=== PATIENT | female | born 1945 | race Caucasian/White ===

== ENCOUNTER → 2024-11-15 08:28 | Outpatient (REF) | payer OTHER, SELFPAY | LOC: RAD 08:28 | PROVIDERS: ATTENDING PHYSICIAN Surgery Vascular Surgery; FAMILY PHYSICIAN Family Medicine | DX: I65.23 Occlusion and stenosis of bilateral carotid arteries (principal) | CPT/HCPCS: 70496; 70498; Q9967 ==

== ENCOUNTER 2024-11-28 22:19 | Observation (INO) | payer OTHER, SELFPAY ==
[2024-11-28] VITALS (9 sets, daily range): BP systolic 139–186; BP diastolic 48–70; BMI 27.3
[2024-11-28 18:19] LABS: Hematocrit 31.8 % (37.0-47.0); Hemoglobin 10.4 g/dL (12.0-16.0); Mean Corp Hgb Conc. 32.7 g/dL (33.0-37.0); Mean Corpuscular Volume 91.6 fL (81.0-99.0); Nucleated Red Blood Cells % 0 %; Platelet Count 343 10^3/uL (130-400); Red Cell Dist. Width 16.9 % (11.5-14.5)
--- NOTE | 2024-11-28 19:08 | ED.GENMED ---
History of Present Illness
General
Chief Complaint: Breathing Problem
Source: patient
Exam Limitations: none
Time Seen by Provider: 11/28/24 19:09
Nursing documentation reviewed up to this point in time: agreed with
History of Present Illness
History of Present Illness:
The patient is a pleasant 79-year-old female with a past medical history of atrial fibrillation and CHF, on Eliquis, who reports fairly sudden onset of feeling as if it was difficult to catch her breath after walking to the bathroom just prior to
arrival. Patient reports that now after sitting, she feels completely fine. Patient denies all chest pain and chest pressure. She denies weight gain. She denies leg pain, as well as history of PE and DVT. She reports she has been taking Eliquis
reliably and does not skip any days. Patient states she just wants to make sure she is okay. She denies fever and sore throat. She reports a mild dry cough. She denies current shortness of breath.
Past History
Past History
ED Past Medical History: Arrthythmia and CHF
ED Past Surgical History: Bowel resection
Social History
Tobacco: Non-smoker
Alcohol: None
Drug: None
Personal: Other
Living: other
Employment: Other
Family History
Family History: Other
Review of Systems
Review of Systems
Allergies reviewed?: Yes
All Other Systems: ROS reviewed and negative except as documented in HPI and ROS
Constitutional: Reports no symptoms
EENT: Reports no symptoms
Respiratory: Reports cough (Dry cough) and trouble breathing
Cardiac: Reports no symptoms
ABD/GI: Reports no symptoms
: Reports no symptoms
Musculoskeletal: Reports edema (Chronic)
Skin: Reports no symptoms
Neurological: Reports no symptoms
Endocrine: Reports no symptoms
Hematologic/Lymphatic: Reports no symptoms
Psychiatric: Reports no symptoms
Phy Exam
Physical Exam
Physical Exam:
Physical Exam
General: no apparent distress, not acutely ill
Neck: supple. no meningeal signs. normal posterior pharynx
Heart: s1/s2 regular rate and rhythm, no murmur. equal radial pulses.
Lungs: no acute respiratory distress. Questionable decreased breath sounds and mild crackles left lower lung base
Abdomen: normal bowel sounds. not tender. no CVAT
Neuro: alert and oriented. no focal neurological deficits
Skin: no rash
Psychiatric: well kept. interactive and cooperative
Extremities: Trace edema. Negative Homans' sign
Scores
Heart Failure Risk
Heart Failure Risk Score: Not Applicable
Course
Orders/Labs/Results
Orders:
Orders
11/28/24 17:51
Electrocardiogram (*1) Urgent
Reason for Study: Chest Pain
EKG- Treatment ONCE
11/28/24 18:00
Complete Blood Count/With Diff Urgent
11/28/24 19:19
Comprehensive Metabolic Panel Urgent
NT-proBNP Urgent
Comment: ADD ON
Troponin I Urgent
11/28/24 19:33
Add On- LAB Urgent
Tests Added?: Pro-BNP
CR Chest - 2 Views Urgent
Comment:
Reason For Exam: SOB
11/28/24 21:07
Furosemide [Lasix] 40 mg IV NOW STA
11/28/24 21:54
Admit/Transfer Patient As Directed
Co-Sign Provider:
Level of Care: Observation services
Assign to:: Telemetry
Physician / Group: Juan M
Diagnosis: CHF
Reason for Telemetry: Subacute Heart Failure
Date to Stop Telemetry: 11/30/24
Time to Stop Telemetry: 11:00
PRN Pain Medication Management As Directed
May give lesser potent ordered pain med per pt: Yes
preference::
Protocol:: Medication orders for pain may be administered in a
manner that supports deferring to patient preference
when the pt is:
- Requesting an ordered lesser potent pain medication.
Least to most potent pain medications are defined
as: acetaminophen < NSAID < tramadol < opioids
(morphine, oxycodone, hydromorphone).
- Requesting a lesser dose of the same medication IF
ORDERED.
- Requesting a less intrusive route of administration
if both routes are prescribed by the provider (PO <
IV).
11/28/24 21:56
Code Status As Directed
Resuscitation Status: Do not resuscitate
Reached after discussion with pt or family/Healthcare POA: Yes
11/28/24 21:57
DNR Bracelet Application ONCE
11/30/24 11:00
DC Protocol for Telemetry ONCE
Abnormal Lab Results
11/28/24
18:00
RBC 3.47 L 10^6/uL
(4.20-5.40)
Hgb 10.4 L g/dL
(12.0-16.0)
Hct 31.8 L %
(37.0-47.0)
MCHC 32.7 L g/dL
(33.0-37.0)
RDW 16.9 H %
(11.5-14.5)
Absolute Lymphs (auto) 0.9 L 10^3/uL
(1.2-3.4)
Neutrophils % 76.9 H %
(42.2-75.2)
Lymphocytes % 12.1 L %
(20.5-51.1)
11/28/24 18:00
11/28/24 19:19
Vital Signs
Initial and Last Documented VS:
Initial Vital Signs
Temp Pulse Resp BP Pulse Ox
98.3 F 57 16 186/70 91
11/28/24 17:48 11/28/24 17:48 11/28/24 17:48 11/28/24 17:48 11/28/24 17:48
Last Documented Vital Signs
Temp Pulse Resp BP Pulse Ox
98.3 F 54 18 162/49 92
11/28/24 17:48 11/28/24 20:00 11/28/24 20:00 11/28/24 20:00 11/28/24 20:00
MDM/Problems Addressed
Differential Diagnosis Includes:
Acute on chronic CHF, pneumonia, acute on chronic anemia
MDM/Problems Addressed:
Patient presents with acute shortness of breath which is now resolved
Chronic conditions affecting care: Cardiomyopathy and Arrhythmia
Acute Exacerbation and/or Progression of Chronic Illness:
Patient's heart rate is in the 50s and there is no sign of active A-fib
*Radiology
Radiology exam reviewed: preliminary read by ED provider (Chest x-ray read by me. Bilateral pleural effusions)
*Pulse Oximetry
SaO2: 91
Oxygen Mode of Delivery: Room air
Patient hypoxic: yes
Comment: Pulse ox 85% with walking. Resting pulse ox is 91 to 95% on room air
*EKG
Interpreted by ED Provider?: Yes
Interpretation: abnormal
Comparison EKG: no changes
Rate: bradycardiac
Rhythm: sinus
Bruneau: left axis deviation
Interval: normal interval and long QT
QRS Pattern: normal QRS
Ischemia: non-specific ST changes
*Plant Ecologist Interpretation
Rate: bradycardiac
Interpretation: normal
Rhythm: sinus
*Critical Care Note
Total Time (30-74mins, 75-104mins- exclusive of procedures): Not Applicable
Data Reviewed
Review of Other/Old Records Reveals: Testing (Cardiac echo from 08/13/2024 showed EF of 70%)
Source: patient and family
Patient Management
Social determinants of health affecting care: Living situation and Strong social support
ED Attending Note
-
Portions of this chart may have been created with voice recognition software.� Occasional wrong word or��sound alike� substitutions may have occurred due to the inherent limitations of voice recognition software.
Discharge Plan
Departure
Patient Disposition: Admit
Date of Disposition: 11/28/24
Time of Disposition: 21:07
Admit to: Telemetry
Presentation/result/management discussed w/ accepting MD/DO: Hospitalist
Patient with high blood pressure during this ER visit?: Yes
Condition: Good
Discharge Problem:
Acute on chronic systolic CHF (congestive heart failure)
Prescriptions:
No Action
metformin 500 mg Tablet
500 mg PO DAILY
atorvastatin 80 mg Tablet
80 mg PO HS
cyanocobalamin (vitamin B-12) 1,000 mcg Tablet
1,000 mcg PO DAILY
lisinopril 10 mg Tablet
10 mg PO DAILY
escitalopram oxalate [Lexapro] 10 mg Tablet
10 mg PO DAILY
ezetimibe [Zetia] 10 mg Tablet
10 mg PO HS
cholecalciferol (vitamin D3) [Vitamin D3] 50 mcg (2,000 unit) Tablet
50 mcg PO DAILY
aspirin 81 mg Tablet,Delayed Release (Dr/Ec)
81 mg PO DAILY Qty: 30 0RF
levothyroxine 150 mcg Tablet
150 mcg PO DAILY
ferrous sulfate [iron] 325 mg (65 mg iron) Tablet
325 mg PO DAILY
umeclidinium-vilanterol [Anoro Ellipta] 62.5-25 mcg/actuation Blister With Device
1 inh INHALATION R DAILY
furosemide 20 mg Tablet
20 mg PO DAILY
Eliquis 5 mg Tablet
5 mg PO BID
melatonin 5 mg Tablet,Chewable
10 mg PO HS
Referrals:
Sari Maynard DO [Family Provider, Family Practice]
Interventions
Interventions:
*Risk Screen - Suicide Last Done: 11/28/24 17:48
*Neglect/Abuse Screening Last Done: 11/28/24 17:48
*ED- Fall Risk Assessment Last Done: 11/28/24 17:48
ED- Cardiac Assessment Last Done: 11/28/24 19:30
ED- Pulmonary Assessment Last Done: 11/28/24 19:30
Discharge Date and Time
Print Language: CITIZEN OF [place]
[2024-11-28 19:51] LABS: ALT (SGPT) 31 U/L (0-35); AST (SGOT) 34 U/L (14-36); Albumin 3.9 g/dl (3.5-5.0); Alkaline Phosphatase 63 U/L (38-126); Blood Urea Nitrogen 14 mg/dl (7-17); Calcium 8.6 mg/dl (8.4-10.2); Carbon Dioxide 26 mmol/L (22-30); Chloride 106 mmol/L (98-107); Glucose 83 mg/dl (70-99); Potassium 4.3 mmol/L (3.5-5.1); Sodium 139 mmol/L (135-145); Total Protein 6.9 g/dl (6.3-8.2); eGFR 58.02
[2024-11-28 20:03] LABS: Troponin I < 0.012 ng/ml
--- NOTE | 2024-11-28 21:59 | HPS.HSE ---
Family Physician
-
Family Physician: Sari Maynard, DO
Chief Complaint
-
SOB
History of Present Illness
Patient is a 79y F with PMH significant for ASCVD, CHF, A-Fib and recent colon polyp surgery who presents to ED complaining of SOB. Patient states that she was 'breathing heavy' after walking to the bathroom this afternoon. She was feeling well
yesterday with no SOB. She denies any chest pain, fevers / chills, changes in medications, etc. Patient states that she has been compliant with her meds including Lasix and checks her weight at home daily. Her weight is not increased at home.
Family noted some swelling of her ankles this evening.
Patient states that she did eat out for breakfast yesterday AM. She had creamed chipped beef (which she states she does weekly).
Medical History
Past Medical History
Past Medical History: Reports Other
Additional Past Medical History:
ASCVD
Chronic HFpEF
Atrial Fibrillation
Hypertension
DM-II
Hypothyroidism
Colon Polyp
Obesity
Past Surgical History: Reports Other
Additional Past Surgical History:
Partial Colectomy (08/02/24 - [facility])
PTCA with Stents
Right TKA
Right CEA
Left Tibia Bone Grafting
DCCV
Social History
Tobacco: Former Smoker (Quit smoking 2 years ago. > 50 pack years total use.)
Alcohol: Occasional
Drug: None
Family History
Family History: Not pertinent
Allergies / Home Medications
Allergies reflects when Allergies were last updated in [facility].
Home Medications with original date entered in [facility]
Allergy/Medication List:
Allergies
Allergy/AdvReac Type Severity Reaction Status Date / Time
No Known Allergies Allergy Verified 11/28/24 17:51
Home Medications
atorvastatin 80 mg tablet 80 mg PO HS High Cholesterol 08/11/24
cholecalciferol (vitamin D3) 50 mcg (2,000 unit) tablet (Vitamin D3) 50 mcg PO DAILY Supplement 08/11/24
cyanocobalamin (vitamin B-12) 1,000 mcg tablet 1,000 mcg PO DAILY Supplement 08/11/24
escitalopram oxalate 10 mg tablet (Lexapro) 10 mg PO DAILY Depression 08/11/24
ezetimibe 10 mg tablet (Zetia) 10 mg PO HS High Cholesterol 08/11/24
lisinopril 10 mg tablet 10 mg PO DAILY Blood Pressure 08/11/24
metformin 500 mg tablet 500 mg PO DAILY Diabetes 08/11/24
aspirin 81 mg tablet,delayed release 81 mg PO DAILY #30 tabs 08/19/24
ferrous sulfate 325 mg (65 mg iron) tablet (iron) 325 mg PO DAILY 10/30/24
levothyroxine 150 mcg tablet 150 mcg PO DAILY 10/30/24
umeclidinium 62.5 mcg-vilanterol 25 mcg/actuation powdr for inhalation (Anoro Ellipta) 1 inh inhalation R DAILY 10/30/24
apixaban 5 mg tablet (Eliquis) 5 mg PO BID 11/28/24
furosemide 20 mg tablet 20 mg PO DAILY 11/28/24
melatonin 5 mg chewable tablet 10 mg PO HS 11/28/24
Review of Systems
-
History Source: Patient
A 12 point ROS was completed and negative except as noted: Yes
Constitutional: Denies Fever or Chills
Respiratory: Reports Cough (chronic / unchanged per patient.) and Trouble Breathing
Cardiac: Denies Chest Pain or Palpitations
Abdomen/GI: Denies Abdominal Pain, Nausea, Vomiting or Diarrhea
: Denies Dysuria or Frequency
Musculoskeletal: Reports Edema; Denies Joint Pain
Neurological: Denies Dizzy or Headache
Physical Exam
Vital Signs
Vital Signs
Temp Pulse Resp BP Pulse Ox
98.3 F 54 18 162/49 92
11/28/24 17:48 11/28/24 20:00 11/28/24 20:00 11/28/24 20:00 11/28/24 20:00
Physical Exam
General: Other (78y F in no acute distress. )
HEENT: Moist mucous membranes and PERRLA
Respiratory: Other (Decreased breath sounds at both bases. Fine bibasilar rales. No wheeze / rhonchi.)
Cardiac: S1/S2, Regular Rhythm and Murmur (II/ MARQUEZ)
GI: Soft, Non Tender, Non Distended, Normal Bowel Sounds and Other (Port sites healing well. Scattered ecchymosis. No tenderness.)
Musculoskeletal: No Clubbing, No Cyanosis and Other (1+ pitting edema b/l LEs.)
Neuro: AO x 3
Laboratory Results
-
11/28/24 18:00
11/28/24 19:19
Laboratory Results
Total Bilirubin 0.9 mg/dl (0.2-1.3) 11/28/24 19:19
AST 34 U/L (14-36) 11/28/24 19:19
ALT 31 U/L (0-35) 11/28/24 19:19
Alkaline Phosphatase 63 U/L (38-126) 11/28/24 19:19
Troponin I < 0.012 ng/ml 11/28/24 19:19
Impression/Plan
-
A/P: Patient is a 79y F with PMH significant for ASCVD, CHF and recent colon resection who presents to ED complaining of SOB.
Acute on Chronic HFpEF
- Observe overnight for further evaluation and treatment.
- Subjective dyspnea with exertion today, mild edema and increased ProBNP.
- IV Lasix BID for now and follow I/Os, daily weights, etc.
- ? exacerbation secondary to dietary indiscretions.
- Follow for clinical improvement.
- Echo done 08/2024 with LVEF = 70% and mild - moderate valvular heart disease.
ASCVD
- Stable. No chest pain / palpitations.
- Continue current CV med regimen including ASA, statin, etc.
- Follow for any new complaints.
Paroxysmal Atrial Fibrillation
- Stable. In sinus bradycardia at present.
- Continue current med regimen including Eliquis.
Benign Hypertension
- Stable. Continue outpatient meds with holding parameters.
DM-II
- Stable. Hold metformin for now.
- Follow glucose and cover with SSI as needed.
- Update A1C.
Hypothyroidism
- Stable. Continue T4 replacement.
- Dose was decreased from 125 to 88mcg in August, but now on 150mcg?
- Update TFTs.
DVT Prophylaxis: On Eliquis
Code Status: DNR
[2024-11-28] MEDS: LASIX 40 MG IV (22:41)
[2024-11-28] MEDS: ZETIA 10 MG PO (23:35)
[2024-11-28] MEDS: LIPITOR 80 MG PO (23:36)
[2024-11-28] MEDS: MELATONIN 10 MG PO (23:36)
[2024-11-28 23:43] LABS: Glucose - Point of Care 108 mg/dl (70-99)
--- NOTE | 2024-11-28 23:45 | PTCARENOTE ---
Received patient from ED via stretcher. Patient ambulated from stretcher to bed x1 assist. AAOx3, no current complaints of pain. Oriented patient to room and placed call serra within reach.
[2024-11-29 00:32] LABS: Troponin I < 0.012 ng/ml
--- NOTE | 2024-11-29 00:33 | W.PN.UPDATE ---
Update Note
Progress Note Update
patient requesting code status to be changed. patient seen, Ox3, able to make own decisions. Code status explained, verbalized understanding.
Code status Full Code.
[2024-11-29 03:15] VITALS: BP 155/55
[2024-11-29] MEDS: SYNTHROID 112 MCG PO (04:57)
[2024-11-29 05:18] LABS: Hematocrit 29.3 % (37.0-47.0); Hemoglobin 9.2 g/dL (12.0-16.0); Mean Corp Hgb Conc. 31.4 g/dL (33.0-37.0); Mean Corpuscular Volume 93.3 fL (81.0-99.0); Platelet Count 298 10^3/uL (130-400); Red Cell Dist. Width 17.1 % (11.5-14.5)
[2024-11-29 05:43] LABS: Blood Urea Nitrogen 15 mg/dl (7-17); Calcium 8.4 mg/dl (8.4-10.2); Carbon Dioxide 28 mmol/L (22-30); Chloride 107 mmol/L (98-107); Estimated Creatinine Clearance 39 ml/min; Glucose 93 mg/dl (70-99); Potassium 4.1 mmol/L (3.5-5.1); Sodium 139 mmol/L (135-145); eGFR 51.75
[2024-11-29 06:00] VITALS: BMI 27.1
[2024-11-29 06:04] LABS: Troponin I < 0.012 ng/ml
[2024-11-29 06:28] LABS: Hepatitis C Antibody Negative (Negative)
[2024-11-29 07:36] VITALS: BP 132/63
[2024-11-29 07:51] LABS: Glucose - Point of Care 97 mg/dl (70-99)
[2024-11-29 08:13] LABS: Magnesium 2.1 mg/dl (1.6-2.3)
[2024-11-29] MEDS: VITAMIN D3 (cholecalciferol) 50 MCG PO (08:15)
[2024-11-29] MEDS: LEXAPRO 10 MG PO (08:15)
[2024-11-29] MEDS: VITAMIN B-12 1000 MCG PO (08:15)
[2024-11-29] MEDS: FEOSOL 325 MG PO (08:15)
[2024-11-29] MEDS: ELIQUIS 5 MG PO ×2 (08:15→22:08)
[2024-11-29] MEDS: LASIX 40 MG IV ×2 (08:15→15:48)
[2024-11-29] MEDS: ZESTRIL 10 MG PO (08:15)
[2024-11-29] MEDS: ASPIR LOW (ENTERIC COATED) 81 MG PO (08:15)
[2024-11-29] MEDS: SPIRIVA RESPIMAT 2.5 MCG 2 PUFF INH (08:27)
--- NOTE | 2024-11-29 08:28 | VNURNOTE ---
Chart reviewed. Patient is current with [facility]. Will continue to follow hospital course and DC plans.
--- NOTE | 2024-11-29 08:39 | W.PN.HOSP.TC ---
Today's Communication/Plan
-
See PN
Assessment / Plan
Assessment / Plan
79yo F with Afib on eliquis, HLD, OREN, HTN, DM, anxiety, COPD came with SOB on excertion started overnight. She was on the democrat over past weekend and had some potato salad and other food that was pretty salty that (as per pt) - she did not suppose
to eat. Admitted with weight gain, elevated BNP and signs of pulmonary edema on XR, managed for subacute CHF
#Acute on chronic HFpEF exacerbation
#QTc prolongation
#Afib, paroxysmal s/p successful DEWAYNE and cardioversion August 19 2024
#BRadycardia
#CKD stage 3a
#CAD s/p PCI (@21, @23)
#Moderate MR
Lasix, daily weight, follow and replete electrolyts. follow Cr
Counselled on low sodium diet and fluid restriction
recently taken off Amiodarone due to beckie
cont rate contro and telemetry
Eliquis
Cardio follow up
Trop WNL
#OREN
stable
Had colonoscopy and EGD in July 2024 as per patient
on iron pills
follow up with PCP
#DM type 2 with circulatory complications
Insulin SS, accuchecks, DM diet
Check HgbA1c
#PAD
#Carotid stenosis
#Hypothyroidism
#Essential HTN
#Anxiety
#B12 deficiency
#COPD not in exacerbation
cont home meds
check TSH
DVT ppx Elqiusi
Full code
I have spent at least 51min reviewing chart, test results, communication with consultantans and providing direct patent care
Anticipated Discharge: 24 - 48 hours
Subjective/Interval History
-
Date of Service: November 29, 2024
Objective Data
-
Labs:
Laboratory Results
07/24/25 07/25/25
19:19 05:07
WBC 6.6
Hgb 9.2 L
Hct 29.3 L
Plt Count 298
Sodium 139 139
Potassium 4.3 4.1
Chloride 106 107
Carbon Dioxide 26 28
BUN 14 15
Creatinine 1.0 1.1 H
Glucose 83 93
Calcium 8.6 8.4
Total Bilirubin 0.9
AST 34
ALT 31
Alkaline Phosphatase 63
Vital Signs:
Vital Signs
Temp Pulse Resp BP Pulse Ox
97.8 F 60 18 132/63 92
11/29/24 07:36 11/29/24 08:35 11/29/24 08:35 11/29/24 08:15 11/29/24 08:35
I&O
11/28/24 11/29/24 11/30/24
06:59 06:59 06:59
Intake Total 480 / 480
Balance 480 / 480
Review of Systems
-
History Source: Patient
All other systems: Reviewed and negative
Physical Exam
-
General: No Apparent Distress
Cardiac: Irregular Rhythm and Murmur (mid systolic)
Musculoskeletal: No Clubbing, No Cyanosis and No Edema
Neuro: Awake, Alert, Oriented and AO x 3
Psych: Calm
[2024-11-29 09:08] LABS: Glycohemoglobin (HgbA1c) 4.9 % (4.0-5.6)
[2024-11-29 11:55] VITALS: BP 152/61
[2024-11-29 12:37] LABS: Glucose - Point of Care 102 mg/dl (70-99)
--- NOTE | 2024-11-29 14:13 | CM ---
Initial assessment completed with patient whose niece lives with her in a 2 story home with full B/B setup on 1st floor, 3 steps to enter. 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 No other DME. Did have [facility] RN services. Will
resume. No longer drives. Her niece is her caregiver 5 days a week for 8 hrs/day. PCP is Dr. Tatiana Maynard. Pharmacy is [facility] in [place]. Does have [facility]. Discharge POC: Home with resumption of [facility] RN.
[2024-11-29 15:59] VITALS: BP 120/49
[2024-11-29 16:40] LABS: Glucose - Point of Care 139 mg/dl (70-99)
[2024-11-29 19:45] VITALS: BP 127/51
[2024-11-29] MEDS: ZETIA 10 MG PO (22:04)
[2024-11-29] MEDS: LIPITOR 80 MG PO (22:04)
[2024-11-29] MEDS: MELATONIN 10 MG PO (22:04)
[2024-11-29 22:13] LABS: Glucose - Point of Care 116 mg/dl (70-99)
[2024-11-29 23:14] VITALS: BP 119/54
[2024-11-30 03:43] VITALS: BP 91/53
[2024-11-30] MEDS: SYNTHROID 112 MCG PO (05:40)
[2024-11-30 06:00] VITALS: BMI 26.9
[2024-11-30 06:35] VITALS: BP 112/53
[2024-11-30] MEDS: SPIRIVA RESPIMAT 2.5 MCG 2 PUFF INH (07:35)
[2024-11-30 07:56] VITALS: BP 139/44
[2024-11-30 08:24] LABS: Glucose - Point of Care 102 mg/dl (70-99)
[2024-11-30] MEDS: LEXAPRO 10 MG PO (09:13)
[2024-11-30] MEDS: ELIQUIS 5 MG PO (09:13)
[2024-11-30] MEDS: VITAMIN D3 (cholecalciferol) 50 MCG PO (09:13)
[2024-11-30] MEDS: VITAMIN B-12 1000 MCG PO (09:13)
[2024-11-30] MEDS: FEOSOL 325 MG PO (09:13)
[2024-11-30] MEDS: ASPIR LOW (ENTERIC COATED) 81 MG PO (09:13)
[2024-11-30 09:29] LABS: Hematocrit 31.7 % (37.0-47.0); Hemoglobin 10.1 g/dL (12.0-16.0); Mean Corp Hgb Conc. 31.9 g/dL (33.0-37.0); Mean Corpuscular Volume 93.8 fL (81.0-99.0); Nucleated Red Blood Cells % 0 %; Platelet Count 322 10^3/uL (130-400); Red Cell Dist. Width 16.9 % (11.5-14.5)
[2024-11-30 09:58] LABS: Blood Urea Nitrogen 19 mg/dl (7-17); Calcium 8.7 mg/dl (8.4-10.2); Carbon Dioxide 30 mmol/L (22-30); Chloride 102 mmol/L (98-107); Estimated Creatinine Clearance 33 ml/min; Glucose 116 mg/dl (70-99); Magnesium 2.3 mg/dl (1.6-2.3); Potassium 4.0 mmol/L (3.5-5.1); Sodium 139 mmol/L (135-145); eGFR 42.35
[2024-11-30] MEDS: ZESTRIL 10 MG PO (10:22)
[2024-11-30] MEDS: LASIX IV (10:27)
--- NOTE | 2024-11-30 10:31 | W.PN.HOSP.TC ---
Today's Communication/Plan
-
Weight decreased by 1 KG, Cr expectedly elevated to 1.3 from 1.1
Pending cardiology reccs for outpatient regimen
Assessment / Plan
Assessment / Plan
79yo F with Afib on eliquis, HLD, OREN, HTN, DM, anxiety, COPD came with SOB on excertion started overnight. She was on the constitution party over past weekend and had some potato salad and other food that was pretty salty that (as per pt) - she did not suppose
to eat. Admitted with weight gain, elevated BNP and signs of pulmonary edema on XR, managed for subacute CHF. Weight decreased by 1kg, symptoms resolved. Cr elevated and patient will be recommended to repeat BMP in 5 days. Cardiology to provide
outpatient reccomendations
A/P:
#Acute on chronic HFpEF exacerbation
#QTc prolongation
#Afib, paroxysmal s/p successful DEWAYNE and cardioversion August 19 2024
#BRadycardia
#CKD stage 3a
#CAD s/p PCI (@21, @23)
#Moderate MR
Lasix, daily weight, follow and replete electrolytes. follow Cr
Counselled on low sodium diet and fluid restriction
recently taken off Amiodarone due to beckie
cont rate control and telemetry
Eliquis
Cardio consult
Trop WNL
#OREN
stable
Had colonoscopy and EGD in July 2024 as per patient
on iron pills
follow up with PCP
#DM type 2 with circulatory complications
Insulin SS, accuchecks, DM diet
HgbA1c 4.9 - advised to discuss stopping Metformin with PCP
#PAD
#Carotid stenosis
#Hypothyroidism
#Essential HTN
#Anxiety
#B12 deficiency
#COPD not in exacerbation
cont home meds
TSH low, so Synthroid decreased - repeat with PCP in2-3 weeks
DVT ppx Eliquis
Full code
I have spent at least 36min reviewing chart, test results, communication with consultantans and providing direct patent care
Anticipated Discharge: Within 24 hours
Subjective/Interval History
-
Date of Service: November 30, 2024
Objective Data
-
Labs:
Laboratory Results
11/30/24
08:54
WBC 7.9
Hgb 10.1 L
Hct 31.7 L
Plt Count 322
Sodium 139
Potassium 4.0
Chloride 102
Carbon Dioxide 30
BUN 19 H
Creatinine 1.3 H
Glucose 116 H
Calcium 8.7
Vital Signs:
Vital Signs
Temp Pulse Resp BP Pulse Ox
98 F 55 16 133/44 96
11/30/24 07:56 11/30/24 10:22 11/30/24 07:56 11/30/24 10:22 11/30/24 09:51
I&O
11/29/24 11/30/24 12/01/24
06:59 06:59 06:59
Intake Total 480 / 480 1200 / 1200
Balance 480 / 480 1200 / 1200
Review of Systems
-
History Source: Patient
All other systems: Reviewed and negative
Physical Exam
-
General: No Apparent Distress
HEENT: Normocephalic
Cardiac: Regular Rhythm
GI: Soft, Nontender and Nondistended
Neuro: Awake, Alert, Oriented and AO x 3
Psych: Calm
--- NOTE | 2024-11-30 10:37 | W.DCSUMMARY ---
Discharge Summary
Discharge Data
Date of Admission: 11/28/24
Date of Discharge: 11/30/24
-
Pending Results: No
Hospital Course
9yo F with Afib on eliquis, HLD, OREN, HTN, DM, anxiety, COPD came with SOB on excertion started overnight. She was on the constitution party over past weekend and had some potato salad and other food that was pretty salty that (as per pt) - she did not suppose
to eat. Admitted with weight gain, elevated BNP and signs of pulmonary edema on XR, managed for subacute CHF. Weight decreased by 1kg, symptoms resolved. Cr elevated and patient will be recommended to repeat BMP in 5 days. Cardiology provided
outpatient reccomendations. Patient is medically stable for d/c home.
I have spent at least 51min reviewing chart, test results, communication with consultantans and providing direct patent care
Patient was managed for
#Acute on chronic HFpEF exacerbation
#QTc prolongation
#Afib, paroxysmal s/p successful DEWAYNE and cardioversion August 19 2024
#Bradycardia
#CKD stage 3a
#CAD s/p PCI (@21, @23)
#Moderate MR
#OREN
#DM type 2 with circulatory complications
#PAD
#Carotid stenosis
#Hypothyroidism
#Essential HTN
#Anxiety
#B12 deficiency
#COPD not in exacerbation
Discharge Plan
-
Patient Disposition: Home (Routine Discharge)
Discharge Diagnosis/Procedures: CHF
Diet: 2 Gram Sodium, Diabetic, Carb Controlled and Restrict fluids to 64 oz
Blood Work: BMP in 5 days with PCP, TFT in 2 weeks with PCP
Specialty Instructions: Weigh Daily- Call MD for wt gain/loss 3 lbs overnight/5 lbs in 1 week
Referrals:
Lois Truong, [Active, Cardiology] - 12/19/24 9:00 am
Referral Note: You have an appt to see Dr. Peña's physician project assistant, Rosaline, at the [place] office on 12/19/24 at 9 AM.
Sari Maynard DO [Family Provider, Family Practice] - in less than 1 week
Referral Note: BMP blood test in 5 days after discharge, thyroid function test in 2-3 weeks upon discharge, since Synthroid dose decreased
Additional Discharge Medication Instructions: -Discuss to stop metformin with family doctor, since HgbA1c is 4.9%
-Take an extra Lasix (furosemide) 40 mg (Lasix 40 mg twice daily for 1 day only) as needed for weight gain following salty meals at the holidays.
Prescriptions:
New
levothyroxine 112 mcg Tablet
125 mcg PO DAILY @ 0600 Qty: 30 0RF
furosemide [Lasix] 40 mg tablet
40 mg PO DAILY Qty: 30 11RF
Continued
metformin 500 mg Tablet
500 mg PO DAILY
atorvastatin 80 mg Tablet
80 mg PO HS
cyanocobalamin (vitamin B-12) 1,000 mcg Tablet
1,000 mcg PO DAILY
lisinopril 10 mg Tablet
10 mg PO DAILY
escitalopram oxalate [Lexapro] 10 mg Tablet
10 mg PO DAILY
ezetimibe [Zetia] 10 mg Tablet
10 mg PO HS
cholecalciferol (vitamin D3) [Vitamin D3] 50 mcg (2,000 unit) Tablet
50 mcg PO DAILY
aspirin 81 mg Tablet,Delayed Release (Dr/Ec)
81 mg PO DAILY Qty: 30 0RF
ferrous sulfate [iron] 325 mg (65 mg iron) Tablet
325 mg PO DAILY
umeclidinium-vilanterol [Anoro Ellipta] 62.5-25 mcg/actuation Blister With Device
1 inh INHALATION R DAILY
Eliquis 5 mg Tablet
5 mg PO BID
melatonin 5 mg Tablet,Chewable
10 mg PO HS
Discontinued
levothyroxine 150 mcg Tablet
150 mcg PO DAILY
furosemide 20 mg Tablet
20 mg PO DAILY
Discharge Orders:
Discharge Patient (As Directed); Ordered 11/30/24
Ordered By: Azam Chavez
Discharge Date and Time
Print Language: [id number]
[2024-11-30 11:08] VITALS: BP 113/51
--- NOTE | 2024-11-30 11:15 | CON.CAR ---
Addendum entered and electronically signed by Fermin Peña DO 11/30/24 11:55:
I saw and examined the patient.
The Director Mobile's note was reviewed and I agree with the note.
Comment:
Plan:
HPI: Went to the ER with SOB and LE edema on 11/28/2024 and was admitted with acute HFpEF, cardiology is now consulted. Patient was last admitted for acute HFpEF in the setting of recurrent A-fib from 08/21/2024 until 08/19/2024. Patient had
successful DEWAYNE/CV at that time. Patient was also started on amiodarone at that time. Patient was last seen in cardiology office on 10/11/2024 and at that time was bradycardic and so a 3-day monitor was placed. 3-day monitor showed an average heart
rate of 50 bpm and patient was SR throughout, no atrial arrhythmia detected. Patient was also complaining of tremors on a separate telephone call test to the office. Amiodarone was stopped 10/2024. Patient came to the ER with increased SOB
described as intermittent BHAKTA and increased LE edema. Patient had noticed weight gain at home, but only a couple of pounds. Patient figured this was related to a family picnic she attended where she ate lots of salt rich foods. proBNP was 6610
and CXR suggested mild acute HF. Patient was diuresed with Lasix 40 mg IV twice daily and reports symptomatic improvement in breathing and edema.
Wt is down with IV diuresis
She was taking lasix 20 mg daily as outpt. Will increase lasix to 40 mg PO daily as outpt and can take additional lasix as needed with Holiday meals.
Check BMP before follow up appt
Cont ASA for hx PCI
Follow up appt with cardiology in Dec
Discussed with nursing
Remains sinus, cont Eliquis
-EF preserved at 55 to 60% by DEWAYNE 08/19/2024.
Stable for d/c from cardiac standpoint.
-Patient is scheduled for cardiology follow-up in the office on 12/19/2024 and is then scheduled for TCAR with Dr. Davila on 01/02/2025
Discussed with nursing.
Original Note:
Consultation
Consultation Request
Date/Time Consultation Requested: 11/30/2024
Date/Time Consultation Performed: 11/30/2024
Requesting Provider: Dr. Chavez
Performing Provider: Dr. Peña
Reason for Consultation: Acute HFpEF
Medical History
-
History of Present Illness:
Patient came to the ER with SOB and LE edema on 11/28/2024 and was admitted with acute HFpEF, cardiology is now consulted. Patient was last admitted for acute HFpEF in the setting of recurrent A-fib from 08/21/2024 until 08/19/2024. Patient had
successful DEWAYNE/CV at that time. Patient was also started on amiodarone at that time. Patient was last seen in cardiology office on 10/11/2024 and at that time was bradycardic and so a 3-day monitor was placed. 3-day monitor showed an average heart
rate of 50 bpm and patient was SR throughout, no atrial arrhythmia detected. Patient was also complaining of tremors on a separate telephone call test to the office. Amiodarone was stopped 10/2024. Patient came to the ER with increased SOB
described as intermittent BHAKTA and increased LE edema. Patient had noticed weight gain at home, but only a couple of pounds. Patient figured this was related to a family picnic she attended where she ate lots of salt rich foods. proBNP was 6610
and CXR suggested mild acute HF. Patient was diuresed with Lasix 40 mg IV twice daily and reports symptomatic improvement in breathing and edema.
PMH:
Recent admission for acute HFpEF 08/11/2024 until 08/19/2024
Chronic HFpEF
EF 55 to 60% by DEWAYNE 08/19/2024
Paroxysmal A-fib
s/p successful DEWAYNE/CV 08/19/2024
Previously managed with amiodarone, but stopped due to tremors 10/2024
Chronic Eliquis OAC
Colon polyp with recent resection/colectomy 08/02/2024 ([facility])
Coronary artery disease
s/p OM1 TOSIN 2000
s/p D1 TOSIN in May 2022 ([facility])
Hypertension
Hyperlipidemia
Type 2 diabetes
Mild to moderate mitral regurgitation by DEWAYNE 08/19/2024
Hypothyroidism
Obesity
Vertigo
PAD/right carotid surgery, CTA head and neck May 2024 greater than 80% LICA stenosis
Scheduled for TCAR with Dr. Davila 01/02/2025
Past Medical History
Past Medical History: Other (See HPI)
Past Surgical History: Bowel Resection (08/02/2024 a [facility]), Cardiac (Drug-eluting stent May 2022), Orthopedic (Right knee replacement, left tibial fracture with surgery) and Other (Right carotid endarterectomy)
Social History
Tobacco: Former Smoker (Quit 2022)
Alcohol: Occasional
Drug: None
Personal:
Living: With Family (Niece)
Family History
Family History: CAD (Brother suddenly in his 60s while playing tennis)
Allergies / Home Medications
Allergy/AdvReac Type Severity Reaction Status Date / Time
No Known Allergies Allergy Verified 11/28/24 17:51
�Medication �Instructions �Recorded �Confirmed �Type
atorvastatin 80 mg tablet 80 mg PO HS High Cholesterol 08/11/24 11/28/24 History
cholecalciferol (vitamin D3) 50 50 mcg PO DAILY Supplement 08/11/24 11/28/24 History
mcg (2,000 unit) tablet (Vitamin
D3)
cyanocobalamin (vitamin B-12) 1,000 mcg PO DAILY Supplement 08/11/24 11/28/24 History
1,000 mcg tablet
escitalopram oxalate 10 mg tablet 10 mg PO DAILY Depression 08/11/24 11/28/24 History
(Lexapro)
ezetimibe 10 mg tablet (Zetia) 10 mg PO HS High Cholesterol 08/11/24 11/28/24 History
lisinopril 10 mg tablet 10 mg PO DAILY Blood Pressure 08/11/24 11/28/24 History
metformin 500 mg tablet 500 mg PO DAILY Diabetes 08/11/24 11/28/24 History
aspirin 81 mg tablet,delayed 81 mg PO DAILY #30 tabs 08/19/24 11/28/24 Rx
release
ferrous sulfate 325 mg (65 mg 325 mg PO DAILY Supplement 10/30/24 11/28/24 History
iron) tablet (iron)
levothyroxine 150 mcg tablet 150 mcg PO DAILY Thyroid 10/30/24 11/28/24 History
umeclidinium 62.5 mcg-vilanterol 1 inh inhalation R DAILY 10/30/24 11/28/24 History
25 mcg/actuation powdr for Lung/Breathing Issues
inhalation (Anoro Ellipta)
apixaban 5 mg tablet (Eliquis) 5 mg PO BID Blood Clot 11/28/24 11/28/24 History
Prevention/Tx
furosemide 20 mg tablet 20 mg PO DAILY Fluid 11/28/24 11/28/24 History
Retention/Swelling
melatonin 5 mg chewable tablet 10 mg PO HS Sleep 11/28/24 11/28/24 History
Review of Systems
-
History Source: Patient and Family (Edward, Guerita, on phone throughout HPI)
All other systems: Negative unless noted
Physical Exam
Vital Signs
Temp Pulse Resp BP Pulse Ox
98 F 55 16 133/44 96
11/30/24 07:56 11/30/24 10:22 11/30/24 07:56 11/30/24 10:22 11/30/24 09:51
GEN: NAD. AAOx3
HEENT: EOMI
LUNGS: RA. CTA B/L, no wheeze
CV: SR on tele. Reg, no murmur
ABD: ND
EXT: Trace B/L LE edema
NEURO: Gross non-focal
SKIN: Warm, pink, dry. No rash
Lab Results
11/30/24 08:54
11/30/24 08:54
Troponin I < 0.012 ng/ml 11/29/24 05:07
Muc-Z-[id number] Pept 6610 pg/ml 11/28/24 19:19
Impression / Plan
-
PCP: Sari Maynard
Stainless Steel Finisher: Juan Carlos Fatima
Impression:
Admitted with acute HFpEF 11/28/2024
Recent admission for acute HFpEF 08/11/2024 until 08/19/2024
Acute on chronic HFpEF
EF 55 to 60% by DEWAYNE 08/19/2024
Paroxysmal A-fib
s/p successful DEWAYNE/CV 08/19/2024
Previously managed with amiodarone, but stopped due to tremors 10/2024
Chronic Eliquis OAC
Colon polyp with recent resection/colectomy 08/02/2024 ([facility])
Coronary artery disease
s/p OM1 TOSIN 2000
s/p D1 TOSIN in May 2022 ([facility])
Hypertension
Hyperlipidemia
Type 2 diabetes
Mild to moderate mitral regurgitation by DEWAYNE 08/19/2024
Hypothyroidism
Obesity
Vertigo
PAD/right carotid surgery, CTA head and neck May 2024 greater than 80% LICA stenosis
Scheduled for TCAR with Dr. Davila 01/02/2025
Echo 07/24/24 [facility]: EF 65 to 70% moderate left atrial dilation. Aortic sclerosis without stenosis. Severe MAC with moderate mitral regurgitation, mild TR, PAP 33 mmHg
ECHO 08/13/24: EF 70%, no regional wall motion abnormalities noted, mildly dilated LA, mild to moderate MS with mean gradient 7 mmHg, mild to moderate MR, mild to moderate TR, moderate to severe pulmonary hypertension with PAP 50 to 55 mmHg
DEWAYNE 08/19/24: EF 55 to 60%, no HECTOR thrombus, mild to moderate MR, mild to moderate TR
Plan:
-Patient came to the ER with SOB and LE edema on 11/28/2024 and was admitted with acute HFpEF, cardiology is now consulted. Patient was last admitted for acute HFpEF in the setting of recurrent A-fib from 08/21/2024 until 08/19/2024. Patient had
successful DEWAYNE/CV at that time. Patient was also started on amiodarone at that time. Patient was last seen in cardiology office on 10/11/2024 and at that time was bradycardic and so a 3-day monitor was placed. 3-day monitor showed an average heart
rate of 50 bpm and patient was SR throughout, no atrial arrhythmia detected. Patient was also complaining of tremors on a separate telephone call test to the office. Amiodarone was stopped 10/2024. Patient came to the ER with increased SOB
described as intermittent BHAKTA and increased LE edema. Patient had noticed weight gain at home, but only a couple of pounds. Patient figured this was related to a family picnic she attended where she ate lots of salt rich foods. proBNP was 6610
and CXR suggested mild acute HF. Patient was diuresed with Lasix 40 mg IV twice daily and reports symptomatic improvement in breathing and edema.
-ECG and telemetry reviewed by me show SR. QTc 511 ms by ECG 11/28/2024
-Weight is down at least 2 lbs with Lasix 40 mg IV BID diuresis. Patient was taking Lasix 20 mg PO daily prior to admission. Talked with patient and her niece, Guerita, by phone and we made a plan to increase the outpatient Lasix dose to 40 mg PO
daily. We also made a plan for additional Lasix 40 mg once a day as needed for weight gain associated with holiday meals.
-Lasix dosing changes updated on discharge med list by me, also updated hospitalist attending
-Cre was 1.1 on admission and is up to 1.3 on 11/30/2024. Recheck BMP in 1 week, lab slip generated in [facility] by me.
-EF preserved at 55 to 60% by DEWAYNE 08/19/2024.
-Patient is not chronically on BB due to sinus bradycardia with average heart rate 50 by outpatient monitor 10/2024
-Outpatient dose of lisinopril 10 mg daily has been continued
-Patient is not chronically on aldosterone antagonist
-Patient is not chronically on an SGLT2 inhibitor due to intermittent procedures and risk for infection, we will address this as an outpatient once she has recovered from her upcoming TCAR
-Remains in SR by ECG and telemetry reviewed by me. Outpatient dose of amiodarone stopped 10/2024 due to tremor and sinus bradycardia on monitor 10/2024.
-Outpatient dose of Eliquis 5 mg BID (age 79, Cre 1.3) should be continued
-Patient with known CAD and last stent was 05/2022. Outpatient dose of aspirin 81 mg daily should be continued
-Patient is scheduled for cardiology follow-up in the office on 12/19/2024 and is then scheduled for TCAR with Dr. Davila on 01/02/2025
--- NOTE | 2024-11-30 12:34 | CM ---
CM reviewed chart and noted dc order
Bedside meeting with pt
Plan for home with [facility]- update provided via [facility] order requested
IMM not issued as pt remains OBS
Pt contacted niece for ride home
Discharge Disposition- home with [facility], niece transport
== END 2024-11-30 12:41 | disposition home health service (06) ==
LOC: 4 EAST ACU 22:19
PROVIDERS: Emergency Medicine; ADMITTING PHYSICIAN Hospitalist; ATTENDING PHYSICIAN Internal Medicine; CONSULT PHYSICIAN Nuclear Medicine Nuclear Cardiology; EMERGENCY PHYSICIAN Emergency Medicine; FAMILY PHYSICIAN Family Medicine
DX: I13.0 Hypertensive heart and chronic kidney disease with heart failure and stage 1 through stage 4 chronic kidney disease, or unspecified chronic kidney disease (principal); I50.33 Acute on chronic diastolic (congestive) heart failure; N18.31 Chronic kidney disease, stage 3a; I25.10 Atherosclerotic heart disease of native coronary artery without angina pectoris; Z79.899 Other long term (current) drug therapy; I48.0 Paroxysmal atrial fibrillation; E03.9 Hypothyroidism, unspecified; Z95.5 Presence of coronary angioplasty implant and graft; E78.5 Hyperlipidemia, unspecified; E66.9 Obesity, unspecified; Z68.26 Body mass index [BMI] 26.0-26.9, adult; Z66 Do not resuscitate; R25.1 Tremor, unspecified; E11.22 Type 2 diabetes mellitus with diabetic chronic kidney disease; E11.59 Type 2 diabetes mellitus with other circulatory complications; E11.51 Type 2 diabetes mellitus with diabetic peripheral angiopathy without gangrene; I65.29 Occlusion and stenosis of unspecified carotid artery; F41.9 Anxiety disorder, unspecified; E53.8 Deficiency of other specified B group vitamins; J44.9 Chronic obstructive pulmonary disease, unspecified; I70.0 Atherosclerosis of aorta; Z79.01 Long term (current) use of anticoagulants; Z79.82 Long term (current) use of aspirin; Z79.84 Long term (current) use of oral hypoglycemic drugs; Z87.891 Personal history of nicotine dependence
CPT/HCPCS: 71046; 80048; 80053; 82962; 83036; 83735; 83880; 84439; 84443; 84484; 85025; 85027; 86803; 93005; 94640; 96374; 99285; G0378

== ENCOUNTER → 2024-12-05 08:21 | Outpatient (REF) | payer OTHER, SELFPAY | LOC: PET 08:21 | PROVIDERS: ATTENDING PHYSICIAN Internal Medicine | DX: R91.8 Other nonspecific abnormal finding of lung field (principal) | CPT/HCPCS: 78815; A9552 ==

== ENCOUNTER → 2024-12-30 13:00 | Outpatient (REF) | payer OTHER, SELFPAY ==
[2024-12-30 11:42] LABS: Hematocrit 31.0 % (37.0-47.0); Hemoglobin 9.9 g/dL (12.0-16.0); Mean Corp Hgb Conc. 31.9 g/dL (33.0-37.0); Mean Corpuscular Volume 96.6 fL (81.0-99.0); Nucleated Red Blood Cells % 0 %; Platelet Count 304 10^3/uL (130-400); Red Cell Dist. Width 14.5 % (11.5-14.5)
[2024-12-30 11:43] LABS: INR 1.59; PT 19.2 Sec (11.4-14.6)
[2024-12-30 11:44] LABS: APTT 29.3 Sec (23.4-35.0)
[2024-12-30 12:02] LABS: Blood Urea Nitrogen 26 mg/dl (7-17); Calcium 8.5 mg/dl (8.4-10.2); Carbon Dioxide 28 mmol/L (22-30); Chloride 109 mmol/L (98-107); Glucose 90 mg/dl (70-99); Potassium 4.7 mmol/L (3.5-5.1); Sodium 143 mmol/L (135-145); eGFR 51.75
[2024-12-30 12:31] VITALS: BMI 27.9
--- NOTE | 2024-12-31 09:14 | PTCARENOTE ---
LATE ENTRY: Abn CXR Dr. Kraus notified (12/30), no additional interventions requested.
--- NOTE | 2025-01-01 08:25 | PTCARENOTE ---
Patients 12/30 INR 1.59, Radha @ Dr. Gray office notified
== END ==
LOC: SDSPAT 13:00
PROVIDERS: ATTENDING PHYSICIAN Surgery Vascular Surgery; FAMILY PHYSICIAN Family Medicine; REFERRING PHYSICIAN Internal Medicine Cardiovascular Disease
DX: I65.23 Occlusion and stenosis of bilateral carotid arteries (principal)
CPT/HCPCS: 36415; 80048; 85025; 85610; 85730; 86850; 86900; 86901

== ENCOUNTER 2025-01-04 00:43 | Inpatient (IN) | payer OTHER, SELFPAY ==
[2025-01-03] VITALS (8 sets, daily range): BP systolic 128–194; BP diastolic 47–84
[2025-01-03 21:21] LABS: Hematocrit 31.9 % (37.0-47.0); Hemoglobin 10.4 g/dL (12.0-16.0); Mean Corp Hgb Conc. 32.6 g/dL (33.0-37.0); Mean Corpuscular Volume 94.1 fL (81.0-99.0); Nucleated Red Blood Cells % 0 %; Platelet Count 327 10^3/uL (130-400); Red Cell Dist. Width 14.3 % (11.5-14.5)
[2025-01-03] MEDS: NITROGLYCERIN PREMIX 250 IV (21:29)
[2025-01-03 21:40] LABS: ALT (SGPT) 21 U/L (0-35); AST (SGOT) 25 U/L (14-36); Albumin 3.6 g/dl (3.5-5.0); Alkaline Phosphatase 66 U/L (38-126); Blood Urea Nitrogen 19 mg/dl (7-17); Calcium 8.4 mg/dl (8.4-10.2); Carbon Dioxide 27 mmol/L (22-30); Chloride 109 mmol/L (98-107); Estimated Creatinine Clearance 45 ml/min; Glucose 116 mg/dl (70-99); Potassium 4.8 mmol/L (3.5-5.1); Sodium 141 mmol/L (135-145); Total Protein 6.8 g/dl (6.3-8.2); eGFR 51.75
[2025-01-03 21:50] LABS: Troponin I < 0.012 ng/ml
--- NOTE | 2025-01-03 23:11 | ED.GENMED ---
History of Present Illness
<Zachary Celis PA-C - Last Filed: 01/04/25 02:30>
General
Chief Complaint: Breathing Problem
Time Seen by Provider: 01/03/25 20:54
History of Present Illness
History of Present Illness:
79-year-old male presents to the emergency department for evaluation of shortness of breath. She called EMS due to abrupt onset of dyspnea and was found to be saturating in the 80s, was placed promptly on BiPAP which she did not tolerate, was then
given IV nitroglycerin bolus and started on supplemental nasal cannula oxygen She was placed on 6 L nasal cannula by the time she arrived in the ED her symptoms had dramatically improved. She denies chest pain or leg swelling. She has been
compliant with her medications however was scheduled for an outpatient carotid endarterectomy that has since been postponed, she did hold her Eliquis for several days earlier in the week in anticipation of this but is restarted once the procedure
was postponed.
Past History
<Zachary Celis PA-C - Last Filed: 01/04/25 02:30>
Past History
ED Past Medical History: Arrthythmia and CHF
ED Past Surgical History: Bowel resection
Social History
Tobacco: Non-smoker
Alcohol: None
Drug: None
Personal: Other
Living: other
Employment: Other
Family History
Family History: Other
Review of Systems
<Zachary Celis PA-C - Last Filed: 01/04/25 02:30>
Review of Systems
Allergies reviewed?: Yes
All Other Systems: ROS reviewed and negative except as documented in HPI and ROS
Phy Exam
<Zachary Celis PA-C - Last Filed: 01/04/25 02:30>
Physical Exam
Physical Exam:
GEN: Well appearing, NAD, WDWN
HEENT: Oral mucosa moist, no scleral icterus
Cardiac: Bradycardic and irregular
Lung: Tachypneic however no accessory muscle use, diminished bibasilar breath
MSK: No gross deformity or injuries
Skin: Good color, no pallor or jaundice, no rashes
Neuro: AO x3, moves all extremities freely
Psych: Calm, cooperative
Scores
<Zachary Celis PA-C - Last Filed: 01/04/25 02:30>
Heart Failure Risk
Heart Failure Risk Score: Not Applicable
Course
<Zachary Celis PA-C - Last Filed: 01/04/25 02:30>
Orders/Labs/Results
Orders:
Orders
01/03/25 20:59
Nitroglycerin 100 mg/250 ml [Nitroglycerin Premix] 100 mg in 250 ml .ROUTE .STK-MED
01/03/25 21:11
Electrocardiogram (*1) Urgent
Reason for Study: Other
Other Reason for Exam: Respiratory Distress
Cardiac Monitoring- Treatment ONCE
EKG- Treatment ONCE
O2 Therapy [RESP] Urgent
Titrate/Wean O2 to maintain O2 sat greater than (%): 93
Special Instructions: TO MAINTAIN CONTINUOUS O2 SATS >/= 93%
Pulse Ox/cont/shift [RESP] Urgent
Quantity: 1
Special Instructions: continuous pulse ox
01/03/25 21:12
Comprehensive Metabolic Panel Urgent
NT-proBNP Urgent
Troponin I Urgent
01/03/25 21:13
Complete Blood Count/With Diff Urgent
01/03/25 21:15
Nitroglycerin 100 mg/250 ml [Nitroglycerin Premix] 100 mg in 250 ml IV PER PROTOCOL
Initial dose in mcg/min, then titrate:: 100
Titrate to keep:: SBP < 160 mmHg
Titrate by mcg/min:: 5 mcg/min, may increase by 10 mcg/min if dose > 20 mcg/min
Frequency of titrations (minutes):: every 3-5 minutes
Maximum dose in mcg/min:: 200
Begin to taper infusion when:: Remained at goal for 2hrs
Taper by mcg/min:: 5 mcg/min
Frequency of taper (minutes) if patient maintains goal:: 30
Taper to off?: Yes
If infusion off & no longer maintaining goal:: Contact Provider
01/03/25 22:56
CR Chest Portable - 1 View Urgent
Comment:
Reason For Exam: SOB
Reason Study Needs to be Portable: Unable to Transport
01/03/25 23:26
Furosemide [Lasix] 40 mg IV ONCE ONE
01/04/25 00:26
Admit/Transfer Patient As Directed
Co-Sign Provider:
Level of Care: Inpatient admission
Assign to:: IVU
Physician / Group: Melva
Diagnosis: CHF exacerbation
Reason for Hospitalization: CHF exacerbation
Expected length of stay greater than two midnights?: Yes
ELOS- Estimated Length of Stay in days: 2
I certify the patient meets the requirements for IP care: Yes
01/04/25 00:27
PRN Pain Medication Management As Directed
May give lesser potent ordered pain med per pt: Yes
preference::
Protocol:: Medication orders for pain may be administered in a
manner that supports deferring to patient preference
when the pt is:
- Requesting an ordered lesser potent pain medication.
Least to most potent pain medications are defined
as: acetaminophen < NSAID < tramadol < opioids
(morphine, oxycodone, hydromorphone).
- Requesting a lesser dose of the same medication IF
ORDERED.
- Requesting a less intrusive route of administration
if both routes are prescribed by the provider (PO <
IV).
01/04/25 00:28
Code Status As Directed
Resuscitation Status: Full Code
01/04/25 03:06
Acetaminophen [Tylenol] 650 mg PO Q6HPRN PRN
Nitroglycerin 100 mg/250 ml [Nitroglycerin Premix] 100 mg in 250 ml IV PER PROTOCOL
Currently infusing. Continue current dose and titrate:: Yes
Titrate to keep:: SBP < 160 mmHg
Titrate by mcg/min:: 5 mcg/min, may increase by 10 mcg/min if dose > 20 mcg/min
Frequency of titrations (minutes):: every 3-5 minutes
Maximum dose in mcg/min:: 200
Begin to taper infusion when:: Remained at goal for 2hrs
Taper by mcg/min:: 5 mcg/min
Frequency of taper (minutes) if patient maintains goal:: 30
Taper to off?: Yes
If infusion off & no longer maintaining goal:: Contact Provider
01/04/25 03:06
CARDIOLOGY CONSULT Routine
Consulting Provider: Kaitlyn Davis
Was physician already notified: No
Reason for consult: CHF exacerbation
HF DIETARY CONSULT Routine
HF EDUCATOR CONSULT Routine
Comment:
VTE Contraindication Routine
VTE Mechanical Device Contraindication: Medical Contraindication
Pharmocologic Contraindication: Medical Contraindication
Activity As Directed
Activity Level: With Assistance
Intake/ Output As Directed
Frequency: Per unit guidelines
Patient Education As Directed
Type: CHF folder
Comment: give on admission. Document in Interdisciplinary Education record
Sleep Apnea Assessment by RN As Directed
Comment:
Physician Instructions:
Vital Signs As Directed
Frequency: Other
Additional Instructions:: Q12 or per unit guidelines if more frequent.
Weight As Directed
Frequency: Daily
Type of Scale: Standing Scale
Comment: Daily morning weight. If unable to stand, use balanced bed scale.
Weight As Directed
Frequency: Once
Type of Scale: Standing Scale
Comment: Upon Admission. If unable to stand, use balanced bed scale.
Pulse Ox/cont/shift [RESP] Routine
Quantity: 1
Special Instructions: Daily pulse oximetry at rest. If greater than 92% at rest also obtain pulse oximetry
while ambulating as tolerated.
01/04/25 05:51
Basic Metabolic Panel IN AM
Magnesium IN AM
01/04/25 Breakfast
Cholesterol Lowering
At Your Request: Full Participation
Cholesterol Lowering: Sodium, 2 Gram
Levothyroxine [Synthroid] 125 mcg PO DAILY @ 0600
01/04/25 06:54
Consult Notification Routine
Specialty to Notify: Cardiology
Date consulting provider notified: 01/04/25
Time consulting provider notified: 07:00
Notified:: Provider
01/04/25 08:00
Apixaban [Eliquis] 5 mg PO BID
Aspirin Low Dose EC [Aspir Low (Enteric Coated)] 81 mg PO DAILY
Escitalopram Oxalate [Lexapro] 10 mg PO DAILY
Ferrous Sulfate [Feosol] 325 mg PO DAILY
Furosemide [Lasix] 40 mg IV BID AT 0800,1600
Lisinopril [Zestril] 10 mg PO DAILY
01/04/25 22:00
Atorvastatin [Lipitor] 80 mg PO HS
Ezetimibe [Zetia] 10 mg PO HS
Melatonin 10 mg PO HS
01/05/25 06:00
Basic Metabolic Panel IN AM
01/06/25 06:00
Basic Metabolic Panel IN AM
Abnormal Lab Results
01/03/25 01/03/25
21:12 21:13
RBC 3.39 L 10^6/uL
(4.20-5.40)
Hgb 10.4 L g/dL
(12.0-16.0)
Hct 31.9 L %
(37.0-47.0)
MCHC 32.6 L g/dL
(33.0-37.0)
Absolute Neuts (auto) 8.2 H 10^3/uL
(1.4-6.5)
Absolute Monos (auto) 0.7 H 10^3/uL
(0.1-0.6)
Neutrophils % 76.3 H %
(42.2-75.2)
Lymphocytes % 13.5 L %
(20.5-51.1)
Chloride 109 H mmol/L
(98-107)
BUN 19 H mg/dl
(7-17)
Creatinine 1.1 H mg/dL
(0.6-1.0)
Glucose 116 H mg/dl
(70-99)
01/03/25 21:13
01/03/25 21:12
Vital Signs
Initial and Last Documented VS:
Initial Vital Signs
Temp Pulse Resp BP Pulse Ox
98.4 F 68 28 194/84 96
01/03/25 20:48 01/03/25 20:48 01/03/25 20:48 01/03/25 20:48 01/03/25 20:48
Last Documented Vital Signs
Temp Pulse Resp BP Pulse Ox
98.3 F 55 16 157/58 96
01/04/25 07:10 01/04/25 08:21 01/04/25 08:21 01/04/25 07:13 01/04/25 08:21
<Mary Shannon MD - Last Filed: 01/04/25 10:47>
Orders/Labs/Results
Orders:
Orders
01/03/25 20:59
Nitroglycerin 100 mg/250 ml [Nitroglycerin Premix] 100 mg in 250 ml .ROUTE .STK-MED
01/03/25 21:11
Electrocardiogram (*1) Urgent
Reason for Study: Other
Other Reason for Exam: Respiratory Distress
Cardiac Monitoring- Treatment ONCE
EKG- Treatment ONCE
O2 Therapy [RESP] Urgent
Titrate/Wean O2 to maintain O2 sat greater than (%): 93
Special Instructions: TO MAINTAIN CONTINUOUS O2 SATS >/= 93%
Pulse Ox/cont/shift [RESP] Urgent
Quantity: 1
Special Instructions: continuous pulse ox
01/03/25 21:12
Comprehensive Metabolic Panel Urgent
NT-proBNP Urgent
Troponin I Urgent
01/03/25 21:13
Complete Blood Count/With Diff Urgent
01/03/25 21:15
Nitroglycerin 100 mg/250 ml [Nitroglycerin Premix] 100 mg in 250 ml IV PER PROTOCOL
Initial dose in mcg/min, then titrate:: 100
Titrate to keep:: SBP < 160 mmHg
Titrate by mcg/min:: 5 mcg/min, may increase by 10 mcg/min if dose > 20 mcg/min
Frequency of titrations (minutes):: every 3-5 minutes
Maximum dose in mcg/min:: 200
Begin to taper infusion when:: Remained at goal for 2hrs
Taper by mcg/min:: 5 mcg/min
Frequency of taper (minutes) if patient maintains goal:: 30
Taper to off?: Yes
If infusion off & no longer maintaining goal:: Contact Provider
01/03/25 22:56
CR Chest Portable - 1 View Urgent
Comment:
Reason For Exam: SOB
Reason Study Needs to be Portable: Unable to Transport
01/03/25 23:26
Furosemide [Lasix] 40 mg IV ONCE ONE
01/04/25 00:26
Admit/Transfer Patient As Directed
Co-Sign Provider:
Level of Care: Inpatient admission
Assign to:: IVU
Physician / Group: Melva
Diagnosis: CHF exacerbation
Reason for Hospitalization: CHF exacerbation
Expected length of stay greater than two midnights?: Yes
ELOS- Estimated Length of Stay in days: 2
I certify the patient meets the requirements for IP care: Yes
01/04/25 00:27
PRN Pain Medication Management As Directed
May give lesser potent ordered pain med per pt: Yes
preference::
Protocol:: Medication orders for pain may be administered in a
manner that supports deferring to patient preference
when the pt is:
- Requesting an ordered lesser potent pain medication.
Least to most potent pain medications are defined
as: acetaminophen < NSAID < tramadol < opioids
(morphine, oxycodone, hydromorphone).
- Requesting a lesser dose of the same medication IF
ORDERED.
- Requesting a less intrusive route of administration
if both routes are prescribed by the provider (PO <
IV).
01/04/25 00:28
Code Status As Directed
Resuscitation Status: Full Code
01/04/25 03:06
Acetaminophen [Tylenol] 650 mg PO Q6HPRN PRN
Nitroglycerin 100 mg/250 ml [Nitroglycerin Premix] 100 mg in 250 ml IV PER PROTOCOL
Currently infusing. Continue current dose and titrate:: Yes
Titrate to keep:: SBP < 160 mmHg
Titrate by mcg/min:: 5 mcg/min, may increase by 10 mcg/min if dose > 20 mcg/min
Frequency of titrations (minutes):: every 3-5 minutes
Maximum dose in mcg/min:: 200
Begin to taper infusion when:: Remained at goal for 2hrs
Taper by mcg/min:: 5 mcg/min
Frequency of taper (minutes) if patient maintains goal:: 30
Taper to off?: Yes
If infusion off & no longer maintaining goal:: Contact Provider
01/04/25 03:06
CARDIOLOGY CONSULT Routine
Consulting Provider: Kaitlyn Davis
Was physician already notified: No
Reason for consult: CHF exacerbation
HF DIETARY CONSULT Routine
HF EDUCATOR CONSULT Routine
Comment:
VTE Contraindication Routine
VTE Mechanical Device Contraindication: Medical Contraindication
Pharmocologic Contraindication: Medical Contraindication
Activity As Directed
Activity Level: With Assistance
Intake/ Output As Directed
Frequency: Per unit guidelines
Patient Education As Directed
Type: CHF folder
Comment: give on admission. Document in Interdisciplinary Education record
Sleep Apnea Assessment by RN As Directed
Comment:
Physician Instructions:
Vital Signs As Directed
Frequency: Other
Additional Instructions:: Q12 or per unit guidelines if more frequent.
Weight As Directed
Frequency: Daily
Type of Scale: Standing Scale
Comment: Daily morning weight. If unable to stand, use balanced bed scale.
Weight As Directed
Frequency: Once
Type of Scale: Standing Scale
Comment: Upon Admission. If unable to stand, use balanced bed scale.
Pulse Ox/cont/shift [RESP] Routine
Quantity: 1
Special Instructions: Daily pulse oximetry at rest. If greater than 92% at rest also obtain pulse oximetry
while ambulating as tolerated.
01/04/25 05:51
Basic Metabolic Panel IN AM
Magnesium IN AM
01/04/25 Breakfast
Cholesterol Lowering
At Your Request: Full Participation
Cholesterol Lowering: Sodium, 2 Gram
Levothyroxine [Synthroid] 125 mcg PO DAILY @ 0600
01/04/25 06:54
Consult Notification Routine
Specialty to Notify: Cardiology
Date consulting provider notified: 01/04/25
Time consulting provider notified: 07:00
Notified:: Provider
01/04/25 08:00
Apixaban [Eliquis] 5 mg PO BID
Aspirin Low Dose EC [Aspir Low (Enteric Coated)] 81 mg PO DAILY
Escitalopram Oxalate [Lexapro] 10 mg PO DAILY
Ferrous Sulfate [Feosol] 325 mg PO DAILY
Furosemide [Lasix] 40 mg IV BID AT 0800,1600
Lisinopril [Zestril] 10 mg PO DAILY
01/04/25 22:00
Atorvastatin [Lipitor] 80 mg PO HS
Ezetimibe [Zetia] 10 mg PO HS
Melatonin 10 mg PO HS
01/05/25 06:00
Basic Metabolic Panel IN AM
01/06/25 06:00
Basic Metabolic Panel IN AM
Abnormal Lab Results
01/03/25 01/03/25
21:12 21:13
RBC 3.39 L 10^6/uL
(4.20-5.40)
Hgb 10.4 L g/dL
(12.0-16.0)
Hct 31.9 L %
(37.0-47.0)
MCHC 32.6 L g/dL
(33.0-37.0)
Absolute Neuts (auto) 8.2 H 10^3/uL
(1.4-6.5)
Absolute Monos (auto) 0.7 H 10^3/uL
(0.1-0.6)
Neutrophils % 76.3 H %
(42.2-75.2)
Lymphocytes % 13.5 L %
(20.5-51.1)
Chloride 109 H mmol/L
(98-107)
BUN 19 H mg/dl
(7-17)
Creatinine 1.1 H mg/dL
(0.6-1.0)
Glucose 116 H mg/dl
(70-99)
01/03/25 21:13
01/03/25 21:12
Vital Signs
Initial and Last Documented VS:
Initial Vital Signs
Temp Pulse Resp BP Pulse Ox
98.4 F 68 28 194/84 96
01/03/25 20:48 01/03/25 20:48 01/03/25 20:48 01/03/25 20:48 01/03/25 20:48
Last Documented Vital Signs
Temp Pulse Resp BP Pulse Ox
98.3 F 55 16 157/58 96
01/04/25 07:10 01/04/25 08:21 01/04/25 08:21 01/04/25 07:13 01/04/25 08:21
<Zachayr Celis PA-C - Last Filed: 01/04/25 02:30>
MDM/Problems Addressed
MDM/Problems Addressed:
On arrival patient was stable on a nitroglycerin drip and supplemental oxygen, workup is consistent with acute CHF evidenced by pulmonary edema on chest x-ray and elevated proBNP. Gradually weaning down oxygen and nitro drip in the ED nevertheless
will admit to the hospitalist service for further management
<Zachary Celis PA-C - Last Filed: 01/04/25 02:30>
*Pulse Oximetry
SaO2: 96
Nasal Cannula flow liters per minute: 6
Patient hypoxic: no
*Critical Care Note
Total Time (30-74mins, 75-104mins- exclusive of procedures): Not Applicable
<Zachary Celis PA-C - Last Filed: 01/04/25 02:30>
Update Note
Update Note:
2317: Pt remains stable, weaned O2 down to 2L, nitro to 80
ED Attending Note
<Zachary Celis PA-C - Last Filed: 01/04/25 02:30>
-
Portions of this chart may have been created with voice recognition software.� Occasional wrong word or��sound alike� substitutions may have occurred due to the inherent limitations of voice recognition software.
<Mary Shannon MD - Last Filed: 01/04/25 10:47>
ED Attending Note
Patient seen and examined by attending physician: Yes
I performed the substantive portion of visit, reviewed & personally made and approve the management plan that is documented in note by myself or WINSTON.: Yes
ED Attending Note:
(Case d/w EMS upon pt arrival, had recent CEA scheduled that was cancelled...presented with sob, noted to be hypoxic upon their arrival, did not tolerate bipap. They began nitro gtt given basilar rales, sob with noted improvement of hypoxia and
resp status. Here in ED, pt with oxygen in place -nc- I instructed RN to continue nitro gtt Lungs with bibasilar rales. PT a wake and alert.)
Discharge Plan
Departure
Patient Disposition: Admit
Date of Disposition: 01/03/25
Time of Disposition: 23:33
Admit to: Med/Surg
Presentation/result/management discussed w/ accepting MD/DO: Hospitalist
Discharge Problem:
Acute heart failure with preserved ejection fraction (HFpEF), Acute hypoxemic respiratory failure
Interventions
Interventions:
*Risk Screen - Suicide Last Done: 01/03/25 20:48
*General Assessment Last Done: 01/03/25 20:48
*Neglect/Abuse Screening Last Done: 01/03/25 20:48
*ED- Fall Risk Assessment Last Done: 01/03/25 20:48
*ED COVID-19 Vaccine History Last Done: 01/04/25 03:14
*Nursing Disposition Last Done: 01/04/25 03:25
ED- Cardiac Assessment Last Done: 01/03/25 21:30
ED- Pulmonary Assessment Last Done: 01/03/25 21:30
Discharge Date and Time
Discharge Date/Time: 01/04/25 03:26
[2025-01-04] VITALS (16 sets, daily range): BP systolic 95–172; BP diastolic 43–63; BMI 27.4
--- NOTE | 2025-01-04 00:06 | HPS.HSE ---
Family Physician
-
Family Physician: Sari Maynard, DO
Chief Complaint
-
Shortness of breath
History of Present Illness
This is a 79-year-old female with past medical history significant for CHF with preserved EF, atrial fibrillation status post cardioversion and on anticoagulation, CKD stage III, CAD status post PCI, type 2 diabetes, carotid stenosis pending carotid
endarterectomy, hypertension and COPD presents to the emergency department with acute onset of shortness of breath. Similar presentation during her last admission 1 month ago when she was admitted with acute shortness of breath and found to be in
acute pulmonary edema treated with diuresis and had marked improvement.
Patient reports sudden onset of shortness of breath. She stated that around the time she had a brief episode of shortness of breath lasting a few seconds and then resolving. Did not think much of it. Then later on after dinner she was sitting and
watching TV and then had again shortness of breath that came on all of a sudden. There was no associated chest pain. She denies any palpitation. She denies any nausea vomiting or diaphoresis.
Patient denies any recent cough cold flulike symptoms. She denies having any wheezing. She states that weight has been around 164 pounds and has been steady. She denies any recent dietary indiscretions. She reports history of lower extremity
swelling left greater than right but that has not changed recently.
She was off Eliquis for 4 days pending left carotid endarterectomy which has now been postponed and patient has now restarted the Eliquis yesterday.
She called EMS due to shortness of breath and was found to be hypoxic to 80%. She was initially placed on BiPAP which she did not tolerate. She was given nitroglycerin drip and also Levophed to support her blood pressure. She was then placed on 6
L of oxygen. By the time she arrived in the emergency department she appeared much more improved.
In the emergency department she was afebrile, blood pressure was 128/47 with a pulse of 63 and she was satting 95%. Chest x-ray shows mild pulmonary edema. ECG shows sinus bradycardia rate of [address] or T wave changes.
Troponin was 0.012. BNP was 3600. CBC was unremarkable. Electrolytes BUN/creatinine were normal.
Medical History
Past Medical History
Past Medical History: Reports Other
Additional Past Medical History:
ASCVD
Chronic HFpEF
Atrial Fibrillation
Hypertension
DM-II
Hypothyroidism
Colon Polyp
Obesity
Past Surgical History: Reports Other
Additional Past Surgical History:
Partial Colectomy (08/02/24 - [facility])
PTCA with Stents
Right TKA
Right CEA
Left Tibia Bone Grafting
DCCV
Social History
Tobacco: Former Smoker (Quit smoking 2 years ago. > 50 pack years total use.)
Alcohol: Occasional
Drug: None
Family History
Family History: Not pertinent
Allergies / Home Medications
Allergies reflects when Allergies were last updated in [employer].
Home Medications with original date entered in [employer]
Allergy/Medication List:
Allergies
Allergy/AdvReac Type Severity Reaction Status Date / Time
No Known Allergies Allergy Verified 11/28/24 17:51
Home Medications
atorvastatin 80 mg tablet 80 mg PO HS High Cholesterol 08/11/24
cholecalciferol (vitamin D3) 50 mcg (2,000 unit) tablet (Vitamin D3) 50 mcg PO DAILY Supplement 08/11/24
cyanocobalamin (vitamin B-12) 1,000 mcg tablet 1,000 mcg PO DAILY Supplement 08/11/24
escitalopram oxalate 10 mg tablet (Lexapro) 10 mg PO DAILY Depression 08/11/24
ezetimibe 10 mg tablet (Zetia) 10 mg PO HS High Cholesterol 08/11/24
lisinopril 10 mg tablet 10 mg PO DAILY Blood Pressure 08/11/24
metformin 500 mg tablet 500 mg PO DAILY Diabetes 08/11/24
aspirin 81 mg tablet,delayed release 81 mg PO DAILY #30 tabs 08/19/24
ferrous sulfate 325 mg (65 mg iron) tablet (iron) 325 mg PO DAILY 10/30/24
levothyroxine 150 mcg tablet 150 mcg PO DAILY 10/30/24
umeclidinium 62.5 mcg-vilanterol 25 mcg/actuation powdr for inhalation (Anoro Ellipta) 1 inh inhalation R DAILY 10/30/24
apixaban 5 mg tablet (Eliquis) 5 mg PO BID 11/28/24
furosemide 20 mg tablet 20 mg PO DAILY 11/28/24
melatonin 5 mg chewable tablet 10 mg PO HS 11/28/24
Review of Systems
-
History Source: Patient
A 12 point ROS was completed and negative except as noted: Yes
Constitutional: Denies Fever or Chills
Respiratory: Reports Cough (chronic / unchanged per patient.) and Trouble Breathing
Cardiac: Denies Chest Pain or Palpitations
Abdomen/GI: Denies Abdominal Pain, Nausea, Vomiting or Diarrhea
: Denies Dysuria or Frequency
Musculoskeletal: Reports Edema; Denies Joint Pain
Neurological: Denies Dizzy or Headache
Physical Exam
Vital Signs
Vital Signs
Temp Pulse Resp BP Pulse Ox
98.4 F 63 19 128/47 95
01/03/25 20:48 01/03/25 23:30 01/03/25 23:30 01/03/25 23:30 01/03/25 23:15
Physical Exam
General: No Apparent Distress
HEENT: Moist mucous membranes, PERRLA and Oxygen
Respiratory: Crackles (faint basilar crackles); No Wheezes or Rhonchi
Cardiac: S1/S2, Regular Rhythm and Murmur (II/ MARQUEZ); No JVD
GI: Soft, Non Tender, Non Distended, Normal Bowel Sounds and Other (Port sites healing well. Scattered ecchymosis. No tenderness.)
Musculoskeletal: No Clubbing, No Cyanosis and Edema, Left Lower Extremity (trace le edema)
Neuro: AO x 3 and Nonfocal/grossly intact
Psych: Calm
Laboratory Results
-
01/03/25 21:13
01/03/25 21:12
Laboratory Results
Total Bilirubin 0.8 mg/dl (0.2-1.3) 01/03/25 21:12
AST 25 U/L (14-36) 01/03/25 21:12
ALT 21 U/L (0-35) 01/03/25 21:12
Alkaline Phosphatase 66 U/L (38-126) 01/03/25 21:12
Troponin I < 0.012 ng/ml 01/03/25 21:12
Data Reviewed
-
Diagnostic Radiology: Image Personally Visualized and interpreted and Report Reviewed by me
Medical Tests (Nuc Med, Echo, EKG etc): Image Personally Visualized and interpreted
Lab Data: Labs Reviewed by me
Old Records: Reviewed
Impression/Plan
-
IMPRESSION:
79-year-old female with past medical history of CHF with preserved EF, CAD and hypertension as well as atrial fibrillation on anticoagulation, COPD not on home O2 who presents to the Emergency Department with very acute onset shortness of breath
that started essentially this evening and found to be hypoxic by EMS. She improved rather rapidly after placement on nitroglycerin. Chest x-ray shows pulmonary edema which is mild. BNP is elevated at 3600 which is similar to prior. ECG is
without ischemia. Troponin is negative. On exam she has some mild crackles and no wheezes. She has no increased work of breathing. She is currently normotensive on the nitroglycerin drip and in no acute distress. Suspect flash pulmonary edema
similar to her prior presentation but no obvious triggers at this time as patient has been compliant with her medications and denies any recent salt load. She has no signs of an acute infection.
PLAN:
CHF exacerbation -suspect episode of flash pulmonary edema. No known history of coronary stenosis or renal artery stenosis
-Admit to IVU
-Titrate nitroglycerin to SBP less than 140
-Lasix 40 mg IV every 12
-Hold off on repeat echocardiogram for now
-Salt restriction
-Daily weights and ins and out
-Repeat troponin
-Cardiology consult
Atrial fibrillation - rate controlled, sinus rhythm
- Continue Eliquis 5 twice daily
- Status post cardioversion, not currently on rate agent
COPD
- No wheezing or coug, no acute exacerbation evident
- continue her usual inhalers
DM II
- continue metformin 500 daily
- sliding scale insulin
Hypothyroid
- continue levothyroxine 125 daily
DVT PPX - on apixaban
code status - full code
[2025-01-04] MEDS: LASIX 40 MG IV ×3 (00:20→16:44)
--- NOTE | 2025-01-04 03:31 | PTCARENOTE ---
Addendum entered by Artemio Ruiz RN 01/04/25 03:47:
sp02 dropping into the 80s while sleeping. placed patient back on 2L NC- 93%.
Original Note:
received the patient from the ED. AAOx3. patient states feeling much better. denies any sob at this time. 93% on RA. SB/SR on tele 50s-60s. nitro gtt infusing per protocol for blood pressure control. tapered per order. reviewed plan of care with
patient and verbalized understanding. refused CHF book at this time- has one at home. reviewed highlights-verbalized understanding. call serra within reach. makes needs known.
[2025-01-04 06:24] LABS: Blood Urea Nitrogen 21 mg/dl (7-17); Calcium 8.6 mg/dl (8.4-10.2); Carbon Dioxide 28 mmol/L (22-30); Chloride 108 mmol/L (98-107); Estimated Creatinine Clearance 48 ml/min; Glucose 93 mg/dl (70-99); Magnesium 2.1 mg/dl (1.6-2.3); Potassium 4.5 mmol/L (3.5-5.1); Sodium 139 mmol/L (135-145); eGFR 58.02
[2025-01-04] MEDS: SYNTHROID 125 MCG PO (07:09)
--- NOTE | 2025-01-04 07:59 | W.PN.HOSP.TC ---
Today's Communication/Plan
-
IV Lasix
Assessment / Plan
Assessment / Plan
Physical exam:
General: Well Developed, Well Nourished and No Apparent Distress
HEENT: Normocephalic, Atraumatic and Moist Mucous Membranes
Respiratory: Clear to Auscultation; Negative Wheezes, Rales or Rhonchi
Cardiac: Regular Rhythm and S1/S2
GI: Soft, Nontender and Nondistended
Musculoskeletal: No Clubbing, No Cyanosis and No Edema
Neuro: Awake, Alert and Oriented, no neurological deficits
Psych: Calm
A/P:
Acute diastolic congestive heart failure with pulmonary edema:
Continue IV Lasix 40 mg twice a day
On IV nitroglycerin drip
Continue daily weights and ins and out
Cardiology consult appreciated
GDMT--> continue TJ inhibitor, not on Beta-blane due to bradycardia
Acute respiratory insufficiency:
On oxygen supplementation and BiPAP but off both now
Monitor respiratory status closely
Paroxysmal atrial fibrillation:
Successful cardioversion on August of this year
Not on rate control or antiarrhythmic due to side effects
On anticoagulation, Eliquis 5 mg twice a day
Continue cardiac monitoring
Hypertension:
Continue antihypertensives
Hyperlipidemia:
Continue home statins and Zetia
Hypothyroidism:
Continue levothyroxine 125 mcg daily
Diabetes mellitus:
Start insulin sliding scale this morning
Peripheral vascular disease:
Plan for TCAR by vascular coming January
COPD:
Continue Spiriva
Add bronchodilators as needed
Depression:
Continue antidepressant
DVT prophylaxis:
Eliquis
CODE STATUS:
Full code
Total time spent on today's encounter was 35 minutes which included time spent in counseling the patient/family regarding diagnosis and treatment plan as listed above, goals of care, and symptom management. Case was discussed with nursing staff,
specialists, and care coordinators/case management. All labs and imaging personally reviewed by me. Remainder the time spent in detailed review of previous records, lab data, imaging, and other medical provider documentation.
Anticipated Discharge: > 48 hours
Subjective/Interval History
-
Date of Service: January 04, 2025
Patient feels better today, less shortness of breath, no chest pain.
Objective Data
-
Labs:
Laboratory Results
01/03/25 01/03/25 01/04/25
21:12 21:13 05:51
WBC 10.7
Hgb 10.4 L
Hct 31.9 L
Plt Count 327
Sodium 141 139
Potassium 4.8 4.5
Chloride 109 H 108 H
Carbon Dioxide 27 28
BUN 19 H 21 H
Creatinine 1.1 H 1.0
Glucose 116 H 93
Calcium 8.4 8.6
Total Bilirubin 0.8
AST 25
ALT 21
Alkaline Phosphatase 66
Vital Signs:
Vital Signs
Temp Pulse Resp BP Pulse Ox
98.3 F 69 15 157/58 93
01/04/25 07:10 01/04/25 07:30 01/04/25 07:10 01/04/25 07:13 01/04/25 07:10
I&O
01/03/25 01/04/25 01/05/25
06:59 06:59 06:59
Intake Total 150 / 150
Output Total 600 / 600
Balance -450 / -450
[2025-01-04] MEDS: SPIRIVA RESPIMAT 2.5 MCG 2 PUFF INH (08:17)
[2025-01-04] MEDS: STRIVERDI RESPIMAT 2 PUFF INH (08:17)
--- NOTE | 2025-01-04 08:20 | CON.CAR ---
Addendum entered and electronically signed by Fernando Rodriguez MD 01/04/25 12:41:
79-year-old woman admitted with acute heart failure presumably with preserved EF. Recently hospitalized with heart failure in November, proBNP 6610. Recently postponed left TCAR
PMH: CAD, bare-metal stent to OM1 2000, D1 in 2022, paroxysmal atrial fibrillation with DEWAYNE cardioversion August 2024, HFpEF, mild to moderate mitral regurgitation, cerebrovascular disease with right carotid endarterectomy, hypertension,
hyperlipidemia, type 2 diabetes, hypothyroidism, obesity, hemicolectomy July 2024 for polyp
PSH: Hemicolectomy 2024, right knee replacement, left tibial fracture, right carotid endarterectomy
Allergies: Amiodarone: Tremor
Current medications: Apixaban 5 mg twice daily, aspirin 81 mg a day, atorvastatin 80 mg daily, Lexapro 10 mg daily, Zetia 10 mg daily, iron sulfate 325 mg daily, lisinopril 10 mg daily, IV nitroglycerin, furosemide 40 mg IV twice daily, Spiriva,
Striverdi, levothyroxine, insulin
157/58, pulse 61, respiratory rate 14, weight is 74.8 kg, if accurate down 3.4 kg, pleasant, no acute distress, head neck exam unremarkable, lungs are relatively clear rare crackles in bases soft MR murmur
Echo August 2024: EF 70%, mildly dilated left atrium, mild to moderate mitral stenosis, mean gradient 7, mild to moderate MR, mild to moderate TR pulmonary artery systolic pressure 50-55 mmHg
Cardiac catheterization 2022: Report not currently available
Chest x-ray vascular congestion
ECG sinus rhythm, nonspecific ST changes
Hemoglobin 10.4, platelets 327, BUN/creatinine 21 and 1.0, potassium 4.5, proBNP is 3660, troponin is undetectable. Creatinine had been as high as 1.3 in hospital, and may have been as high as 1.6.
Impression:
Recurrent acute on chronic HFpEF
Mitral regurgitation with mild mitral stenosis
CAD with PCI to diagonal 2022, obtuse marginal in 2020
Status post right CEA, for left carotid TCAR January 15
Paroxysmal A-fib, intolerant of amiodarone, cardioversion August 2024 Hemicolectomy for polyp July 2024
Hypertension, hyperlipidemia, type 2 diabetes, COPD, depression
Plan:
Overall, she looks well but has had recurrent heart failure admissions.
Volume status is now improved. Will resume oral furosemide in a.m.
She has a history of elevated creatinine but currently creatinine is normal.
Mention has been made of SGLT2 antagonist, will ask case management to weiner and will start Farxiga 10 mg daily.
Thereafter, would likely add spironolactone at low-dose.
Will need to review her prior cath film. May need to consider stress testing to exclude underlying CAD as cause of exacerbations of CHF. Mitral regurgitation may also be a contributor.
May also need to consider secondary causes of hypertension.
Will reassess in AM.
Original Note:
Consultation
Consultation Request
Date/Time Consultation Requested: 01/04/2025
Date/Time Consultation Performed: 01/04/2025
Requesting Provider: Dr. Frye
Performing Provider: Rosaline Moe PA-C for Dr. Fernando Rodriguez
Reason for Consultation: Acute shortness of breath, pulmonary edema
Medical History
-
History of Present Illness:
Patient is a 79-year-old female with past medical history significant for coronary artery disease status post TOSIN x 2 (OM1 2000, D1 05/2022), paroxysmal atrial fibrillation, chronic anticoagulation on Eliquis, heart failure with preserved ejection
fraction, mitral stenosis/regurgitation, pulmonary hypertension, PAD, bilateral carotid artery stenosis remote right endarterectomy, hypertension, hyperlipidemia, type 2 diabetes, hypothyroidism, obesity, vertigo and anemia due to colon mass s/p
hemicolectomy 08/02/2024 ([facility]). She was hospitalized late November 2024 with acute heart failure exacerbation with proBNP of 6610 at that time. She admitted to dietary indiscretion. Patient reports she was scheduled for left carotid endarterectomy on
01/02/[address] Davila however procedure was canceled as she had only held Plavix for 2 days. Patient reports she was very upset about procedure being rescheduled and went out to breakfast and had eggs and scrapple. On the evening of 01/02/2025 she
reports she had acute onset of shortness of breath at dinner which lasted a brief time. She then had another episode several hours later while watching TV and called 911. She was found to be hypoxic by EMS with pulse oximetry of 80%. She was
initially placed on BiPAP but did not tolerate and was given nitroglycerin drip and supplemental oxygen. Blood pressure was 194/84 on arrival. proBNP was found to be elevated at 3660. Chest x-ray showed pulmonary edema. Patient was provided IV
Lasix 40 mg with significant improvement of symptoms. Patient reports good diuretic response overnight. At time of this evaluation patient resting comfortably in bed on room air and denies chest pain, shortness of breath, dizziness or
lightheadedness.
PMH:
Recent admission for acute HFpEF 11/28/2024 until 11/30/2024
Chronic HFpEF
EF 55 to 60% by DEWAYNE 08/19/2024
Paroxysmal A-fib
s/p successful DEWAYNE/CV 08/19/2024
Previously managed with amiodarone, but stopped due to tremors 10/2024
Chronic Eliquis OAC
Colon polyp with recent resection/colectomy 08/02/2024 ([facility])
Coronary artery disease
s/p OM1 TOSIN 2000
s/p D1 TOSIN in May 2022 ([facility])
Hypertension
Hyperlipidemia
Type 2 diabetes
Mild to moderate mitral regurgitation by DEWAYNE 08/19/2024
Hypothyroidism
Obesity
Vertigo
PAD/right carotid surgery, CTA head and neck May 2024 greater than 80% LICA stenosis
Scheduled for TCAR with Dr. Davila 01/15/2025
Past Medical History
Past Medical History: Other (See HPI)
Past Surgical History: Bowel Resection (08/02/2024 a TONI), Cardiac (Drug-eluting stent May 2022), Orthopedic (Right knee replacement, left tibial fracture with surgery) and Other (Right carotid endarterectomy)
Social History
Tobacco: Former Smoker (Quit 2022)
Alcohol: Occasional
Drug: None
Personal:
Living: With Family (Niece)
Family History
Family History: CAD (Brother suddenly in his 60s while playing tennis)
Allergies / Home Medications
Allergy/AdvReac Type Severity Reaction Status Date / Time
No Known Allergies Allergy Verified 01/03/25 20:47
�Medication �Instructions �Recorded �Confirmed �Type
atorvastatin 80 mg tablet 80 mg PO HS High Cholesterol 08/11/24 12/25/24 History
cholecalciferol (vitamin D3) 50 50 mcg PO DAILY Supplement 08/11/24 12/25/24 History
mcg (2,000 unit) tablet (Vitamin
D3)
cyanocobalamin (vitamin B-12) 1,000 mcg PO DAILY Supplement 08/11/24 12/25/24 History
1,000 mcg tablet
escitalopram oxalate 10 mg tablet 10 mg PO DAILY Depression 08/11/24 12/25/24 History
(Lexapro)
ezetimibe 10 mg tablet (Zetia) 10 mg PO HS High Cholesterol 08/11/24 12/25/24 History
lisinopril 10 mg tablet 10 mg PO DAILY Blood Pressure 08/11/24 12/25/24 History
aspirin 81 mg tablet,delayed 81 mg PO DAILY #30 tabs 08/19/24 12/25/24 Rx
release
ferrous sulfate 325 mg (65 mg 325 mg PO DAILY Supplement 10/30/24 12/25/24 History
iron) tablet (iron)
umeclidinium 62.5 mcg-vilanterol 1 inh inhalation R DAILY 10/30/24 12/25/24 History
25 mcg/actuation powdr for Lung/Breathing Issues
inhalation (Anoro Ellipta)
apixaban 5 mg tablet (Eliquis) 5 mg PO BID Blood Clot 11/28/24 12/25/24 History
Prevention/Tx
melatonin 5 mg chewable tablet 10 mg PO HS Sleep 11/28/24 12/25/24 History
furosemide 40 mg tablet (Lasix) 40 mg PO DAILY Heart Failure #30 11/30/24 12/25/24 Rx
tabs
levothyroxine 150 mcg tablet 150 mcg PO DAILY 12/25/24 12/25/24 History
Review of Systems
-
History Source: Patient
All other systems: Negative unless noted
Physical Exam
Vital Signs
Temp Pulse Resp BP Pulse Ox
98.3 F 69 15 157/58 93
01/04/25 07:10 01/04/25 07:30 01/04/25 07:10 01/04/25 07:13 01/04/25 07:10
GEN: No distress, awake, Ox3, sitting in bed on room air
HEENT: supple, anicteric, mmm
LUNGS: CTA, no wheezes/rales
CV: Reg, S1/S2, 1/6 syst murmur, no rub or gallop
ABD: soft, BS+, NT/ND
EXT: No edema, clubbing or cyanosis
NEURO: Gross non-focal
SKIN: No rash, warm, dry, pink
Lab Results
01/03/25 21:13
01/04/25 05:51
Troponin I < 0.012 ng/ml 01/03/25 21:12
Jhu-A-Ezdvvvesudn Pept 3660 pg/ml 01/03/25 21:12
Impression / Plan
-
PCP: Sari Maynard
Pattern Grader:Dr. Lois Truong
Impression:
Presented 01/03/2025 with acute shortness of breath, hypoxia likely secondary to dietary indiscretion
Acute HFpEF proBNP 3660
Pulmonary edema on chest x-ray
Recent admission for acute HFpEF 11/30/2024 until 11/30/2024
EF 55 to 60% by DEWAYNE 08/19/2024
Paroxysmal A-fib
s/p successful DEWAYNE/CV 08/19/2024
Previously managed with amiodarone, but stopped due to tremors 10/2024
Chronic Eliquis OAC
Colon polyp with recent resection/colectomy 08/02/2024 ([facility])
Coronary artery disease
s/p OM1 TOSIN 2000
s/p D1 TOSIN in May 2022 ([facility])
Hypertension
Hyperlipidemia
Type 2 diabetes
Mild to moderate mitral regurgitation by DEWAYNE 08/19/2024
Hypothyroidism
Obesity
Vertigo
PAD/right carotid surgery, CTA head and neck May 2024 greater than 80% LICA stenosis
Scheduled for TCAR with Dr. Davila 01/02/2025
Echo 07/24/[address] [facility]: EF 65 to 70% moderate left atrial dilation. Aortic sclerosis without stenosis. Severe MAC with moderate mitral regurgitation, mild TR, PAP 33 mmHg
ECHO 08/13/24: EF 70%, no regional wall motion abnormalities noted, mildly dilated LA, mild to moderate MS with mean gradient 7 mmHg, mild to moderate MR, mild to moderate TR, moderate to severe pulmonary hypertension with PAP 50 to 55 mmHg
DEWAYNE 08/19/24: EF 55 to 60%, no HECTOR thrombus, mild to moderate MR, mild to moderate TR
Plan:
-Presented 01/03/2025 with acute shortness of breath, hypoxia likely secondary to dietary indiscretion. Found to be in acute HFpEF proBNP 3660 and pulmonary edema on chest x-ray
-Patient reports good response to IV Lasix 40 mg in emergency department. Currently denies shortness of breath or chest pain
-Initially required BiPAP, now weaned off oxygen with SpO2 94 to 96% on room air
-ECG and telemetry reviewed by me show sinus rhythm/sinus bradycardia without ischemic changes. Troponin negative
-Patient weight at 164 lb which she reports is baseline.
-Would give additional 40 mg IV Lasix this a.m. Patient was taking Lasix 40 mg daily as outpatient
-Encourage patient to ambulate around the unit to see if she is dyspneic on exertion.
-Heart failure education, reviewed importance of sodium restriction and adhering to less than 2 g
-Cre was 1.1 on admission, repeat 1.0.
-EF preserved at 55 to 60% by DEWAYNE 08/19/2024.
-Weaned off IV nitro drip. Continue to monitor and trend blood pressure has been somewhat labile.
-Continue lisinopril 10 mg. Continue to monitor and trend blood pressure. If blood pressure remains poorly controlled could consider up titration or addition of Aldactone
-Patient is not chronically on BB due to sinus bradycardia with average heart rate 50 by outpatient monitor 10/2024
-Patient is not chronically on an SGLT2 inhibitor due to intermittent procedures and risk for infection, we will address this as an outpatient once she has recovered from her upcoming TCAR now scheduled on 01/15/[address] Davila
- History of atrial fibrillation. Remains in SR by ECG and telemetry reviewed by me. Outpatient dose of amiodarone stopped 10/2024 due to tremor and sinus bradycardia on monitor 10/2024.
- Continue Eliquis 5 mg BID (age 79, Cre 1.0)
-Patient with known CAD and last stent was 05/2022. Outpatient dose of aspirin 81 mg daily, high-dose atorvastatin and should be continued. Troponin negative this admission and EKG with nonischemic changes
Data Reviewed
-
EKG: Report Reviewed by me, Discussed with Physician, Discussed with Nurse and Discussed with Patient
Radiology: Report Reviewed by me, Discussed with Physician, Discussed with Nurse and Discussed with Patient
Labs: Labs Reviewed by me, Discussed with Physician, Discussed with Nurse and Discussed with Patient
Old Records: Reviewed
[2025-01-04] MEDS: LEXAPRO 10 MG PO (08:32)
[2025-01-04] MEDS: ASPIR LOW (ENTERIC COATED) 81 MG PO (08:32)
[2025-01-04] MEDS: ELIQUIS 5 MG PO ×2 (08:32→20:14)
[2025-01-04] MEDS: ZESTRIL 10 MG PO (08:32)
[2025-01-04] MEDS: FEOSOL 325 MG PO (08:33)
--- NOTE | 2025-01-04 09:06 | PTCARENOTE ---
Pt feeling 'much better ' today. She is ambulating in room, denies pain and SOB.
[2025-01-04 13:41] LABS: Glucose - Point of Care 113 mg/dl (70-99)
[2025-01-04] MEDS: FARXIGA 10 MG PO (14:24)
--- NOTE | 2025-01-04 15:13 | CM ---
Priced glenroy at [facility], her copay is zero dollars/mo. however, it will nto be in stock until . due to labor day holiday. will let know,
[2025-01-04 17:20] LABS: Glucose - Point of Care 115 mg/dl (70-99)
--- NOTE | 2025-01-04 21:41 | PTCARENOTE ---
Pt rec'd at change of shift with pt in bed watching J[employer]. No complaints. Lungs clear, Sat on R/A 93%. pt reports no complaints of sob at this time. Urine emptied from collection container for 1000 cc.
[2025-01-04] MEDS: MELATONIN 10 MG PO (22:21)
[2025-01-04] MEDS: ZETIA 10 MG PO (22:22)
[2025-01-04] MEDS: LIPITOR 80 MG PO (22:22)
[2025-01-04 22:46] LABS: Glucose - Point of Care 132 mg/dl (70-99)
[2025-01-05 04:21] VITALS: BMI 26.7
[2025-01-05 04:24] VITALS: BP 123/47
[2025-01-05] MEDS: SYNTHROID 125 MCG PO (04:40)
[2025-01-05 05:14] LABS: Hematocrit 30.8 % (37.0-47.0); Hemoglobin 10.1 g/dL (12.0-16.0); Mean Corp Hgb Conc. 32.8 g/dL (33.0-37.0); Mean Corpuscular Volume 92.2 fL (81.0-99.0); Platelet Count 287 10^3/uL (130-400); Red Cell Dist. Width 14.0 % (11.5-14.5)
[2025-01-05 05:36] LABS: Blood Urea Nitrogen 25 mg/dl (7-17); Calcium 8.5 mg/dl (8.4-10.2); Carbon Dioxide 31 mmol/L (22-30); Chloride 104 mmol/L (98-107); Estimated Creatinine Clearance 28 ml/min; Glucose 100 mg/dl (70-99); Potassium 4.2 mmol/L (3.5-5.1); Sodium 140 mmol/L (135-145); eGFR 35.67
[2025-01-05 05:45] LABS: Magnesium 2.3 mg/dl (1.6-2.3)
[2025-01-05 06:59] VITALS: BP 119/49
[2025-01-05 08:05] LABS: Glucose - Point of Care 111 mg/dl (70-99)
[2025-01-05 08:17] LABS: Glycohemoglobin (HgbA1c) 5.1 % (4.0-5.6)
[2025-01-05] MEDS: SPIRIVA RESPIMAT 2.5 MCG 2 PUFF INH (08:19)
[2025-01-05] MEDS: STRIVERDI RESPIMAT 2 PUFF INH (08:19)
[2025-01-05] MEDS: FARXIGA 10 MG PO (08:27)
[2025-01-05] MEDS: ASPIR LOW (ENTERIC COATED) 81 MG PO (08:27)
[2025-01-05] MEDS: LEXAPRO 10 MG PO (08:28)
[2025-01-05] MEDS: ELIQUIS 5 MG PO ×2 (08:28→19:26)
[2025-01-05] MEDS: FEOSOL 325 MG PO (08:30)
--- NOTE | 2025-01-05 08:51 | W.PN.HOSP.TC ---
Today's Communication/Plan
-
Diuresis. Monitor renal function.
Assessment / Plan
Assessment / Plan
Physical exam:
General: Well Developed, Well Nourished and No Apparent Distress
HEENT: Normocephalic, Atraumatic and Moist Mucous Membranes
Respiratory: Clear to Auscultation; Negative Wheezes, Rales or Rhonchi
Cardiac: Regular Rhythm and S1/S2
GI: Soft, Nontender and Nondistended
Musculoskeletal: No Clubbing, No Cyanosis and No Edema
Neuro: Awake, Alert and Oriented, no neurological deficits
Psych: Calm
A/P:
Acute diastolic congestive heart failure with pulmonary edema:
Continue IV Lasix 40 mg twice a day--> switch to oral Lasix 40 mg p.o. daily
Off IV nitroglycerin drip today
Continue daily weights and ins and out
Cardiology consult appreciated
GDMT--> On TJ inhibitor (hold due to GARRETT and reevaluate tomorrow), not on Beta-blane due to bradycardia; started on Farxiga 10 mg p.o. daily and spironolactone 12.5 mg p.o. daily.
GARRETT:
Creatinine 1.5 today
Baseline creatinine at least yesterday was 1.0
Avoid nephrotoxic
Monitor renal function in a.m.
Acute respiratory insufficiency:
On oxygen supplementation and BiPAP but off both now
Monitor respiratory status closely
Paroxysmal atrial fibrillation:
Successful cardioversion on August of this year
Not on rate control or antiarrhythmic due to side effects
On anticoagulation, Eliquis 5 mg twice a day
Continue cardiac monitoring
Hypertension:
Continue antihypertensives
Hyperlipidemia:
Continue home statins and Zetia
Hypothyroidism:
Continue levothyroxine 125 mcg daily
Diabetes mellitus:
Start insulin sliding scale this morning
Peripheral vascular disease:
Plan for TCAR by vascular coming January
COPD:
Continue Spiriva
Add bronchodilators as needed
Depression:
Continue antidepressant
DVT prophylaxis:
Eliquis
CODE STATUS:
Full code
Total time spent on today's encounter was 53 minutes which included time spent in counseling the patient/family regarding diagnosis and treatment plan as listed above, goals of care, and symptom management. Case was discussed with nursing staff,
specialists, and care coordinators/case management. All labs and imaging personally reviewed by me. Remainder the time spent in detailed review of previous records, lab data, imaging, and other medical provider documentation.
Anticipated Discharge: 24 - 48 hours
Subjective/Interval History
-
Date of Service: January 05, 2025
Patient feels less short of breath today. No chest pain. Afebrile
Objective Data
-
Labs:
Laboratory Results
01/05/25
04:34
WBC 8.7
Hgb 10.1 L
Hct 30.8 L
Plt Count 287
Sodium 140
Potassium 4.2
Chloride 104
Carbon Dioxide 31 H
BUN 25 H
Creatinine 1.5 H
Glucose 100 H
Calcium 8.5
Vital Signs:
Vital Signs
Temp Pulse Resp BP Pulse Ox
97.9 F 53 14 123/47 94
01/05/25 06:59 01/05/25 08:24 01/05/25 08:24 01/05/25 04:24 01/05/25 08:24
I&O
01/04/25 01/05/25 01/06/25
06:59 06:59 06:59
Intake Total 150 / 150
Output Total 600 / 600 1250 / 1250
Balance -450 / -450 -1250 / -1250
[2025-01-05] MEDS: ZESTRIL PO (10:33)
[2025-01-05 11:57] VITALS: BP 123/54
[2025-01-05 12:23] LABS: Glucose - Point of Care 118 mg/dl (70-99)
--- NOTE | 2025-01-05 15:00 | W.PN.CARDCBS ---
Today's Communication / Plan
-
Hold spironolactone, Farxiga and furosemide
Consider restart if creatinine is stable
Impression / Plan
-
PCP: Sari Maynard
Mobile Architect:Dr. Lois Truong
Impression:
Acute HFpEF proBNP 3660
Recent admission for acute HFpEF 11/30/2024 until 11/30/2024
EF 55 to 60% by DEWAYNE 08/19/2024
Paroxysmal A-fib
s/p successful DEWAYNE/CV 08/19/2024
Previously managed with amiodarone, but stopped due to tremors 10/2024
Chronic Eliquis OAC
Colon polyp with recent resection/colectomy 08/02/2024 ([facility])
Coronary artery disease
s/p OM1 TOSIN 2000
s/p D1 TOSIN in May 2022 ([facility])
Hypertension
Hyperlipidemia
Type 2 diabetes
Mild to moderate mitral regurgitation by DEWAYNE 08/19/2024
Hypothyroidism
Obesity
Vertigo
PAD/right carotid surgery, CTA head and neck May 2024 greater than 80% LICA stenosis
Scheduled for TCAR with Dr. Davila 01/02/2025
Echo 07/24/24 [facility]: EF 65 to 70% moderate left atrial dilation. Aortic sclerosis without stenosis. Severe MAC with moderate mitral regurgitation, mild TR, PAP 33 mmHg
ECHO 08/13/24: EF 70%, no regional wall motion abnormalities noted, mildly dilated LA, mild to moderate MS with mean gradient 7 mmHg, mild to moderate MR, mild to moderate TR, moderate to severe pulmonary hypertension with PAP 50 to 55 mmHg
DEWAYNE 08/19/24: EF 55 to 60%, no HECTOR thrombus, mild to moderate MR, mild to moderate TR
Impression:
Recurrent acute on chronic HFpEF
Mitral regurgitation with mild mitral stenosis
CAD with PCI to diagonal 2022, obtuse marginal in 2020
Status post right CEA, for left carotid TCAR January 15
Paroxysmal A-fib, intolerant of amiodarone, cardioversion August 2024 Hemicolectomy for polyp July 2024
Hypertension, hyperlipidemia, type 2 diabetes, COPD, depression
Plan:
She looks well from the standpoint of heart failure. No evidence of volume overload at present.
Blood pressure is well-maintained.
However creatinine is up to 1.5. Furosemide was held this morning. Farxiga and spironolactone were started yesterday.
Will hold furosemide, Farxiga and spironolactone. Await follow-up creatinine in the morning. If creatinine is stable, would favor restart with close follow-up of BMP. If creatinine continues to rise we will need to discontinue spironolactone and
furosemide. Lisinopril has been held, and given preserved EF does not need to be restarted.
Will reassess in a.m., if feeling well she could potentially be discharged.
Probably should reschedule left carotid endarterectomy which was tentatively on for January 15.
Discussed with patient's nieces and with patient.
Progress Note - Mobile Architect
Subjective
Date of Service: January 05, 2025
79-year-old woman admitted with acute heart failure presumably with preserved EF. Recently hospitalized with heart failure in November, proBNP 6610. Recently postponed left TCAR
PMH: CAD, bare-metal stent to OM1 2000, D1 in 2022, paroxysmal atrial fibrillation with DEWAYNE cardioversion August 2024, HFpEF, mild to moderate mitral regurgitation, cerebrovascular disease with right carotid endarterectomy, hypertension,
hyperlipidemia, type 2 diabetes, hypothyroidism, obesity, hemicolectomy July 2024 for polyp
PSH: Hemicolectomy 2024, right knee replacement, left tibial fracture, right carotid endarterectomy
Allergies: Amiodarone: Tremor
Meds: Apixaban 5 mg twice daily, aspirin, 81 mg a day, atorvastatin 80 mg at bedtime, Lexapro 10 mg daily, ezetimibe 10 mg daily, iron, lisinopril 10 mg daily on hold, Striverdi, levothyroxine, dapagliflozin 10 mg a day, furosemide 40 mg daily,
spironolactone 12.5 mg daily
119/49, pulse 60, respiratory rate 20, intake and output incomplete, weight is 72.8 kg, down 2 kg from yesterday and 5.4 kg since admission, looks well, lungs are clear, regular rate and rhythm, no obvious murmurs, abdomen benign, not much edema,
JVD okay
Hemoglobin 10.1, platelets are 287, BUN/creatinine are 25 and 1.5, creatinine had been 1.0
Objective
Labs:
01/05/25 04:34
01/05/25 04:34
Labs
Hgb 10.1 g/dL (12.0-16.0) L 01/05/25 04:34
Hct 30.8 % (37.0-47.0) L 01/05/25 04:34
Plt Count 287 10^3/uL (130-400) 01/05/25 04:34
Sodium 140 mmol/L (135-145) 01/05/25 04:34
Potassium 4.2 mmol/L (3.5-5.1) 01/05/25 04:34
BUN 25 mg/dl (7-17) H 01/05/25 04:34
Creatinine 1.5 mg/dL (0.6-1.0) H 01/05/25 04:34
Glucose 100 mg/dl (70-99) H 01/05/25 04:34
Troponins
01/03/25
21:12
Troponin I < 0.012
Vital Signs and I&O:
Vital Signs
Temp Pulse Resp BP Pulse Ox
36.6 C 60 20 119/49 97
01/05/25 11:57 01/05/25 10:30 01/05/25 11:57 01/05/25 06:59 01/05/25 11:57
Vital Signs
Temp Pulse Resp BP Pulse Ox
36.6 C 60 20 119/49 97
01/05/25 11:57 01/05/25 10:30 01/05/25 11:57 01/05/25 06:59 01/05/25 11:57
Intake & Output
01/03/25 01/04/25 01/05/25 01/06/25
07:59 07:59 07:59 07:59
Intake Total 150 / 150
Output Total 600 / 600 1250 / 1250
Balance -450 / -450 -1250 / -1250
Physical Exam
Physical Exam
See above
[2025-01-05 15:07] VITALS: BP 139/49
[2025-01-05] MEDS: ALDACTONE 12.5 MG PO (15:31)
[2025-01-05 17:30] LABS: Glucose - Point of Care 115 mg/dl (70-99)
[2025-01-05 19:22] VITALS: BP 137/53
[2025-01-05 22:08] VITALS: BP 122/58
[2025-01-05 22:12] LABS: Glucose - Point of Care 110 mg/dl (70-99)
[2025-01-05] MEDS: LIPITOR 80 MG PO (22:46)
[2025-01-05] MEDS: ZETIA 10 MG PO (22:46)
[2025-01-05] MEDS: MELATONIN 10 MG PO (22:46)
[2025-01-06] VITALS (9 sets, daily range): BP systolic 113–184; BP diastolic 48–80; BMI 27.0
--- NOTE | 2025-01-06 02:03 | PTCARENOTE ---
Pt with no complaints at change of shift. Sinus beckie on telemetry. no c/o sob at rest.
[2025-01-06] MEDS: SYNTHROID 125 MCG PO (04:49)
[2025-01-06 05:19] LABS: Hematocrit 31.2 % (37.0-47.0); Hemoglobin 10.2 g/dL (12.0-16.0); Mean Corp Hgb Conc. 32.7 g/dL (33.0-37.0); Mean Corpuscular Volume 93.1 fL (81.0-99.0); Platelet Count 277 10^3/uL (130-400); Red Cell Dist. Width 14.3 % (11.5-14.5)
[2025-01-06 05:41] LABS: Blood Urea Nitrogen 24 mg/dl (7-17); Calcium 8.8 mg/dl (8.4-10.2); Carbon Dioxide 29 mmol/L (22-30); Chloride 107 mmol/L (98-107); Estimated Creatinine Clearance 33 ml/min; Glucose 98 mg/dl (70-99); Potassium 4.4 mmol/L (3.5-5.1); Sodium 140 mmol/L (135-145); eGFR 42.35
[2025-01-06] MEDS: SPIRIVA RESPIMAT 2.5 MCG 2 PUFF INH (07:30)
[2025-01-06] MEDS: STRIVERDI RESPIMAT 2 PUFF INH (07:30)
[2025-01-06 08:14] LABS: Glucose - Point of Care 93 mg/dl (70-99)
[2025-01-06] MEDS: ELIQUIS 5 MG PO ×2 (08:57→19:43)
[2025-01-06] MEDS: LEXAPRO 10 MG PO (08:57)
[2025-01-06] MEDS: FEOSOL 325 MG PO (08:57)
[2025-01-06] MEDS: ASPIR LOW (ENTERIC COATED) 81 MG PO (08:57)
--- NOTE | 2025-01-06 09:07 | W.PN.HOSP.TC ---
Today's Communication/Plan
-
GDMT optimization per cardiology
Check BMP in a.m.
Assessment / Plan
Assessment / Plan
A/P:
Acute shortness of breath secondary to acute diastolic congestive heart failure with pulmonary edema:
Resolved symptoms. Not hypoxic. Weight lower than her baseline-today 162 pounds normally under 164 pounds.
Creatinine went up with heart failure treatments-currently TJ inhibitor, Lasix which are her oral medications are on hold plus the currently introduced Farxiga and spironolactone on hold.
Continue to optimize GDMT medication per cardiology.
Unclear etiology.
Normal EF noted. But patient does have valvular insufficiencies-DEWAYNE in August of this year showed EF of 55 to 60%, mild to moderate MR, mild to moderate TR. Consider repeat echocardiogram
She does have a history of CAD and a remote PCI and stent. No evidence of OR this admission. With etiology remaining elusive unclear of role of stress test. She on aspirin and anticoagulation which I would continue as patient not only has CAD but
also PAD. No bleeding complications so far. Continue with statins.
Cardiology following.
GARRETT
Chronic kidney disease stage IIIa
Suspect GARRETT secondary to heart failure/its treatment. Improving creatinine today with holding treatments.
Baseline creatinine 1.0
Avoid nephrotoxic
Monitor renal function
Acute respiratory insufficiency:
Resolved
Paroxysmal atrial fibrillation:
Successful cardioversion on August of this year
Not on rate control or antiarrhythmic due to side effects
On anticoagulation, Eliquis 5 mg twice a day
Continue cardiac monitoring
Hypertension:
Continue antihypertensives
Hyperlipidemia:
Continue home statins and Zetia
Hypothyroidism:
Continue levothyroxine 125 mcg daily
Diabetes mellitus:
Start insulin sliding scale this morning
Peripheral vascular disease:
Plan for TCAR by vascular coming January
COPD:
Continue Spiriva
Add bronchodilators as needed
Depression:
Continue antidepressant
DVT prophylaxis:
Eliquis
CODE STATUS:
Full code
DC once the GDMT treatments are optimized and renal function improves.
Anticipated Discharge: Within 24 hours
Subjective/Interval History
-
Date of Service: January 06, 2025
Patient says she is asymptomatic without shortness of breath, chest pain or palpitation.
Voicing no specific complaints.
No lightheadedness or dizziness.
No nausea or vomiting. No fever or chills.
Objective Data
-
Labs:
Laboratory Results
01/06/25
04:49
WBC 7.9
Hgb 10.2 L
Hct 31.2 L
Plt Count 277
Sodium 140
Potassium 4.4
Chloride 107
Carbon Dioxide 29
BUN 24 H
Creatinine 1.3 H
Glucose 98
Calcium 8.8
Vital Signs:
Vital Signs
Temp Pulse Resp BP Pulse Ox
97.7 F 64 15 113/48 93
01/06/25 07:03 01/06/25 09:00 01/06/25 07:34 01/06/25 07:06 01/06/25 07:03
I&O
01/05/25 01/06/25 01/07/25
06:59 06:59 06:59
Intake Total 400 / 400
Output Total 1250 / 1250 1000 / 1000
Balance -1250 / -1250 -1000 / -1000 400 / 400
Physical Exam
-
General: Comfortable
Respiratory: Clear to Auscultation and Non Labored Respirations; Negative Accessory Resp Muscle Use
Cardiac: Regular Rhythm, S1/S2 and Murmur
Musculoskeletal: No Edema
Neuro: AO x 3
Psych: Calm; Negative Confused
Data Reviewed
-
Labs: Labs Reviewed by me
--- NOTE | 2025-01-06 09:35 | W.PN.CARDCBS ---
Today's Communication / Plan
-
Resume Farxiga, spironolactone
Hold Lasix, TJ inhibitor
Impression / Plan
-
PCP: Sari Maynard
Drafter Chief Design:Dr. Lois Truong
Impression:
Acute HFpEF proBNP 3660
Recent admission for acute HFpEF 11/30/2024 until 11/30/2024
EF 55 to 60% by DEWAYNE 08/19/2024
Paroxysmal A-fib
s/p successful DEWAYNE/CV 08/19/2024
Previously managed with amiodarone, but stopped due to tremors 10/2024
Chronic Eliquis OAC
Colon polyp with recent resection/colectomy 08/02/2024 ([facility])
Coronary artery disease
s/p OM1 TOSIN 2000
s/p D1 TOSIN in May 2022 ([facility])
Hypertension
Hyperlipidemia
Type 2 diabetes
Mild to moderate mitral regurgitation by DEWAYNE 08/19/2024
Hypothyroidism
Obesity
Vertigo
PAD/right carotid surgery, CTA head and neck May 2024 greater than 80% LICA stenosis
Scheduled for TCAR with Dr. Davila 01/02/2025
Echo 07/24/24 [facility]: EF 65 to 70% moderate left atrial dilation. Aortic sclerosis without stenosis. Severe MAC with moderate mitral regurgitation, mild TR, PAP 33 mmHg
ECHO 08/13/24: EF 70%, no regional wall motion abnormalities noted, mildly dilated LA, mild to moderate MS with mean gradient 7 mmHg, mild to moderate MR, mild to moderate TR, moderate to severe pulmonary hypertension with PAP 50 to 55 mmHg
DEWAYNE 08/19/24: EF 55 to 60%, no HECTOR thrombus, mild to moderate MR, mild to moderate TR
Impression:
Recurrent acute on chronic HFpEF
Mitral regurgitation with mild mitral stenosis
CAD with PCI to diagonal 2022, obtuse marginal in 2020
Status post right CEA, for left carotid TCAR January 15
Paroxysmal A-fib, intolerant of amiodarone, cardioversion August 2024 Hemicolectomy for polyp July 2024
Hypertension, hyperlipidemia, type 2 diabetes, COPD, depression
Plan:
She looks well from the standpoint of heart failure. No evidence of volume overload at present.
Blood pressure is well-maintained.
However creatinine is up to 1.5. Furosemide was held this morning. Farxiga and spironolactone were started yesterday and held. Cr now 1.3.
Will hold furosemide, Farxiga and spironolactone. Creatinine is stable (1.3 from 1.5), would favor restart with close follow-up of BMP. Ok to resume Farxiga and spironolactone.
If creatinine continues to rise we will need to discontinue spironolactone and furosemide. Lisinopril has been held, and given preserved EF does not need to be restarted.
Patient feeling well without complaints
Probably should reschedule left carotid endarterectomy which was tentatively on for January 15.
Discussed with patient, nursing, hospitalist.
Progress Note - Drafter Chief Design
Subjective
Date of Service: January 06, 2025
Patient seen and examined. No acute events overnight. Patient resting comfortable without complaint. Denies chest pain, shortness of breath, lightheadedness, dizziness, or weakness. Roughly 1 L output over last 24 hours.
Objective
Labs:
01/06/25 04:49
01/06/25 04:49
Labs
Hgb 10.2 g/dL (12.0-16.0) L 01/06/25 04:49
Hct 31.2 % (37.0-47.0) L 01/06/25 04:49
Plt Count 277 10^3/uL (130-400) 01/06/25 04:49
Sodium 140 mmol/L (135-145) 01/06/25 04:49
Potassium 4.4 mmol/L (3.5-5.1) 01/06/25 04:49
BUN 24 mg/dl (7-17) H 01/06/25 04:49
Creatinine 1.3 mg/dL (0.6-1.0) H 01/06/25 04:49
Glucose 98 mg/dl (70-99) 01/06/25 04:49
Troponins
01/03/25
21:12
Troponin I < 0.012
Vital Signs and I&O:
Vital Signs
Temp Pulse Resp BP Pulse Ox
97.7 F 64 15 113/48 93
01/06/25 07:03 01/06/25 09:00 01/06/25 07:34 01/06/25 07:06 01/06/25 07:03
Vital Signs
Temp Pulse Resp BP Pulse Ox
97.7 F 64 15 113/48 93
01/06/25 07:03 01/06/25 09:00 01/06/25 07:34 01/06/25 07:06 01/06/25 07:03
Intake & Output
01/04/25 01/05/25 01/06/25 01/07/25
06:59 06:59 06:59 06:59
Intake Total 150 / 150 400 / 400
Output Total 600 / 600 1250 / 1250 1000 / 1000
Balance -450 / -450 -1250 / -1250 -1000 / -1000 400 / 400
Physical Exam
Physical Exam
GENERAL: no acute distress
EYE: sclera anicteric
NECK: Supple, no JVD, no carotid bruit appreciated
ENT: normal nose, moist mucosal membranes
CARDIAC: Regular rate and rhythm, +S1/S2, no murmur, rubs, or gallops
CHEST/PULMONARY: Normal effort, clear breath sounds
ABDOMEN: Soft, without focal tenderness or distention
NEUROLOGICAL: Alert and oriented x3
SKIN: Warm and dry, no rash
PSYCH: Normal and appropriate interaction.
Telemetry sinus rhythm
[2025-01-06 12:40] LABS: Glucose - Point of Care 129 mg/dl (70-99)
[2025-01-06 16:56] LABS: Glucose - Point of Care 146 mg/dl (70-99)
--- NOTE | 2025-01-06 20:43 | PTCARENOTE ---
Rec'd pt at change of shift. Pt AAO*3, VSS, and SR on TELE monitor. Pt denies any pain or discomfort but reported SOB, pulse ox 98-99% on room air, lung sounds clear but diminished bilaterally at bases. 2L nasal canula applied for comfort. PT
reported immediate relief and education on importance and need for heart failure related medications and diuretics. Pt resting with call serra in reach. See MAR and flowchart for full pt care and assessment.
[2025-01-06] MEDS: MELATONIN 10 MG PO (23:15)
[2025-01-06] MEDS: ZETIA 10 MG PO (23:16)
[2025-01-06] MEDS: LIPITOR 80 MG PO (23:16)
[2025-01-06 23:24] LABS: Glucose - Point of Care 97 mg/dl (70-99)
[2025-01-07 03:24] VITALS: BP 117/40
[2025-01-07 03:26] VITALS: BP 117/40
[2025-01-07 04:59] LABS: Blood Urea Nitrogen 22 mg/dl (7-17); Calcium 8.8 mg/dl (8.4-10.2); Carbon Dioxide 23 mmol/L (22-30); Chloride 107 mmol/L (98-107); Estimated Creatinine Clearance 39 ml/min; Glucose 93 mg/dl (70-99); Iron 61 ug/dl (37-170); Potassium 4.9 mmol/L (3.5-5.1); Sodium 139 mmol/L (135-145); eGFR 51.75
[2025-01-07 05:15] LABS: Ferritin 64.3 ng/ml (11.1-264.0); Total Iron Binding Capacity 295 ug/dl (265-497)
[2025-01-07] MEDS: SYNTHROID 125 MCG PO (05:57)
[2025-01-07 06:00] VITALS: BMI 27.0
[2025-01-07] MEDS: STRIVERDI RESPIMAT 2 PUFF INH (08:04)
[2025-01-07] MEDS: SPIRIVA RESPIMAT 2.5 MCG 2 PUFF INH (08:04)
[2025-01-07 08:05] VITALS: BP 144/45
[2025-01-07 08:08] LABS: Glucose - Point of Care 92 mg/dl (70-99)
[2025-01-07] MEDS: LEXAPRO 10 MG PO (08:10)
[2025-01-07] MEDS: ALDACTONE 12.5 MG PO (08:10)
[2025-01-07] MEDS: FEOSOL 325 MG PO (08:10)
[2025-01-07] MEDS: ASPIR LOW (ENTERIC COATED) 81 MG PO (08:10)
[2025-01-07] MEDS: ELIQUIS 5 MG PO (08:10)
[2025-01-07] MEDS: FARXIGA 10 MG PO (08:10)
--- NOTE | 2025-01-07 09:12 | W.PN.CARDCBS ---
Addendum entered and electronically signed by Louie Murphy MD 01/07/25 10:15:
I saw and examined the patient.
The RACE STARTER or PA's note was reviewed and I agree with the note.
Comment: General: Well developed, well nourished in NAD.
Neck: Supple, no JVD, HJR, carotids +2 B/L, no bruits bilaterally.
Heart: Non displaced PMI, RRR, no murmurs, No S3, S4, no rubs.
Lungs: Scattered rhonchi at the bases
Extremities: No clubbing, cyanosis or edema bilaterally.
Neuro: Grossly nonfocal, awake, alert and oriented x3.
Will stop Farxiga and Aldactone. Will resume lisinopril at 10 mg and resume Lasix as well and check renal profile in 1 week. Will arrange outpatient follow-up this week. Discussed with primary service. Stable cardiology status for discharge
Original Note:
Today's Communication / Plan
-
Stop Farxiga and spironolactone
Resume lisinopril 10 mg daily and on discharge will resume p.o. Lasix at a higher dose of 60 mg daily
BMP/proBNP in 1 week
Outpatient follow-up scheduled 01/13 to reevaluate patient as scheduled for upcoming TCAR surgery on 01/15
Impression / Plan
-
PCP: Sari Maynard
[employer] Operator:Dr. Lois Truong
Impression:
Acute HFpEF proBNP 3660
Recent admission for acute HFpEF 11/30/2024 until 11/30/2024
EF 55 to 60% by DEWAYNE 08/19/2024
Paroxysmal A-fib
s/p successful DEWAYNE/CV 08/19/2024
Previously managed with amiodarone, but stopped due to tremors 10/2024
Chronic Eliquis OAC
Colon polyp with recent resection/colectomy 08/02/2024 ([facility])
Coronary artery disease
s/p OM1 TOSIN 2000
s/p D1 TOSIN in May 2022 ([facility])
Hypertension
Hyperlipidemia
Type 2 diabetes
Mild to moderate mitral regurgitation by DEWAYNE 08/19/2024
Hypothyroidism
Obesity
Vertigo
PAD/right carotid surgery, CTA head and neck May 2024 greater than 80% LICA stenosis
Scheduled for TCAR with Dr. Davila 01/02/2025
Echo 07/24/24 [facility]: EF 65 to 70% moderate left atrial dilation. Aortic sclerosis without stenosis. Severe MAC with moderate mitral regurgitation, mild TR, PAP 33 mmHg
ECHO 08/13/24: EF 70%, no regional wall motion abnormalities noted, mildly dilated LA, mild to moderate MS with mean gradient 7 mmHg, mild to moderate MR, mild to moderate TR, moderate to severe pulmonary hypertension with PAP 50 to 55 mmHg
DEWAYNE 08/19/24: EF 55 to 60%, no HECTOR thrombus, mild to moderate MR, mild to moderate TR
Plan:
-patient presented with acute HFpEF. she also had admission for CHF 11/2024.
-she is planned for TCAR 01/15/25 with vascular surgery
-she had mild episode of heavy breathing last evening lasting about 15 minutes however resolved quickly. she did not get lasix yesterday as Cr had bumped with diuresis and addition of farxiga/spironolactone to 1.5.
-Cr improved to 1.1 on 01/07/25. she received farxiga and spironolactone this AM. with plan for upcoming surgery, would plan to resume lisinopril 10mg daily and lasix at higher dose of 60mg daily and hold off on farxiga and spironolactone at this time
however would consider resuming post procedure if Cr can tolerate
-BMP/proBNP in 1 week
-may consider for OP ischemic evaluation. EF preserved by last echo earlier this year.
-will arrange for OP follow up 01/13/25 so patient is reevaluated prior to scheduled surgery
-d/w nursing, hospitalist
Progress Note - [employer] Operator
Subjective
Date of Service: January 07, 2025
Denies chest pain. Reports mild episode of 'heavy breathing last evening' which was transient and improved on its own
Objective
Labs:
01/06/25 04:49
01/07/25 03:37
Labs
Hgb 10.2 g/dL (12.0-16.0) L 01/06/25 04:49
Hct 31.2 % (37.0-47.0) L 01/06/25 04:49
Plt Count 277 10^3/uL (130-400) 01/06/25 04:49
Sodium 139 mmol/L (135-145) 01/07/25 03:37
Potassium 4.9 mmol/L (3.5-5.1) 01/07/25 03:37
BUN 22 mg/dl (7-17) H 01/07/25 03:37
Creatinine 1.1 mg/dL (0.6-1.0) H 01/07/25 03:37
Glucose 93 mg/dl (70-99) 01/07/25 03:37
Vital Signs and I&O:
Vital Signs
Temp Pulse Resp BP Pulse Ox
97.7 F 74 15 144/45 96
01/07/25 07:00 01/07/25 08:09 01/07/25 08:09 01/07/25 08:05 01/07/25 08:09
Vital Signs
Temp Pulse Resp BP Pulse Ox
97.7 F 74 15 144/45 96
01/07/25 07:00 01/07/25 08:09 01/07/25 08:09 01/07/25 08:05 01/07/25 08:09
Intake & Output
01/05/25 01/06/25 01/07/25 01/08/25
07:59 07:59 07:59 07:59
Intake Total 1180 / 1180 250 / 250
Output Total 1250 / 1250 1000 / 1000 1500 / 1500 300 / 300
Balance -1250 / -1250 -1000 / -1000 -320 / -320 -50 / -50
Physical Exam
Physical Exam
GEN: No distress, awake, alert, oriented x3
HEENT: supple, anicteric, mmm, EOMI
LUNGS: CTA bilaterally, no wheezes/rales
CV: Reg, S1/S2, 1/6 murmur
ABD: soft, BS+, NT/ND
EXT: No cyanosis, clubbing, edema
NEURO: Gross non-focal
SKIN: Warm, pink, dry. No rash
[2025-01-07] MEDS: LASIX 20 MG PO (09:28)
--- NOTE | 2025-01-07 10:04 | W.DCSUMMARY ---
Discharge Summary
Discharge Data
Date of Admission: 01/04/25
Date of Discharge: 01/07/25
-
Pending Results: No
Hospital Course
Primary diagnosis:
Acute heart failure preserved EF
EF of 55 to 60%
Secondary diagnosis:
Paroxysmal atrial fibrillation
CAD s/p prior coronary stenting last in 2022
Primary hypertension
Hyperlipidemia
Mild to moderate mitral regurgitation
Hypothyroidism
PAD status post right carotid endarterectomy
Await left total carotid endarterectomy
Hospital course:
Patient with a history of CHF preserved EF, paroxysmal atrial fibrillation, chronic kidney disease stage III, CAD status post PCI, coronary artery disease, hypertension, COPD presented with acute onset of shortness of breath. Chest x-ray showed
prominent interstitial marking and central vasculature concerning for mild pulmonary edema which is new. Troponins were negative. BNP was 3660. She was taking Lasix 40 mg daily at home. Her baseline weight is apparently around 164. Her weight
was up at 172 on admission. She was put on IV diuretics and was left on her home dose of TJ inhibitor. Farxiga and spironolactone was added here. Her creatinine got worse to peak of 1.5. So medications were held and once creatinine came down to
1.1 her lisinopril was introduced to 10 mg which is her home dose but Lasix was increased to 60 mg daily prior to discharge. On admission she was requiring oxygen which resolved prior to discharge.
Today she is alert and oriented. Denies any shortness of breath or chest pain. Remains on room air. Weight is 164 pounds. Pulse was 47 sinus rhythm. Blood pressure 144/45. Chest was clear.
Was seen by cardiology today and was deemed stable for discharge.
Consultants on board:
Cardiology-Fernando Pérez
Discharge Plan
-
Patient Disposition: Home (Routine Discharge)
Discharge Diagnosis/Procedures: Acute CHF
Diet: 2 Gram Sodium and Restrict fluids to 48 oz
Activity: As tolerated
Driving Restrictions: As prior to admission
Bathing Restrictions: None
Blood Work: BMP/proBNP Monday01/10/25
Specialty Instructions: Weigh Daily- Call MD for wt gain/loss 3 lbs overnight/5 lbs in 1 week
Instructions: *DCA Heart Failure Instructions
Referrals:
Lois Truong DO [Active, Cardiology] - 01/13/25 10:20 am
Referral Note: Your appointment has changed from 01/27/25. You now have a cardiology follow-up appointment at the [facility] and [facility] office in [facility] on Monday01/13/25. Please call with questions
Sari Maynard DO [Family Provider, Family Practice]
Prescriptions:
New
furosemide 20 mg Tablet
60 mg PO DAILY Qty: 90 0RF
Continued
atorvastatin 80 mg Tablet
80 mg PO HS
cyanocobalamin (vitamin B-12) 1,000 mcg Tablet
1,000 mcg PO DAILY
lisinopril 10 mg Tablet
10 mg PO DAILY
escitalopram oxalate [Lexapro] 10 mg Tablet
10 mg PO DAILY
ezetimibe [Zetia] 10 mg Tablet
10 mg PO HS
cholecalciferol (vitamin D3) [Vitamin D3] 50 mcg (2,000 unit) Tablet
50 mcg PO DAILY
aspirin 81 mg Tablet,Delayed Release (Dr/Ec)
81 mg PO DAILY Qty: 30 0RF
ferrous sulfate [iron] 325 mg (65 mg iron) Tablet
325 mg PO DAILY
umeclidinium-vilanterol [Anoro Ellipta] 62.5-25 mcg/actuation Blister With Device
1 inh INHALATION R DAILY
levothyroxine 150 mcg Tablet
125 mcg PO DAILY
Eliquis 5 mg Tablet
5 mg PO BID
melatonin 5 mg Tablet,Chewable
10 mg PO HS
Discontinued
furosemide [Lasix] 40 mg tablet
40 mg PO DAILY Qty: 30 11RF
Discharge Orders:
Discharge Patient (As Directed); Ordered 01/07/25
Ordered By: Clif Sherman
Care Plan Goals
Care Plan Goals:
Problem: Readiness for enhanced knowledge related to diagnosis and treatment plan
Goal: Understand your diagnosis and treatment plan needs, including medications if applicable.
Instructions: Know your diagnosis, underlying causes and treatment plan options, including medications if applicable. Consult with your health care team to learn about your diagnosis and treatment plan, including medications if applicable.
Discharge Date and Time
Print Language: ARABIC
--- NOTE | 2025-01-07 11:18 | PTCARENOTE ---
IV and tele removed. Discharge instructions reviewed w/ pt and verbalizes understanding. Belongings collected and sent home w/ pt. Escorted via WC and staff assist. D/C to home w/ family member.
--- NOTE | 2025-01-07 15:53 | CM ---
spoke to pt in room, she is prev indep, lives with her neice in a 2 story home with a first floor set up and 3 steps to enter. she has a walker she uses. plan is for dc to home when medically stable.
== END 2025-01-07 11:19 | disposition home or self-care (01) | DRG 291 ==
LOC: IVU 00:43
PROVIDERS: Hospitalist; Physician Assistant; ADMITTING PHYSICIAN Internal Medicine; ATTENDING PHYSICIAN Internal Medicine; EMERGENCY PHYSICIAN Emergency Medicine; FAMILY PHYSICIAN Family Medicine; OTHER PHYSICIAN Internal Medicine Cardiovascular Disease
DX: I13.0 Hypertensive heart and chronic kidney disease with heart failure and stage 1 through stage 4 chronic kidney disease, or unspecified chronic kidney disease (principal); I50.33 Acute on chronic diastolic (congestive) heart failure; J81.0 Acute pulmonary edema; N17.9 Acute kidney failure, unspecified; I48.0 Paroxysmal atrial fibrillation; E11.22 Type 2 diabetes mellitus with diabetic chronic kidney disease; I25.10 Atherosclerotic heart disease of native coronary artery without angina pectoris; J44.9 Chronic obstructive pulmonary disease, unspecified; I70.0 Atherosclerosis of aorta; I27.20 Pulmonary hypertension, unspecified; N18.31 Chronic kidney disease, stage 3a; I34.0 Nonrheumatic mitral (valve) insufficiency; I73.9 Peripheral vascular disease, unspecified; F32.A Depression, unspecified; R06.89 Other abnormalities of breathing; E03.9 Hypothyroidism, unspecified; R09.02 Hypoxemia; E66.9 Obesity, unspecified; Z96.651 Presence of right artificial knee joint; Z86.0100 Personal history of colon polyps, unspecified; Z90.49 Acquired absence of other specified parts of digestive tract; Z95.5 Presence of coronary angioplasty implant and graft; Z87.891 Personal history of nicotine dependence; Z79.82 Long term (current) use of aspirin; Z79.890 Hormone replacement therapy; Z79.51 Long term (current) use of inhaled steroids; Z79.84 Long term (current) use of oral hypoglycemic drugs; Z79.01 Long term (current) use of anticoagulants; Z82.49 Family history of ischemic heart disease and other diseases of the circulatory system
CPT/HCPCS: 71045; 80048; 80053; 82728; 82962; 83036; 83540; 83550; 83735; 83880; 84484; 85025; 85027; 93005; 94640; 94760; 96365; 96366; 96375; 99285

== ENCOUNTER 2025-01-14 13:36 | Inpatient (IN) | payer OTHER, SELFPAY ==
[2025-01-14] VITALS (10 sets, daily range): BP systolic 107–149; BP diastolic 42–96; PULSE 54–63; BMI 26.3
[2025-01-14 12:02] LABS: Hematocrit 32.4 % (37.0-47.0); Hemoglobin 10.5 g/dL (12.0-16.0); Mean Corp Hgb Conc. 32.4 g/dL (33.0-37.0); Mean Corpuscular Volume 93.6 fL (81.0-99.0); Platelet Count 304 10^3/uL (130-400); Red Cell Dist. Width 13.7 % (11.5-14.5)
[2025-01-14 12:41] LABS: ALT (SGPT) 25 U/L (0-35); AST (SGOT) 37 U/L (14-36); Albumin 3.7 g/dl (3.5-5.0); Alkaline Phosphatase 57 U/L (38-126); Blood Urea Nitrogen 29 mg/dl (7-17); Calcium 9.0 mg/dl (8.4-10.2); Carbon Dioxide 27 mmol/L (22-30); Chloride 109 mmol/L (98-107); Estimated Creatinine Clearance 30 ml/min; Glucose 107 mg/dl (70-99); Potassium 5.1 mmol/L (3.5-5.1); Sodium 141 mmol/L (135-145); Total Protein 7.1 g/dl (6.3-8.2); eGFR 38.75
--- NOTE | 2025-01-14 12:55 | ED.GENMED ---
History of Present Illness
General
Chief Complaint: Fainting Sensation
Time Seen by Provider: 01/14/25 11:27
History of Present Illness
History of Present Illness:
79-year-old female presents to the emergency department for evaluation after a syncopal event. She states she was standing at her kitchen cooking when she suddenly lost consciousness. The fall was not witnessed but she was found on the ground by
her daughter. At this time she denies any complaints with the exception of low black/gluteal pain. She is scheduled for a carotid endarterectomy at this hospital tomorrow and recently discontinued Eliquis in favor of Plavix. No vision changes,
headache, neck pain, or chest pain. She was noted to be bradycardic for EMS prior to arrival and given IV atropine.
Past History
Past History
ED Past Medical History: Arrthythmia and CHF
ED Past Surgical History: Bowel resection
Social History
Tobacco: Non-smoker
Alcohol: None
Drug: None
Personal: Other
Living: other
Employment: Other
Family History
Family History: Other
Review of Systems
Review of Systems
Allergies reviewed?: Yes
All Other Systems: ROS reviewed and negative except as documented in HPI and ROS
Phy Exam
Physical Exam
Physical Exam:
GEN: Well appearing, NAD, WDWN
HEENT: Oral mucosa moist, no scleral icterus, no nasal congestion
Cardiac: Mildly bradycardic, regular
Lung: No respiratory distress, no tachypnea
MSK: No gross deformity or injuries, no midline cervical, thoracic, or lumbar spinal tenderness, moderate tenderness to the coccygeal sacral area
Skin: Good color, no pallor or jaundice, no rashes
Neuro: AO x3; CN II-XII grossly intact. BUE strength 5/5 in all whipple, sensation intact and symmetric. BLE strength 5/5 in all whipple, sensation intact and symmetric
Psych: Calm, cooperative
Course
Orders/Labs/Results
Orders:
Orders
01/14/25 11:13
EKG [Electrocardiogram (*1)] Urgent
Reason for Study: Syncope
EKG- Treatment ONCE
01/14/25 11:25
Electrocardiogram (*1) Urgent
Reason for Study: Syncope
EKG- Treatment ONCE
01/14/25 11:40
CT Head W/o Iv Contrast Urgent
Comment:
Reason For Exam: syncope, fall
01/14/25 11:47
Complete Blood Count/No Diff Urgent
Comprehensive Metabolic Panel Urgent
01/14/25 12:25
Clopidogrel Bisulfate [Plavix] 75 mg PO NOW STA
01/14/25 12:51
Acetaminophen [Tylenol] 1,000 mg PO NOW STA
01/14/25 13:22
Admit/Transfer Patient As Directed
Co-Sign Provider:
Level of Care: Inpatient admission
Assign to:: Telemetry
Physician / Group: celestino
Diagnosis: syncope
Reason for Telemetry: Syncope
Date to Stop Telemetry: 01/16/25
Time to Stop Telemetry: 11:00
Reason for Hospitalization: syncope
carotid stenosis
Expected length of stay greater than two midnights?: Yes
ELOS- Estimated Length of Stay in days: 3
I certify the patient meets the requirements for IP care: Yes
PRN Pain Medication Management As Directed
May give lesser potent ordered pain med per pt: Yes
preference::
Protocol:: Medication orders for pain may be administered in a
manner that supports deferring to patient preference
when the pt is:
- Requesting an ordered lesser potent pain medication.
Least to most potent pain medications are defined
as: acetaminophen < NSAID < tramadol < opioids
(morphine, oxycodone, hydromorphone).
- Requesting a lesser dose of the same medication IF
ORDERED.
- Requesting a less intrusive route of administration
if both routes are prescribed by the provider (PO <
IV).
01/14/25 13:24
Code Status As Directed
Resuscitation Status: Full Code
01/16/25 11:00
DC Protocol for Telemetry ONCE
Abnormal Lab Results
01/14/25
11:47
RBC 3.46 L 10^6/uL
(4.20-5.40)
Hgb 10.5 L g/dL
(12.0-16.0)
Hct 32.4 L %
(37.0-47.0)
MCHC 32.4 L g/dL
(33.0-37.0)
Chloride 109 H mmol/L
(98-107)
BUN 29 H mg/dl
(7-17)
Creatinine 1.4 H mg/dL
(0.6-1.0)
Glucose 107 H mg/dl
(70-99)
AST 37 H U/L
(14-36)
01/14/25 11:47
01/14/25 11:47
Vital Signs
Initial and Last Documented VS:
Initial Vital Signs
Temp Pulse Resp BP Pulse Ox
98.1 F 68 20 127/42 100
01/14/25 11:13 01/14/25 11:13 01/14/25 11:13 01/14/25 11:13 01/14/25 11:13
Last Documented Vital Signs
Temp Pulse Resp BP Pulse Ox
98.6 F 56 16 137/45 100
01/14/25 11:49 01/14/25 11:49 01/14/25 11:49 01/14/25 11:49 01/14/25 12:58
MDM/Problems Addressed
MDM/Problems Addressed:
Patient's syncopal event was most likely vasovagal in nature however given the reported prehospital bradycardia and her upcoming carotid procedure, will place in observation on telemetry
Comment
Comment:
EKG independently interpreted by me shows sinus bradycardia at a rate of [address] changes concerning for ischemia
*Pulse Oximetry
SaO2: 100
Oxygen Mode of Delivery: Room air
Patient hypoxic: no
*Critical Care Note
Total Time (30-74mins, 75-104mins- exclusive of procedures): Not Applicable
ED Attending Note
-
Portions of this chart may have been created with voice recognition software.� Occasional wrong word or��sound alike� substitutions may have occurred due to the inherent limitations of voice recognition software.
Discharge Plan
Departure
Patient Disposition: Admit
Date of Disposition: 01/14/25
Time of Disposition: 12:58
Admit to: Telemetry
Presentation/result/management discussed w/ accepting MD/DO: Hospitalist
Discharge Problem:
Syncope
Interventions
Interventions:
*Risk Screen - Suicide Last Done: 01/14/25 11:13
*General Assessment Last Done: 01/14/25 11:13
*Neglect/Abuse Screening Last Done: 01/14/25 11:49
*ED- Fall Risk Assessment Last Done: 01/14/25 11:49
*ED COVID-19 Vaccine History Last Done: 01/14/25 11:49
ED- Cardiac Assessment Last Done: 01/14/25 11:49
ED- Neurological Assessment Last Done: 01/14/25 11:49
--- NOTE | 2025-01-14 13:00 | HPS.HSE ---
Addendum entered and electronically signed by Lenin Rodriguez MD 01/14/25 14:06:
This is an addendum to the H&P written by Maritza Mccain on 01/14/2025. �Patient seen and examined independently with [employer]END[employer] MECHANIC.
79-year-old female past medical history of bilateral carotid artery stenosis status post right carotid endarterectomy, paroxysmal atrial fibrillation on Eliquis, CAD status post stent in 2022, mild to moderate mitral regurgitation, sinus
bradycardia, CHF, hypertension, hyperlipidemia, hypothyroidism, presenting for syncope. �Standing at the kitchen when suddenly lost consciousness which was witnessed. �Complains of mid back pain after the fall.
No new visual changes, headache, neck pain or chest pain or shortness of breath.
She is scheduled for left carotid endarterectomy tomorrow and has been off of Eliquis. �Patient states that her heart rate had previously been as low as 50s in the past without symptoms. �She saw her elementary school art teacher Dr. Beck yesterday.
Noted to be bradycardic for EMS with heart rate of 40s and given IV atropine although asymptomatic at that time.
Vital signs unremarkable. �Heart rate currently 50s to 60s. �EKG shows sinus bradycardia heart rate 55. �LVH.
Labs show stable hemoglobin 10.5. �Creatinine stable at 1.4.
CT head shows no evidence of acute intracranial abnormality. �Mild opacification of the right mastoid air cells likely benign trapped fluid.
Patient with syncopal episode. �Unclear if this was a vagal episode versus symptomatic bradycardia versus secondary to left-sided carotid artery stenosis although unilateral carotid artery stenosis should not cause syncope. �ER was going to
discharge however vascular surgery wanted her to stay for observation before planned carotid artery endarterectomy tomorrow.
Check orthostatic vital signs. �Vascular consulted. �Monitor on telemetry. �N.p.o. past midnight. �Hold Lasix for now. �Has been off of Eliquis. �Continue aspirin and Plavix.
Original Note:
Family Physician
-
Family Physician: Sari Maynard, DO
Chief Complaint
-
syncope.
History of Present Illness
79-year-old female with pMH CHF, carotid stenosis, PAD depression anxiety, hypertension for presents to the emergency department for evaluation after a syncopal event. She states she was standing at her kitchen cooking when she suddenly felt
lightheaded and heavy breathing and fell. She lost consciousness for second. The fall was not witnessed but she was found on the ground by her daughter gagging. She hit her left side of the face either on the stall or counter top. She has been
complaining of lower back pain since then. Denied any incontinence of bowel or bladder. At present denied any headache fever, chills, chest pain, short of breath. Patient denies any abdominal pain, nausea, vomiting or diarrhea. Patient denied
dysuria hematuria. She is scheduled for a carotid endarterectomy at this hospital tomorrow and recently discontinued Eliquis in favor of Plavix. She was noted to be bradycardic for EMS prior to arrival and given IV atropine.
Admitted for further management
Medical History
Past Medical History
Past Medical History: Reports Other
Additional Past Medical History:
ASCVD
Chronic HFpEF
Atrial Fibrillation
Hypertension
DM-II
Hypothyroidism
Colon Polyp
Obesity
Past Surgical History: Reports Other
Additional Past Surgical History:
Partial Colectomy (08/02/24 - [facility])
PTCA with Stents
Right TKA
Right CEA
Left Tibia Bone Grafting
DCCV
Social History
Alcohol: None
Drug: None
Living: With Family
Family History
Family History: Not pertinent
Allergies / Home Medications
Allergies reflects when Allergies were last updated in [employer].
Home Medications with original date entered in [employer]
Allergy/Medication List:
Allergies
Allergy/AdvReac Type Severity Reaction Status Date / Time
No Known Allergies Allergy Verified 01/14/25 11:20
Home Medications
atorvastatin 80 mg tablet 80 mg PO HS High Cholesterol 08/11/24
escitalopram oxalate 10 mg tablet (Lexapro) 10 mg PO DAILY Depression 08/11/24
ezetimibe 10 mg tablet (Zetia) 10 mg PO HS High Cholesterol 08/11/24
lisinopril 10 mg tablet 10 mg PO DAILY Blood Pressure 08/11/24
aspirin 81 mg tablet,delayed release 81 mg PO DAILY #30 tabs 08/19/24
apixaban 5 mg tablet (Eliquis) 5 mg PO BID Blood Clot Prevention/Tx 11/28/24
levothyroxine 150 mcg tablet 125 mcg PO DAILY 12/25/24
furosemide 20 mg tablet 60 mg (3 x 20 mg) PO DAILY #90 tabs 01/07/25
clopidogrel 75 mg tablet (Plavix) 75 mg PO DAILY 01/14/25
Review of Systems
-
Constitutional: Reports No Symptoms
EENT: Reports No Symptoms
Respiratory: Reports No Symptoms
Cardiac: Reports No Symptoms
Abdomen/GI: Reports No Symptoms
: Reports No Symptoms
Musculoskeletal: Reports No Symptoms
Skin: Reports No Symptoms
Neurological: Reports Other (Lightheaded)
Endocrine: Reports No Symptoms
Hematologic/Lymphatic: Reports No Symptoms
Psych: Reports No Symptoms
Physical Exam
Vital Signs
Vital Signs
Temp Pulse Resp BP Pulse Ox
98.6 F 56 16 137/45 100
01/14/25 11:49 01/14/25 11:49 01/14/25 11:49 01/14/25 11:49 01/14/25 12:58
Physical Exam
General: Well Developed, Well Nourished and No Apparent Distress
HEENT: NormoCephalic, Moist mucous membranes and Atraumatic
Respiratory: Clear
Cardiac: S1/S2 and Regular Rhythm; No Murmur or Rub
GI: Soft, Non Tender, Non Distended and Normal Bowel Sounds; No Organomegaly
Rectal: Deferred by Provider
Musculoskeletal: No Clubbing, No Cyanosis and No Edema
Skin: No Rash
Neuro: Nonfocal/grossly intact
Laboratory Results
-
01/14/25 11:47
01/14/25 11:47
Laboratory Results
Total Bilirubin 0.8 mg/dl (0.2-1.3) 01/14/25 11:47
AST 37 U/L (14-36) H 01/14/25 11:47
ALT 25 U/L (0-35) 01/14/25 11:47
Alkaline Phosphatase 57 U/L (38-126) 01/14/25 11:47
Data Reviewed
-
CT Scan: Report Reviewed by me
Lab Data: Labs Reviewed by me
Impression/Plan
-
# Syncope unclear cause likely secondary to vagal vs symptomatic bradycardia vs carotid stenosis.
- Obtain orthostatic
- PT/OT consult
- Head CT with no evidence of acute intracranial abnormality.Mild opacification of the right mastoid air cells, most likely benign trapped fluid. Please correlate with any symptoms that would suggest right-sided mastoiditis.
- EKG with sinus bradycardia heart rate in 50s
- Continue to monitor heart rate
# Anemia of chronic disease
- Hemoglobin stable at 10.5, no active bleeding
- Continue to monitor
CKD stage III
- Creatinine 1.4
- Continue to monitor
# History of heart failure with preserved EF 55-60%
# History of paroxysmal A-fib
# History of CAD with stent placement
# Hypertension/hyperlipidemia
# Mild to moderate mitral regurgitation
- Status post cardioversion in August
- Eliquis on hold for possible endarterectomy tomorrow
- Plavix continued
- Aspirin continued
- Atorvastatin, Zetia continued
- Furosemide continue
- Strict EMANUEL, daily weight
- Lisinopril continued
# Hypothyroidism
- Levothyroxine continued
# History of LICA stenosis
# History of peripheral artery disease
- Plan for endarterectomy tomorrow
-will keep her NPO after MN
#Depression:
Continue escitalopram
#DVT prophylaxis:
-SCD
CODE STATUS:
Full code
[2025-01-14] MEDS: PLAVIX 75 MG PO (13:04)
[2025-01-14] MEDS: TYLENOL 1000 MG PO (13:04)
--- NOTE | 2025-01-14 16:16 | EDRN ---
this RN called the receiving unit and notified them that paper report was going to be tubed up
--- NOTE | 2025-01-14 16:27 | CM ---
CM reviewed chart and met with pt bedside in ED. Pt lives with her niece, 2 story home, 3 [address], first floor BR/full BA.
Independent in ambulation with RW, needs assistance with ADLs and personal care. Her niece is her paid caregiver, 8 hours a day, 5 days a week.
LEA reviewed and signed, pt declined copy.
Confirms prescription coverage.
Hx [facility] in November, no hx SNF
PCP: Sari Maynard
Pharmacy: [facility]
Anticipate discharge home, watch for needs.
[2025-01-14] MEDS: ZETIA 10 MG PO (20:47)
[2025-01-14] MEDS: LIPITOR 80 MG PO (20:47)
[2025-01-14] MEDS: TYLENOL 650 MG PO (20:48)
[2025-01-15] VITALS (11 sets, daily range): BP systolic 118–149; BP diastolic 49–64; BMI 26.6; BMI 27.2
[2025-01-15] MEDS: BACTROBAN 2% OINTMENT 1 APPLIC NASAL (06:20)
[2025-01-15] MEDS: PERIDEX 0.12% ORAL RINSE 15 ML PO (06:20)
--- NOTE | 2025-01-15 06:42 | TRANSFER ---
Report given to paint laboratory technician RN. Patient transported with all belongings.
--- NOTE | 2025-01-15 06:49 | W.SUR.PREOP ---
Pre-Operative Surgical Note
-
I have examined this patient prior to the performance of the scheduled procedure.
The patient's condition is unchanged from the time of the current History and
Physical and the patient is able to undergo the scheduled procedure.
[2025-01-15 08:48] LABS: ACT-LR - POC 266 Seconds (116-155)
[2025-01-15 08:56] LABS: Glucose - Point of Care 118 mg/dl (70-99)
--- NOTE | 2025-01-15 09:53 | CM ---
Pt for surgery today. Will go to ICU post-op
Plan: TBD post-operatively
--- NOTE | 2025-01-15 10:37 | W.SUR.POST ---
Surgical Immediate Post Op
Note
Pre Op Diagnosis: Left carotid stenosis
Post Op Diagnosis: Left carotid stenosis
Procedure Performed: Left TCAR
Primary Surgeon: Dima Davila M.D.
student assistance counselor: TESSA Oneill
Anesthesia: GETA
Estimated Blood Loss: 20 mL
Fluids: See anesthesia flowsheet
Drains/Shunts: N/A
Specimens/Cultures: N/A
Doppler/Duplex/Angio (Y/N): Y
Complications: None
Operative Findings: Successful endovascular intervention for carotid plaque, upon awakening patient moved bilateral extremities and lower EXTR to command and spontaneously with equal strength
--- NOTE | 2025-01-15 10:41 | OR.RPT ---
Operative Report
Operative Report
PROCEDURE DATE: 01/15/2025
Preoperative diagnosis: Critical left carotid artery stenosis, asymptomatic.
Postoperative diagnosis: same
Procedure:
1. Open exposure of left common carotid artery.
2. Transcarotid left artery revascularization with stent (TCAR) with Enroute 7mm-9mm (reverse tapered) x 40mm self-expanding stent, second 9mm x 30mm overlapping self-expanding stent, and utilizing Enroute NUCLEAR WASTE PROCESS OPERATOR flow reversal intraprocedural neuro
protection.
3. Intraoperative EEG/SSEP monitoring.
4. Supervision and interpretation
Surgeon: Giovanni
Door Clamper: HENRIQUE Salgado, required for all aspects of procedure including assistance with traction/countertraction, advancement of devices, assistance with closure.
Complications: None
Anesthesia: General
Flow Reversal Time: 24minutes
Indications for procedure:
Severe asymptomatic left carotid artery stenosis. Severely calcified plaque, along length of lesion. Risk/benefits/alternatives of TCAR fully discussed. Patient understood all and wished to proceed.
Description of procedure:
Patient was identified brought to the operating room placed on the table in supine position. After the adequate administration of anesthesia and perioperative antibiotics she was prepped and draped in the standard surgical fashion. A standard
preoperative timeout was undertaken and everybody was in agreement the plan. A longitudinal incision was made at the base of the left neck between the heads of the sternocleidomastoid muscle just superior to the clavicle. This incision was carried
through the skin subcutaneous tissue. Using the electrocautery dissection was carried through the platysma muscle layer and then in the plane between the heads of the sternocleidomastoid muscle. Then using a combination of sharp dissection with
the Metzenbaum scissors and electrocautery I dissected along the anterior medial border of the internal jugular vein. The common carotid artery was identified and carefully dissected away from the surrounding structures take great care to avoid any
injury to the structures. Note the vagus nerve was visualized and was clearly avoided from harm's way. A vessel loop was passed around the common carotid artery. The common carotid artery was dissected circumferentially only in the proximal
portion of the exposed artery, and the anterior surface was dissected for another 2 cm. Next, a 5-0 Prolene pursestring stitch was placed on the anterior middle surface of the common carotid artery at the anticipated puncture/cannulation site.
Next, the right common femoral vein was punctured with a micropuncture kit under direct duplex ultrasound guidance. An 8 Tamazight venous sheath was placed over 0.035 inch wire into the vein. The sheath was flushed. The patient was now given 7000
units of intravenous heparin.
Next, while maintaining anterior tension on the vessel loop (single looped), the common carotid artery was punctured with a micropuncture needle (premarked) to only 1 cm and a premarked 0.014 inch wire was inserted and then the needle was exchanged
out for a premarked micropuncture sheath and advanced to 3 cm nasir. The dilator and wire were then removed. Left anterior oblique angiogram was performed. This delineated the carotid bifurcation. It confirmed the severe stenosis in the proximal
internal carotid artery. We noted at this point, that the carotid bifurcation was very short relative to the puncture site. We felt that when the larger sheath was placed, this would be too close to the endpoint of where the stent would lie.
Therefore we felt that trying to puncture the artery more proximally would be of benefit. Therefore at this point, the sheath was withdrawn as the pursestring stitch was tied down. Hemostasis was noted. I then placed a second pursestring stitch
about 1-1/2 to 2 cm more proximally (dissected the common carotid artery slightly more proximally now) with vessel loop allowing anterior retraction to facilitate. Now I repunctured with a premarked micropuncture needle similar to prior. The 0.014
inch premarked wire was inserted and the needle exchanged out for the premarked micropuncture sheath. Angiogram now demonstrated better positioning. It also confirmed severity of the internal carotid artery stenosis. The carotid bifurcation was
marked on the screen. I then advanced the micropuncture wire carefully under roadmap guidance into the external carotid artery. Once I did this I readvanced the introducer for the micropuncture sheath and then advanced the sheath/introducer
together into the external carotid artery. I then exchanged for a 0.035 inch J-tip wire into the external carotid. I then exchanged the micropuncture sheath out for the 8 Tamaz[address] [place] sheath, which was advanced to the footplate under
fluoroscopy with careful vigilance of the distal tip of the wire. Once advanced to the footplate, the introducer and wire were removed. The tension from the vessel loop was released. And the sheath was secured to the skin with silk suture. The
sheath was burped back and also flushed carefully. Next repeat imaging was undertaken confirming the best angulation of the gantry for imaging. At this point, the angioplasty balloon and stent were prepared. We paused to confirm the plan
regarding balloon/stent, and confirmed adequate ACT over 250. Next, I connected the arterial sheath to the venous sheath with the filter section. As such passive flow reversal was initiated. There were no evidence of any EEG or SSEP changes. We
flushed the venous sheath to confirm adequate passive flow reversal.
At this point given that we were otherwise ready, I clamped the common carotid artery thereby initiating active flow reversal. Again I flushed the venous sheath to confirm active flow reversal. There was initially no EEG or SSEP changes. I now
used a precurved 0.014 inch wire and roadmap assisted fluoroscopy guidance to cannulate the internal carotid artery carefully. While I was in the process of doing this, we noted no EEG changes, but SSEP slowing to the right median nerve.
Therefore, we switched to low flow on the flow reversal. In addition, we felt this sheath might have been against the wall or right up against the carotid bifurcation and therefore we gently pulled it back a little bit. As soon as we did these
maneuvers, SSEPs returned to baseline. There was less than 1 minute of SSEP slowing. Now, I was able to gain access into the distal cervical/proximal intracranial internal carotid artery. Next I used a balloon which was a 5 mm x 30 mm standard
angioplasty balloon. I then pre-angioplastied the stenosis. The patient had been given glycopyrrolate to prevent any baroreceptor mediated bradycardia. The patient's blood pressure had also been optimized after discussion with our anesthesiology
colleagues prior to initiation of flow reversal. I then quickly exchanged out my balloon catheter for the stent 7mm-9mm (reverse taper) x 40mm Enroute stent. The stent was positioned under roadmap guidance. When I was happy with the positioning I
then unsheathed in the standard fashion. I then attempted removal of the sheath delivery device. However I struggled with this. The delivery device seemed caught on the plaque in the proximal internal carotid artery. After a couple of maneuvers
including reshe thing the delivery device, it finally was able to be pulled out over the wire carefully. Given these concerns, I felt that I needed to reangioplasty the proximal internal carotid artery and the distal common carotid artery. In
addition I felt that the stent needed to be extended as there was still some plaque at the bifurcation. Therefore, I then readvanced a 5 mm angioplasty balloon. However this had trouble advancing through the stent. I felt it might have been due
to the profile of this balloon as it had been used. Therefore we got a second fresh balloon which was able to advance through. Once this advanced through I ballooned that segment. Balloon was profiled nicely. The second stent was now advanced (9
mm x 30 mm straight stent). This was positioned overlapping the prior stent, and extending into the more proximal common carotid artery. Once I unsheathed this stent, I was satisfied with its positioning. The delivery device was then removed.
Completion angiography was undertaken after 1 to 2 minutes of waiting after deployment of the stent for the flow reversal to take effect. Completion angiogram now demonstrated brisk flow through the internal carotid system into the intracranial
system. However there appeared to be still some filling defect in the proximal internal carotid artery. It was tough to tell but my suspicion was that that was still residual plaque that was just behind or outside the stent. We obliqued 2
different positions that seem to indicate that. However to be certain we reballooned that area with a 5 mm angioplasty balloon. Now, angiogram demonstrated good result. There still was some plaque behind the stent especially seen on one of the
obliquities, but the other obliquities look nicely expanded now. At this point I was very satisfied. Good intracranial filling was noted. The 0.014 inch wire was then removed from the internal carotid artery. Next, the common carotid artery
was unclamped. Finally I disconnected the flow reversal circuit.
Now, I tied down my 5-0 Prolene pursestring suture on the common carotid artery while removing the sheath. An additional 6-0 [id number] suture was placed for full hemostasis. We gave protamine to reverse the heparin. I irrigated the incision
site and confirmed full hemostasis. Then, we closed in layers using single [id number] 2-0 Vicryl to reapproximate the sternocleidomastoid heads. Then used 3-0 Vicryl platysma muscle running layer followed by 4-0 Monocryl subcuticular running
stitch. Dermabond was applied. The femoral vein sheath was also removed and manual pressure was applied to that site and hemostasis was noted there as well. The patient tolerated the procedure well. She awoke moving all 4 extremities to command.
She was transported the recovery room in stable condition. Notes that due to the additional measures we needed to undertake, and difficulty combating the plaque in terms of device delivery removal, the time of active flow reversal was prolonged
compared to usual. However again as noted aside from the initial less than 1 minute SSEP change (that fully resolved to baseline), there was no EEG or SSEP changes throughout the procedure.
--- NOTE | 2025-01-15 10:47 | CON.INTV ---
Consultation
Consultation Request
Date/Time Consultation Requested: 01/15/2025 - 1015
Date/Time Consultation Performed: 01/15/2025 - 1032
Requesting Provider: TESSA Cason
Performing Provider: Dr. Jenkins
Reason for Consultation: s/p L-TCAR
Medical History
-
Chief Complaint: Syncope
History of Present Illness:
79-year-old female with a past medical history of bilateral carotid artery stenosis with history of right CEA, COPD, paroxysmal A-fib on Eliquis with history of cardioversion, left upper lobe subsolid nodule, hypertension, DM type II,
hypothyroidism, PAD, CAD with TOSIN to OM1 + D1, chronic HFpEF, and much regurgitation who presented with syncope. She was standing at her kitchen when she lost consciousness. She had been off Eliquis due to a schedule left carotid endarterectomy.
She was bradycardic for EMS with heart rate in the 40s and given IV atropine although she was asymptomatic at that time. Initial vitals showed heart rate 68, respiratory rate 20, BP 127/42, saturating 100% on room air and initial temperature 98.1
�F. CT head was negative for an acute intracranial abnormality. Prior CT angio head/neck on 11/15/2024 showed left carotid bifurcation/proximal ICA near-total occlusion due to calcified atherosclerotic plaque. She had met with Dr. Davila on 11/22/2024
in the office with plan for a left TCAR with possible left carotid endarterectomy. Given her syncope which is likely related to this critical left carotid artery stenosis, she was brought to the OR today and underwent a transcarotid left artery
revascularization with stent, with intraoperative EEG/SSEP monitoring. There were no immediate complications and patient was transferred to the ICU postoperatively for further care. Political Science Chair services consulted for additional
management/recommendations.
When I saw the patient, she was resting in bed with no complaints. Current heart rate 49, BP via right upper extremity A-line: 127/52, and she is saturating 94% on room air. She denies HECK, SOB, abdominal pain, nausea, fevers chills.
PMHx: Paroxysmal A-fib on Eliquis with history of cardioversion (08/19/2024), COPD, lung nodule, hypertension, DM type II, hypothyroidism, hyperlipidemia, CAD s/p TOSIN to OM1 in 2000 and TOSIN to D1 in May 2022, carotid artery stenosis s/p right
CEA, depression/anxiety, vertigo, chronic HFpEF, PAD
PSHx: Right knee replacement, cardioversion (x 2 in 2022, and 08/2024), right carotid endarterectomy (at [facility]), colon resection/colectomy (at [facility] � 08/02/2024)
Past Medical History
Past Medical History: Other (Above as per HPI)
Past Surgical History: Other (Above as per HPI)
Social History
Tobacco: Former Smoker (Quit smoking 2.5 years ago, with [id number]-glvk history)
Alcohol: None
Drug: None
Family History
Family History: CAD (Brother: Heart attack at age 63), Diabetes (Father + mother) and Hypertension (Mother)
Allergies / Home Medications
Allergies
Allergy/AdvReac Type Severity Reaction Status Date / Time
No Known Allergies Allergy Verified 01/14/25 11:20
Home Medications
�Medication �Instructions �Recorded �Confirmed �Last Taken �Type
atorvastatin 80 mg tablet 80 mg PO HS High Cholesterol 08/11/24 01/14/25 11/27/24 History
escitalopram oxalate 10 mg tablet 10 mg PO DAILY Depression 08/11/24 01/14/25 11/28/24 History
(Lexapro)
ezetimibe 10 mg tablet (Zetia) 10 mg PO HS High Cholesterol 08/11/24 01/14/25 11/27/24 History
lisinopril 10 mg tablet 10 mg PO DAILY Blood Pressure 08/11/24 01/14/25 11/28/24 History
aspirin 81 mg tablet,delayed 81 mg PO DAILY #30 tabs 08/19/24 01/14/25 11/28/24 Rx
release
apixaban 5 mg tablet (Eliquis) 5 mg PO BID Blood Clot 11/28/24 01/14/25 11/28/24 History
Prevention/Tx
levothyroxine 150 mcg tablet 125 mcg PO DAILY Thyroid 12/25/24 01/14/25 Unknown History
furosemide 20 mg tablet 60 mg (3 x 20 mg) PO DAILY #90 tabs 01/07/25 01/14/25 Unknown Rx
clopidogrel 75 mg tablet (Plavix) 75 mg PO DAILY Blood Clot 01/14/25 01/14/25 Unknown History
Prevention/Tx
Review of Systems
-
History Source: Patient
All other systems: Negative unless noted
Vitals / Labs / Diagnostic Testing
Vital Signs
Temp Pulse Resp BP Pulse Ox
98.1 F 63 22 134/60 94
01/15/25 15:07 01/15/25 20:45 01/15/25 20:45 01/15/25 12:45 01/15/25 20:45
Lab Data
01/15/25 10:35
01/15/25 10:35
Diagnostic Testing:
Physical Exam
-
HEENT: Anicteric and Other (Vertical incision with granulation tissue seen on left anterior neck)
Cardiovascular: S1/S2 and Peripheral Edema (negative)
Respiratory: Clear, Wheeze (negative), Rales (negative), Rhonchi (negative) and Non-Labored Respirations
GI: Soft, Non Distended, Non Tender and Normal Bowel Sounds
Neurology: AO x 3 and Tremors (negative)
Skin: Warm and Dry
General: Respiratory Distress (negative), Comfortable, Chills (negative) and Sweats (negative)
Assessment
-
Assessment: 79-year-old female with a past medical history of bilateral carotid artery stenosis with history of right CEA, COPD, paroxysmal A-fib on Eliquis with history of cardioversion, left upper lobe subsolid nodule, hypertension, DM type II,
hypothyroidism, PAD, CAD with TOSIN to OM1 + D1, chronic HFpEF, and much regurgitation who presented with syncope. She was standing at her kitchen when she lost consciousness. She had been off Eliquis due to a schedule left carotid endarterectomy.
She was bradycardic for EMS with heart rate in the 40s and given IV atropine although she was asymptomatic at that time. Initial vitals showed heart rate 68, respiratory rate 20, BP 127/42, saturating 100% on room air and initial temperature 98.1
�F. CT head was negative for an acute intracranial abnormality. Prior CT angio head/neck on 11/15/2024 showed left carotid bifurcation/proximal ICA near-total occlusion due to calcified atherosclerotic plaque. She had met with Dr. Davila on 11/22/2024
in the office with plan for a left TCAR with possible left carotid endarterectomy. Given her syncope which is likely related to this critical left carotid artery stenosis, she was brought to the OR on 01/15/2025 and underwent a transcarotid left
artery revascularization with stent, with intraoperative EEG/SSEP monitoring. There were no immediate complications and patient was transferred to the ICU postoperatively for further care. Political Science Chair services consulted for additional
management/recommendations.
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
stenosis s/p right CEA, depression/anxiety, vertigo, chronic HFpEF, PAD
Impression:
#Critical left carotid artery stenosis s/p transcarotid left artery revascularization with stent with intraoperative EEG/SSEP monitoring (POD#0)
#GARRETT (improved)
#DM type II with hyperglycemia (improved) - HbA1C: 5.1 on 01/05/2025
#Class III COPD with significant bronchodilator response without air trapping or hyperinflation, and correction of a moderately reduced gas exchange capacity when accounting for alveolar volume
#Eosinophilia (slightly elevated with baseline at 300)
#Chronic anemia
#Severe restrictive lung defect (T%, VC: 55% via PFTs on 10/14/2024)
#Left upper lobe subsolid nodule with overall size 4.7 x 3.3 cm with solid component measuring 1.5 cm with negative pathology via robotic bronchoscopy on 11/01/2024; mild FDG avidity on PET/CT
#Hypertension
#CAD with TOSIN to OM1 (2000) and TOSIN to D1 (2022)
#History of right CEA due to carotid artery stenosis
#Depression/anxiety
#Chronic HFpEF
#PAD
Plan:
Postoperative surgical intensive care unit monitoring
Supplemental oxygen as needed to maintain SpO2 88-95% (given her history of COPD)
prn nebulized bronchodilators with albuterol - not currently bronchospastic
She is prescribed Anoro as an outpatient and has been doing well on this --> I will order spiriva and Striverdi while she is inpatient, and she should resume Anoro upon discharge
Given that the patient's diffusing capacity on her PFT corrects to normal when accounting for alveolar volume involved in gas exchange, as well as her significant bronchodilator response and her absolute eosinophils which at baseline are around 300,
it seems to me that she has an asthmatic etiology to her COPD. She has minimal emphysema seen on her CT chest imaging, mostly apical (R>L); she also has several scattered pulmonary cysts
Incentive spirometry encouraged 10x per hour for at least 4 hrs a day
Aspiration precautions
Pain control
Neuro and vascular checks per protocol
Maintain MAP>65
Replete electrolytes with K>4, Mg>2
Maintain euglycemia with goal BG 140-180
Vascular surgery following-correspondence and operative notes reviewed
Transfuse blood products as needed to keep Hb>7g/dL, and plt>50k (given post-operative status)
Patient follows with us in the [facility] office with Dr. Azar, last visit 11/13/2024 due to COPD with Anoro started last visit, as well as discussion of her tobacco smoking history which qualifies her for LDCT chest, pulmonary hypertension, and a left
upper lobe lung nodule that was negative for malignancy via robotic bronchoscopy performed on 11/01/2024 (rare atypical cells; cultures negative as well from [facility])
- Subsequent PET/CT on 12/05/2024 showed mild FDG uptake of the part solid left upper lobe nodule measuring 4.8 cm within max SUV of 3.5 (delayed max SUV: 3.8)
- Advised to continue following up with Dr. Azar
DVT prophylaxis
Early nutrition
Early mobilization
Code status: Full code
Political Science Chair services will continue to follow along while the patient remains in ICU level of care.
Critical care statement: A total of 44 minutes of critical care time was provided for this patient today. This includes management of unstable vital signs, evaluation of the patient at bedside, reviewing the patient's pertinent medical records
including radiographs, microbiology, laboratory evaluations, and discussion with primary team, consultants, pharmacy, nutrition, physical therapy, case management, charge nurse, critical care nursing, and respiratory therapy.
[2025-01-15 11:00] LABS: Hematocrit 27.8 % (37.0-47.0); Hemoglobin 9.0 g/dL (12.0-16.0); Mean Corp Hgb Conc. 32.4 g/dL (33.0-37.0); Mean Corpuscular Volume 92.7 fL (81.0-99.0); Platelet Count 260 10^3/uL (130-400); Red Cell Dist. Width 13.5 % (11.5-14.5)
[2025-01-15] MEDS: PLAVIX 75 MG PO (11:07)
[2025-01-15 11:08] LABS: Blood Urea Nitrogen 27 mg/dl (7-17); Calcium 8.3 mg/dl (8.4-10.2); Carbon Dioxide 23 mmol/L (22-30); Chloride 109 mmol/L (98-107); Estimated Creatinine Clearance 39 ml/min; Glucose 129 mg/dl (70-99); HDL Cholesterol 44 mg/dl; LDL Cholesterol, Calculated 37 mg/dl; Potassium 4.6 mmol/L (3.5-5.1); Sodium 138 mmol/L (135-145); Very Low Density Lipoprotein 11 mg/dl (0-30); eGFR 51.75
[2025-01-15] MEDS: ASPIR LOW (ENTERIC COATED) 81 MG PO (11:27)
[2025-01-15] MEDS: NSS 1000 IV (11:29)
--- NOTE | 2025-01-15 12:33 | PTCARENOTE ---
Received pt s/p Left TCAR procedure. Neuro check WNL, R groin soft and dressing CDI, weak pedal pulses. A-line level and zeroed, SBP within parameters. Plan of care discussed, oriented to room, family at bedside. Call serra within reach.
--- NOTE | 2025-01-15 12:45 | PTCARENOTE ---
Neuro checks from PACU at 1125, 1140, and 1155 unchanged from previous neuro checks with pupils 3mm and brisk.
[2025-01-15] MEDS: SYNTHROID 125 MCG PO (12:56)
[2025-01-15] MEDS: ZESTRIL 10 MG PO (12:57)
[2025-01-15] MEDS: LEXAPRO 10 MG PO (12:57)
--- NOTE | 2025-01-15 15:19 | PTCARENOTE ---
Pt unable to void on bedpan and refused purwick due to ongoing psychological barrier to voiding in bed. Straight cath without issue, 550cc clear yellow urine out.
--- NOTE | 2025-01-15 16:22 | W.PN.HOSP.TC ---
Addendum entered and electronically signed by Zachary Vallejo DO 01/16/25 15:11:
Additional diagnosis:
-Chronic anemia, no significant blood loss, drop in hemoglobin likely due to dilutional effect from perioperative IV fluids
Original Note:
Today's Communication/Plan
-
Assessment / Plan
Assessment / Plan
General: No Apparent Distress, Comfortable and Conversant
HEENT: NormoCephalic, Moist mucous membranes, left carotid endarterectomy site CDI
Respiratory: Clear and Non Labored Respirations
Cardiac: S1/S2 and Regular Rhythm; No Rub or Gallop
GI: Soft, Non Tender, Non Distended and Normal Bowel Sounds
Musculoskeletal: No Edema, no deformity
Skin: Warm and dry
: NO Shannon
Neuro: Awake, Alert, Nonfocal/grossly intact
Psych: Calm and Intact Judgment/Insight
Ms. Ferrara is a 79-year-old female with a medical history of CAD (status post PCI 2000 and 2022), HFpEF, carotid stenosis (status post right carotid surgery), PAD, A-fib (off Eliquis past few days due to scheduled procedure for carotid
stenosis), COPD, CKD stage III, and hypothyroidism who presented following a syncopal event. She lost consciousness and fell in her kitchen hitting the left side of her face. The initial syncopal event was unwitnessed but she was found on the
floor by her daughter. She had no evidence of seizure activity. CT imaging in the ED showed no acute abnormalities. She was initially scheduled for carotid intervention by Dr. Davila on 01/02/2025 due to greater than 80% LICA stenosis. However she
was unable to make that appointment due to being hospitalized for acute on chronic HFpEF. Carotid intervention had been rescheduled for 01/15/2025 and she has recently been off of her Eliquis in anticipation of this procedure. She was admitted for
further evaluation and management and to proceed with planned carotid endarterectomy.
Syncope:
- Unclear if this is related to her carotid disease or a vasovagal episode
- She had a planned left carotid endarterectomy planned for today 01/[address] Davila, which proceeded as planned
- Orthostatic vital signs positive at time of admission with SBP dropping approximately 40 mmHg, will recheck once okay from a vascular surgery standpoint
- PT/OT
- Continue DAPT and statin for carotid disease
HFpEF:
- Chronic, currently compensated
- Not on a beta-blane at home likely due to low resting heart rate
- Continue afterload reduction with home lisinopril 10 mg daily
- Home Lasix held for some reason, will monitor for volume overload, likely restart 60 mg daily in the next 24 hours
Paroxysmal A-fib:
- Heart rate appears well-controlled without AV esthela blocking agents
- Anticoagulation currently on hold for carotid endarterectomy, will restart as able
- Monitoring on telemetry
Hypothyroidism:
- Stable
- Continue Synthroid 125 mcg daily
DVT prophylaxis: SCDs
CODE STATUS: Full code
Total time spent on today's encounter was 54 minutes
Anticipated Discharge: 24 - 48 hours
Subjective/Interval History
-
Date of Service: January 15, 2025
Patient was seen and examined at bedside after left carotid endarterectomy. Tolerated procedure well. Currently comfortable.
Objective Data
-
Labs:
Laboratory Results
01/15/25 01/15/25
10:18 10:35
WBC Cancelled 10.4
Hgb Cancelled 9.0 L
Hct Cancelled 27.8 L
Plt Count Cancelled 260
Sodium Cancelled 138
Potassium Cancelled 4.6
Chloride Cancelled 109 H
Carbon Dioxide Cancelled 23
BUN Cancelled 27 H
Creatinine Cancelled 1.1 H
Glucose Cancelled 129 H
Calcium Cancelled 8.3 L
Vital Signs:
Vital Signs
Temp Pulse Resp BP Pulse Ox
98.1 F 63 16 134/60 94
01/15/25 15:07 01/15/25 15:30 01/15/25 15:30 01/15/25 12:45 01/15/25 15:30
I&O
01/14/25 01/15/25 01/16/25
06:59 06:59 06:59
Intake Total 180 / 180 1120 / 1120
Output Total 550 / 550
Balance 180 / 180 570 / 570
Review of Systems
-
History Source: Patient
All other systems: Reviewed and negative
Physical Exam
-
General: No Apparent Distress
[2025-01-15] MEDS: TYLENOL 650 MG PO (18:54)
--- NOTE | 2025-01-15 20:00 | PTCARENOTE ---
property assessment monitor, aaox3, GOODMAN, Neuro checks WNL. POC discussed, call serra with pt.
[2025-01-15] MEDS: LIPITOR 80 MG PO (21:24)
[2025-01-15] MEDS: ANESTHETIC LOZENGE 1 LOZENGE PO (21:24)
[2025-01-15] MEDS: ZETIA 10 MG PO (21:24)
[2025-01-16] VITALS (14 sets, daily range): BP systolic 101–164; BP diastolic 40–106; PULSE 50–62; O2SAT 95–99; BMI 27.6
--- NOTE | 2025-01-16 | PTCARENOTE ---
no changes in pt assessment.
[2025-01-16] MEDS: NSS 1000 IV (01:09)
[2025-01-16 03:17] LABS: Hematocrit 25.8 % (37.0-47.0); Hemoglobin 8.5 g/dL (12.0-16.0); Mean Corp Hgb Conc. 32.9 g/dL (33.0-37.0); Mean Corpuscular Volume 91.5 fL (81.0-99.0); Platelet Count 223 10^3/uL (130-400); Red Cell Dist. Width 13.3 % (11.5-14.5)
[2025-01-16] MEDS: TYLENOL 650 MG PO (03:23)
[2025-01-16 03:34] LABS: INR 1.37; PT 17.3 Sec (11.4-14.6)
[2025-01-16 03:35] LABS: APTT 25.9 Sec (23.4-35.0)
[2025-01-16 03:48] LABS: Blood Urea Nitrogen 24 mg/dl (7-17); Calcium 8.1 mg/dl (8.4-10.2); Carbon Dioxide 23 mmol/L (22-30); Chloride 113 mmol/L (98-107); Estimated Creatinine Clearance 48 ml/min; Glucose 134 mg/dl (70-99); Potassium 4.4 mmol/L (3.5-5.1); Sodium 140 mmol/L (135-145); eGFR 58.02
--- NOTE | 2025-01-16 04:30 | PTCARENOTE ---
pt able to void on bedpan. no changes in assessment.
[2025-01-16] MEDS: SYNTHROID 125 MCG PO (06:20)
[2025-01-16] MEDS: PLAVIX 75 MG PO (07:27)
[2025-01-16] MEDS: ASPIR LOW (ENTERIC COATED) 81 MG PO (07:27)
[2025-01-16] MEDS: ZESTRIL 10 MG PO (07:27)
[2025-01-16] MEDS: LEXAPRO 10 MG PO (07:27)
--- NOTE | 2025-01-16 07:29 | W.PN.VS ---
Addendum entered and electronically signed by Dima Davila MD 01/16/25 13:58:
Seen and examined earlier this a.m. This is a late entry. Agree with findings as noted below. Patient was without complaints. Left neck incision clean dry and intact. No hematoma. Abdomen soft, right groin puncture site flat. No hematoma.
Neurologically no focal deficits. Plan/as discussed and noted below.
Original Note:
Today's Communication / Plan
-
Patient seen and examined at bedside with Dr. Dima Davila, below plan reviewed with attending.
Assessment/Plan
-
Assessment: 79-year-old male POD #1 left TCAR
Plan:
Discontinue arterial line
Discontinue IV fluids
Out of bed to chair with progression to ambulation as tolerated
Can restart home oral anticoagulation of Eliquis, plan is for triple therapy of Eliquis 5 mg p.o. twice daily, Plavix 75 mg p.o. daily, and aspirin 81 mg p.o. daily for 30 days postoperatively given TCAR, following 30 days patient will discontinue
Plavix and continue with aspirin 81 mg p.o. daily and Eliquis 5 mg p.o. twice daily
Possible discharge later today from a vascular surgical perspective, however will defer to primary team for final decision on discharge
Follow-up placed in discharge instructions
Subjective Data
-
Date of Service: January 16, 2025
Patient seen examined bedside, offers no complaints. Patient endorses, 'I feel great.' Denies nausea, vomiting, fever, and chills.
Objective Data
-
Vital Signs
Temp Pulse Resp BP Pulse Ox
97.6 F 53 16 134/60 98
01/16/25 03:09 01/16/25 06:45 01/16/25 06:45 01/15/25 12:45 01/16/25 06:45
Intake and Output
01/15/25 01/16/25 01/17/25
06:59 06:59 06:59
Intake Total 180 / 180 2640 / 2640
Output Total 975 / 975
Balance 180 / 180 1665 / 1665
Intake:
Oral fluids 180 / 180 800 / 800
IV fluids (Total) 1840 / 1840
Normosal 400 / 400
Nss 1,000 ml @ 80 mls/hr IV . 1440 / 1440
[id number] JANICE Rx#:[id number]
Output:
Urine, Voided 425 / 425
Straight cath output 550 / 550
Other:
Number of approximated MODERATE 3
amounts of urine
Lab Results
01/16/25 03:03
01/16/25 03:03
Calcium 8.1 mg/dl (8.4-10.2) L 01/16/25 03:03
Total Bilirubin 0.8 mg/dl (0.2-1.3) 01/14/25 11:47
AST 37 U/L (14-36) H 01/14/25 11:47
ALT 25 U/L (0-35) 01/14/25 11:47
Alkaline Phosphatase 57 U/L (38-126) 01/14/25 11:47
Total Protein 7.1 g/dl (6.3-8.2) 01/14/25 11:47
Albumin 3.7 g/dl (3.5-5.0) 01/14/25 11:47
Physical Exam
-
No apparent distress, resting in bed comfortably
No tachycardia
No dyspnea on room air
Left lower neck incision clean, dry, and intact, Exofin glue intact, no evidence of hematoma or edema, face symmetrical
Patient moves bilateral upper extremities and lower extremities spontaneously and to command, equal strength
[2025-01-16] MEDS: STRIVERDI RESPIMAT 2 PUFF INH (07:56)
[2025-01-16] MEDS: SPIRIVA RESPIMAT 2.5 MCG 2 PUFF INH (07:56)
--- NOTE | 2025-01-16 08:22 | W.PN.INTV ---
Today's Communication / Plan
Recommendations
Up OOB as tolerated
Encourage incentive spirometer use
Postoperative management as per vascular surgery
Goal SpO2 88-95%
Outpatient pulmonary office follow-up with Dr. Azar
Patient is being prepared for discharge home. No additional recommendations at this time. Tool Supervisor/Pulmonary service will now sign off. Please reconsult if there are any additional questions/concerns, or if patient's respiratory status
deteriorates.
Assessment
-
Assessment: 79-year-old female with a past medical history of bilateral carotid artery stenosis with history of right CEA, COPD, paroxysmal A-fib on Eliquis with history of cardioversion, left upper lobe subsolid nodule, hypertension, DM type II,
hypothyroidism, PAD, CAD with TOSIN to OM1 + D1, chronic HFpEF, and much regurgitation who presented with syncope. She was standing at her kitchen when she lost consciousness. She had been off Eliquis due to a schedule left carotid endarterectomy.
She was bradycardic for EMS with heart rate in the 40s and given IV atropine although she was asymptomatic at that time. Initial vitals showed heart rate 68, respiratory rate 20, BP 127/42, saturating 100% on room air and initial temperature 98.1
�F. CT head was negative for an acute intracranial abnormality. Prior CT angio head/neck on 11/15/2024 showed left carotid bifurcation/proximal ICA near-total occlusion due to calcified atherosclerotic plaque. She had met with Dr. Davila on 11/22/2024
in the office with plan for a left TCAR with possible left carotid endarterectomy. Given her syncope which is likely related to this critical left carotid artery stenosis, she was brought to the OR on 01/15/2025 and underwent a transcarotid left
artery revascularization with stent, with intraoperative EEG/SSEP monitoring. There were no immediate complications and patient was transferred to the ICU postoperatively for further care. Tool Supervisor services consulted for additional
management/recommendations.
Chronic conditions [employer]: Paroxysmal A-fib on Eliquis with history of cardioversion (08/19/2024), COPD, lung nodule, hypertension, DM type II, hypothyroidism, hyperlipidemia, CAD s/p TOSIN to OM1 in 2000 and TOSIN to D1 in May 2022, carotid artery
stenosis s/p right CEA, depression/anxiety, vertigo, chronic HFpEF, PAD
Impression:
#Critical left carotid artery stenosis s/p transcarotid left artery revascularization with stent with intraoperative EEG/SSEP monitoring (POD#1)
#GARRETT (improved)
#DM type II with hyperglycemia (improved) - HbA1C: 5.1 on 01/05/2025
#Class III COPD with significant bronchodilator response without air trapping or hyperinflation, and correction of a moderately reduced gas exchange capacity when accounting for alveolar volume
#Eosinophilia (slightly elevated with baseline at 300)
#Chronic anemia
#Severe restrictive lung defect (T%, VC: 55% via PFTs on 10/14/2024)
#Left upper lobe subsolid nodule with overall size 4.7 x 3.3 cm with solid component measuring 1.5 cm with negative pathology via robotic bronchoscopy on 11/01/2024; mild FDG avidity on PET/CT
#Hypertension
#CAD with TOSIN to OM1 (2000) and TOSIN to D1 (2022)
#History of right CEA due to carotid artery stenosis
#Depression/anxiety
#Chronic HFpEF
#PAD
Plan:
Postoperative surgical intensive care unit monitoring
Supplemental oxygen as needed to maintain SpO2 88-95% (given her history of COPD)
prn nebulized bronchodilators with albuterol - not currently bronchospastic
She is prescribed Anoro as an outpatient and has been doing well on this --> continue spiriva and Striverdi while she is inpatient, and resume Anoro upon discharge
Given that the patient's diffusing capacity on her PFT corrects to normal when accounting for alveolar volume involved in gas exchange, as well as her significant bronchodilator response and her absolute eosinophils which at baseline are around 300,
it seems to me that she has an asthmatic etiology to her COPD. She has minimal emphysema seen on her CT chest imaging, mostly apical (R>L); she also has several scattered pulmonary cysts
Incentive spirometry encouraged 10x per hour for at least 4 hrs a day
Aspiration precautions
Pain control
Neuro and vascular checks per protocol
Maintain MAP>65
Replete electrolytes with K>4, Mg>2
Maintain euglycemia with goal BG 140-180
Vascular surgery following-correspondence and operative notes reviewed
Transfuse blood products as needed to keep Hb>7g/dL, and plt>50k (given post-operative status)
Patient follows with us in the [facility] office with Dr. Azar, last visit 11/13/2024 due to COPD with Anoro started last visit, as well as discussion of her tobacco smoking history which qualifies her for LDCT chest, pulmonary hypertension, and a left
upper lobe lung nodule that was negative for malignancy via robotic bronchoscopy performed on 11/01/2024 (rare atypical cells; cultures negative as well from [facility])
- Subsequent PET/CT on 12/05/2024 showed mild FDG uptake of the part solid left upper lobe nodule measuring 4.8 cm within max SUV of 3.5 (delayed max SUV: 3.8)
- Advised to continue following up with Dr. Azar
DVT prophylaxis
Early nutrition
Early mobilization
Code status: Full code
Patient is being prepared for discharge home. No additional recommendations at this time. Tool Supervisor/Pulmonary service will now sign off. Thank you for allowing us to be involved in the care of this patient. Please reconsult if there are any
additional questions/concerns, or if patient's respiratory status deteriorates.
Total time spent today was 42 minutes for this encounter. Time includes reviewing laboratory test/imaging results, reviewing pertinent medical records, obtaining and reviewing medical history, performing an appropriate exam, ordering medications,
tests and procedures. Time also includes documentation of this encounter, coordinating patient care and communicating with other healthcare professionals. Total time does not include separately billed tests performed on this date of service.
Subjective Dataa
Subjective Data
Date of Service:
Date of Service: January 16, 2025
Chief Complaint: Tool Supervisor Follow Up
Subjective:
Pt seen and evaluated this AM. HR 47, BP 114/44 and is on room air breathing comfortably. Plans for being discharged home today. Patient denies chest pain, HECK, nausea, fevers or chills.
Review of Systems
General: Other (Negative unless mentioned above)
Objective Data
Data Reviewed
Vital Signs / I&O / Oxygen:
Vital Signs
Temp Pulse Resp BP Pulse Ox
98.1 F 48 17 122/40 96
01/16/25 08:00 01/16/25 08:45 01/16/25 08:45 01/16/25 08:44 01/16/25 08:45
Intake and Output
01/15/25 01/16/25 01/17/25
06:59 06:59 06:59
Intake Total 180 / 180 2640 / 2720 160 / 160
Output Total 975 / 975
Balance 180 / 180 1665 / 1745 160 / 160
SaO2 96
Nasal Cannula flow liters per 2
minute
Physical Exam
General: Respiratory Distress (negative), Comfortable and Chills (negative)
HEENT: Anicteric and Other (Vertical incision with granulation tissue seen on left anterior neck)
Cardiovascular: S1-S2 and Peripheral Edema (negative)
Respiratory: Clear, Wheeze (negative), Crackles (negative), Rhonchi (negative) and Non-Labored Respirations
GI: Soft, Non Distended, Non Tender and Normal Bowel Sounds
Neurology: AO x 3 and Tremors (negative)
Skin: Warm, Dry, Cyanosis (negative) and Jaundice (negative)
Labs/Micro/Reports
Lab Data
01/16/25 03:03
01/16/25 03:03
Laboratory Results
01/16/25
03:03
PT 17.3 H
INR 1.37
APTT 25.9
[2025-01-16] MEDS: ELIQUIS 5 MG PO (08:39)
--- NOTE | 2025-01-16 08:58 | PTCARENOTE ---
records management clerk, aaox3, GOODMAN, Neuro checks WNL. POC discussed, A-line removed, ambulated to bathroom and voided without issue. Up in chair. Vascular to bedside-see note. IVF stopped, call serra with pt.
--- NOTE | 2025-01-16 11:14 | CM ---
Addendum entered by Shonna Montague 01/16/25 13:25:
CM Consult completed for home health/VN. Patient is agreeable; preference is [facility]NA. Referral sent and acknowledged by [facility] liaison
Plan: Discharge to home with VN
Original Note:
Met with patient at bedside; patient reported that her niece will provide transport home
IMM benefit explained; form signed @ 1112
Plan: Discharge to home today; no needs
--- NOTE | 2025-01-16 11:18 | PTOTSP ---
pt currently requires supervision to no assistance to complete simple ADLs, functional transfers, ambulation. pt will have assistance from family when returning home. no acute OT needs identified at this time, will sign off.
--- NOTE | 2025-01-16 11:45 | W.DCSUMMARY ---
Discharge Summary
Discharge Data
Date of Admission: 01/14/25
Date of Discharge: 01/16/25
Total time spent discharging patient (in min): 54
-
Pending Results: No
Hospital Course
Ms. Ferrara is a 79-year-old female with a medical history of CAD (status post PCI 2000 and 2022), HFpEF, carotid stenosis (status post right carotid surgery), PAD, A-fib (off Eliquis past few days due to scheduled procedure for carotid
stenosis), COPD, CKD stage III, and hypothyroidism who presented following a syncopal event. She lost consciousness and fell in her kitchen hitting the left side of her face. The initial syncopal event was unwitnessed but she was found on the
floor by her daughter. She had no evidence of seizure activity. CT imaging in the ED showed no acute abnormalities. She was initially scheduled for carotid intervention by Dr. Davila on 01/02/2025 due to greater than 80% LICA stenosis. However she
was unable to make that appointment due to being hospitalized for acute on chronic HFpEF. Carotid intervention had been rescheduled for 01/15/2025 and she had been off of her Eliquis in anticipation of this procedure. She was admitted for further
evaluation and management and to proceed with planned carotid endarterectomy.
She went for left carotid endarterectomy with stenting on 01/15/[address] Davila's. She tolerated the procedure well. She will be on triple therapy with aspirin, Plavix, and Eliquis for 30 days postprocedure. She will stop Plavix on 02/15/2025
and continue on aspirin and Eliquis thereafter. Her orthostatic vital signs improved however still positive post procedure. Fortunately she remained asymptomatic during orthostatic vital sign checks. She had no acute events on telemetry although
remained bradycardic with a resting heart rate in the 50s. She will be continued on her home medications which do not include AV esthela blocking agents. She has been instructed to change positions slowly especially when standing up in order to
avoid abrupt hypotension and possible further syncopal episodes. She will need to follow-up closely with her primary care physician for ongoing blood pressure monitoring and medication adjustments as needed. She was evaluated by physical and
Occupational Therapy who felt she had no skilled needs at this time. At the time of hospital discharge she was medically stable.
General: No Apparent Distress, Comfortable
HEENT: NormoCephalic, Moist mucous membranes, left carotid endarterectomy site CDI
Respiratory: Clear and Non Labored Respirations
Cardiac: S1/S2 and Regular Rhythm; No Rub or Gallop
GI: Soft, Non Tender, Non Distended and Normal Bowel Sounds
Musculoskeletal: No Edema, no deformity
Skin: Warm and dry
: NO Shannon
Neuro: Nonfocal/grossly intact, no tremor
Psych: Calm and cooperative
Discharge Plan
-
Patient Disposition: Home (Routine Discharge)
Discharge Diagnosis/Procedures: Left TCAR, syncope
Condition: Good
Diet: As tolerated
Activity: No strenuous activity
Driving Restrictions: Not until seen by your Dr
Bathing Restrictions: OK to Shower
Activity Restrictions/Additional Instructions:
Your blood pressure drops when changing positions, so is very important that you change positions slowly in order to give your body a chance to adjust in order to avoid rapid drop in blood pressure which could lead to loss of consciousness.
You should also monitor your blood pressure closely and work with your primary care physician to adjust your blood pressure medications as needed.
Stand Alone Forms: Vascular Surg Discharge Instr
Referrals:
Sari Maynard DO [Family Provider, Family Practice]
Selene Moore CRNP [Specified Professional Personl, Vascular Surgery] - 01/29/25 2:00 pm
Additional Discharge Medication Instructions: PLEASE STOP PLAVIX ON 02/15/25. You will then continue Eliquis and aspirin.
Prescriptions:
Continued
atorvastatin 80 mg Tablet
80 mg PO HS
lisinopril 10 mg Tablet
10 mg PO DAILY
escitalopram oxalate [Lexapro] 10 mg Tablet
10 mg PO DAILY
ezetimibe [Zetia] 10 mg Tablet
10 mg PO HS
aspirin 81 mg Tablet,Delayed Release (Dr/Ec)
81 mg PO DAILY Qty: 30 0RF
levothyroxine 150 mcg Tablet
125 mcg PO DAILY
furosemide 20 mg Tablet
60 mg PO DAILY Qty: 90 0RF
Eliquis 5 mg Tablet
5 mg PO BID 30 Days Qty: 60 0RF
clopidogrel [Plavix] 75 mg Tablet
75 mg PO DAILY 30 Days Qty: 30 0RF
Rx Instructions:
Discontinue Plavix on 02/15/2025
Discharge Orders:
Discharge Patient (As Directed); Ordered 01/16/25
Ordered By: Zachary Vallejo
Discharge Date and Time
Print Language: ROMANIAN
--- NOTE | 2025-01-16 12:59 | PTCARENOTE ---
Hospitalist notified of non-symptomatic bradycardia. IVs removed. Full instructions discussed. Pt to car via w/c with adrien.
--- NOTE | 2025-01-16 13:48 | VNURNOTE ---
Chart reviewed. Patient left prior to liaison meeting with her. Patient recently had [facility] services last month. She can expect a call from prior to the visit. [facility] referral placed in [facility].
--- NOTE | 2025-01-16 15:00 | PN.CDI ---
CDI
- -
CDI:
Physician Documentation Request
Admit Date: 01/14/25 13:36
Dear Doctor Shirley Peguero,
Patient admitted with left artery carotid stenosis s/p left TCAR.
01/14 Hgb 10.5
01/16 Hgb 8.5
Based on the above, could you clarify, in your progress note, which of the following is the most likely diagnosis you are evaluating, monitoring and/or treating?
Acute blood loss anemia on chronic anemia
Acute blood loss anemia only
Other
Use of terms such as suspected, likely, concern for, or probable (associated with a specific diagnosis that is being evaluated, monitored, or treated as if it exists) are acceptable and can be coded in the inpatient setting, when documented at the
time of discharge.
Thank you,
Marilynn FLEMING,RN,CCDS
CDI Specialist
Available via [employer] text
Please use your independent medical judgment in providing your response.
== END 2025-01-16 14:00 | disposition home health service (06) | DRG 35 ==
LOC: ICU 13:36
PROVIDERS: Nurse Practitioner; Physician Assistant; Registered Nurse; Surgery Vascular Surgery; ADMITTING PHYSICIAN Hospitalist; ATTENDING PHYSICIAN Internal Medicine; CONSULT PHYSICIAN Internal Medicine Critical Care Medicine; EMERGENCY PHYSICIAN Emergency Medicine; FAMILY PHYSICIAN Family Medicine
PROC: X2AJ336 Cerebral Embolic Filtration, Extracorporeal Flow Reversal Circuit from Left Common Carotid Artery, Percutaneous Approach, New Technology Group 6 (ICD-10-PCS; 2025-01-15)
PROC: 037L3EZ Dilation of Left Internal Carotid Artery with Two Intraluminal Devices, Percutaneous Approach (ICD-10-PCS; 2025-01-15)
DX: I65.22 Occlusion and stenosis of left carotid artery (principal); I13.0 Hypertensive heart and chronic kidney disease with heart failure and stage 1 through stage 4 chronic kidney disease, or unspecified chronic kidney disease; N17.9 Acute kidney failure, unspecified; I50.32 Chronic diastolic (congestive) heart failure; I48.0 Paroxysmal atrial fibrillation; I25.10 Atherosclerotic heart disease of native coronary artery without angina pectoris; I34.0 Nonrheumatic mitral (valve) insufficiency; E03.9 Hypothyroidism, unspecified; F41.9 Anxiety disorder, unspecified; E66.9 Obesity, unspecified; N18.30 Chronic kidney disease, stage 3 unspecified; E11.22 Type 2 diabetes mellitus with diabetic chronic kidney disease; R91.1 Solitary pulmonary nodule; I27.20 Pulmonary hypertension, unspecified; D63.1 Anemia in chronic kidney disease; F32.A Depression, unspecified; J44.89 Other specified chronic obstructive pulmonary disease; I73.9 Peripheral vascular disease, unspecified; W18.39XA Other fall on same level, initial encounter; Y93.G3 Activity, cooking and baking; Y92.000 Kitchen of unspecified non-institutional (private) residence as the place of occurrence of the external cause; Z96.651 Presence of right artificial knee joint; Z79.02 Long term (current) use of antithrombotics/antiplatelets; Z79.82 Long term (current) use of aspirin; Z79.01 Long term (current) use of anticoagulants; Z95.5 Presence of coronary angioplasty implant and graft; Z68.27 Body mass index [BMI] 27.0-27.9, adult; Z86.0100 Personal history of colon polyps, unspecified; Z90.49 Acquired absence of other specified parts of digestive tract; Z79.890 Hormone replacement therapy; Z87.891 Personal history of nicotine dependence; Z82.49 Family history of ischemic heart disease and other diseases of the circulatory system; Z83.3 Family history of diabetes mellitus
CPT/HCPCS: 37215; 70450; 80048; 80053; 80061; 82962; 85027; 85610; 85730; 93005; 94640; 95938; 95955; 97162; 97166; 99285; C1725; C1769; C1876; C1894; Q9967

== ENCOUNTER → 2025-04-10 06:55 | Outpatient (REF) | payer OTHER, SELFPAY | LOC: MRI 06:55 | PROVIDERS: ATTENDING PHYSICIAN Family Medicine | DX: M54.16 Radiculopathy, lumbar region (principal) | CPT/HCPCS: 72148 ==